=== PATIENT | male | born 1955 | race Caucasian/White ===

== ENCOUNTER → 2017-02-12 | Outpatient (CLI) | payer BC, MEDICARE ==
[2017-02-12 09:41] LABS: Blood Urea Nitrogen 17 mg/dL (9-20); Non-African American GFR(MDRD) >60 (>60 ml/min/1.73 sqM)
--- NOTE | 2017-02-12 11:04 | CT ---
EXAMINATION TYPE: CT angio chest DATE OF EXAM: 02/12/2017 10:51 AM COMPARISON: Prior CTA chest August 03, 2016. HISTORY: Thoracic aortic aneurysm CT DLP: 873 mGycm. Automated Exposure Control for Dose Reduction was Utilized. CONTRAST: CTA scan of the thorax is performed without and with IV Contrast, patient injected with 100 ml mL of Omnipaque 350, pulmonary embolism protocol. MIP Images are created on CT scanner and reviewed. Three -D reconstructed images are also created on independent workstation and reviewed at time of dictation . FINDINGS: LUNGS: Moderate underlying emphysematous changes felt present. No suspicious parenchymal nodule or ma ss is seen bilaterally. No pleural effusion or pneumothorax is noted. There is elevated left hemidiap hragm redemonstrated. MEDIASTINUM: There is satisfactory enhancement of the pulmonary artery and its branches, there is no CT evidence for pulmonary embolism. There are no greater than 1 cm hilar or mediastinal lymph nodes. No cardiomegaly or pericardial effusion is seen. Ascending aorta measures up to 4.3 x 4.2 cm on ax ial image 36 stable in size and appearance from prior exam. At root level identified. 3.9 cm prominen ce unchanged from prior study on axial image 25. No aneurysmal extension into the aortic arch or desc ending aorta is seen. There is mild to moderate anomaly noncalcified plaque in the descending thoraci c aorta extending into the abdominal aorta. Coronary artery calcification is redemonstrated which is known marker for coronary artery disease. Other: Cholecystectomy clips are redemonstrated. Scoliotic curvature involving the upper thoracic spi ne is redemonstrated. IMPRESSION: Ascending aorta measuring 4.3 cm In diameter on my measurements is stable in size and flynn earance from prior exam.
== END | disposition home or self-care (01) ==
LOC: RADCTMAIN 09:03
PROVIDERS: ATTEND Thoracic Surgery (Cardiothoracic Vascular Surgery)
DX: I71.2 Thoracic aortic aneurysm, without rupture (principal)
CPT/HCPCS: 82565; 84520; 71275; 36415; Q9967

== ENCOUNTER → 2017-09-14 | Outpatient (CLI) | payer BC, MEDICARE ==
[2017-09-14 09:00] LABS: Basophils # (A) 0.2 k/uL (0-0.2); Basophils % (A) 2 %; CH 31.8; CHCM 32.8; Eosinophils # (A) 0.3 k/uL (0-0.7); Eosinophils % (A) 3 %; HDW 2.41; HGB 14.9 gm/dL (13.0-17.5); Luc # (Auto) 0.19; Luc % (Auto) 2; Lymphocytes % (A) 31 %; MCH 30.9 pg (25.0-35.0); MCHC 31.8 g/dL (31.0-37.0); MCV 97.3 fL (80.0-100.0); Mean Platelet Volume 6.7; Monocytes # (A) 0.9 k/uL (0-1.0); Monocytes % (A) 10 %; Neutrophils # (A) 5.1 k/uL (1.3-7.7); Neutrophils % (A) 53 %; RBC 4.83 m/uL (4.30-5.90); RDW 12.8 % (11.5-15.5); WBC 9.7 k/uL (3.8-10.6); WBC (Perox) 9.75
[2017-09-14 09:18] LABS: ALT 27 U/L (21-72); AST 16 U/L (17-59); Alkaline Phosphatase 81 U/L (38-126); Anion Gap 8 mmol/L; Blood Urea Nitrogen 15 mg/dL (9-20); Calcium 9.5 mg/dL (8.4-10.2); Carbon Dioxide 30 mmol/L (22-30); Chloride 101 mmol/L (98-107); Cholesterol 202 mg/dL (<200); Glucose 138 mg/dL (74-99); HDL Cholesterol 45 mg/dL (40-60); Non-African American GFR(MDRD) >60 (>60 ml/min/1.73 sqM); Potassium 4.3 mmol/L (3.5-5.1); Sodium 139 mmol/L (137-145); Total Bilirubin 0.5 mg/dL (0.2-1.3); Total Protein 6.4 g/dL (6.3-8.2)
[2017-09-14 09:46] LABS: Prostate Specific Antigen 1.39 ng/mL (0.00-4.00)
== END | disposition home or self-care (01) ==
LOC: LABWHC1 08:38
PROVIDERS: ATTEND Family Medicine
DX: Z00.01 Encounter for general adult medical examination with abnormal findings (principal); G81.91 Hemiplegia, unspecified affecting right dominant side; J44.9 Chronic obstructive pulmonary disease, unspecified; E11.65 Type 2 diabetes mellitus with hyperglycemia; G45.9 Transient cerebral ischemic attack, unspecified; Z12.5 Encounter for screening for malignant neoplasm of prostate
CPT/HCPCS: 80061; 80053; 84443; 85025; 36415; G0103; 84153

== ENCOUNTER 2018-01-24 12:55 | Inpatient (IN) | payer BC, MEDICARE ==
[2018-01-24] MEDS ORDERED: IBUPROFEN 600 MG TAB PO STA (12:59)
[2018-01-24] MEDS ORDERED: ACETAMINOPHEN TAB 500 MG TAB PO STA (12:59)
[2018-01-24] MEDS ORDERED: IPRATROPIUM-ALBUTEROL 3 ML NEB INHALATION STA (13:02)
--- NOTE | 2018-01-24 13:03 | ED ---
General Adult HPI - General Chief complaint: Shortness of Breath Stated complaint: FABIAN, FLU Time Seen by Provider: 01/24/18 12:55 Source: patient, EMS, RN notes reviewed Mode of arrival: EMS Limitations: no limitations - History of Present Illness Initial comments: This is a 63-year-old male who presents emergency Department with a past medical history significant for COPD. Patient states over the last week his has some difficulty breathing but over the last couple days ago consulting worse they went to urgent care. Urgent care noted that he had a COPD exacerbation but stated his temperature was normal. However when the patient got to the emergency department had 101 fever. Patient states he was exposed to influenza about one week ago. Patient denies any chest pain or palpitations. Patient denies abdominal pain. Patient denies nausea vomiting diarrhea. Patient denies any back pain. Patient states she has been coughing up some sputum however. - Related Data Home Medications Medication Instructions Recorded Confirmed Insulin Aspart [NovoLOG Flexpen] See Protocol SQ AC-TID 12/21/14 01/24/18 Insulin Glargine [Lantus] 24 unit SQ HS 12/21/14 01/24/18 Levothyroxine Sodium [Synthroid] 112 mcg PO DAILY 12/21/14 01/24/18 Tiotropium Ringold [Spiriva] 18 mcg INHALATION RT-DAILY 12/21/14 01/24/18 Aspirin EC [Ecotrin Low Dose] 81 mg PO DAILY 03/09/16 01/24/18 Albuterol Inhaler [Ventolin Hfa 1 - 2 puff INHALATION RT-Q6H PRN 01/24/18 Inhaler] Albuterol Nebulized [Ventolin 2.5 mg INHALATION RT-QID PRN 01/24/18 01/24/18 Nebulized] Budesonide-Formot 160-4.5 Mcg 2 puff INHALATION RT-BID 01/24/18 01/24/18 [Symbicort 160-4.5 Mcg Inhaler] Ciprofloxacin HCl [Cipro] 500 mg PO Q12HR 01/24/18 01/24/18 Depo-Medrol 80 mg IM ONCE 01/24/18 01/24/18 Furosemide [Lasix] 20 mg PO DAILY 01/24/18 01/24/18 Losartan Potassium 100 mg PO DAILY 03/19/18 03/19/18 Varenicline [Chantix Continuing 1 mg PO BID 01/24/18 01/24/18 Pack] predniSONE See Taper PO DIRECTED 01/24/18 01/24/18 Previous Rx's Medication Instructions Recorded Atorvastatin [Lipitor] 80 mg PO DAILY #30 tab 12/24/14 Acetaminophen Tab [Tylenol] 650 mg PO Q4HR PRN #0 tab 09/13/15 Allergies Allergy/AdvReac Type Severity Reaction Status Date / Time bupropion HCl Allergy Unknown Verified 01/24/18 13:03 [From Wellbutrin] Review of Systems ROS Statement: Those systems with pertinent positive or pertinent negative responses have been documented in the HPI. ROS Other: All systems not noted in ROS Statement are negative. Past Medical History Past Medical History: COPD, CVA/TIA, Diabetes Mellitus, Hyperlipidemia, Hypertension, Thyroid Disorder Additional Past Medical History / Comment(s): Hemorrhagic CVA requiring evacuation surgically done at [facility], shingles recovered approximately 6 months ago, COPD and chronic bronchitis, diabetes mellitus, hypertension, hyperlipidemia Last Myocardial Infarction Date:: unk History of Any Multi-Drug Resistant Organisms: None Reported Past Surgical History: Cholecystectomy, Heart Catheterization With Stent, Orthopedic Surgery Additional Past Surgical History / Comment(s): Right ankle ORIF, left arm medial nerve surgery 15 years ago; brain surgery due to hemorrhagic stroke Past Anesthesia/Blood Transfusion Reactions: No Reported Reaction Date of Last Stent Placement:: Past Psychological History: No Psychological Hx Reported Smoking Status: Light tobacco smoker Past Alcohol Use History: None Reported Past Drug Use History: None Reported - Past Family History Mother Family Medical History: Diabetes Mellitus Additional Family Medical History / Comment(s): at age 65 from diabetic complications Father Family Medical History: Myocardial Infarction (PR) Brother(s) Additional Family Medical History / Comment(s): He has 2 brothers, one from AIDS at age 56, one brother is alive and underwent CABG in his 50s. Sister(s) Family Medical History: COPD, Diabetes Mellitus Additional Family Medical History / Comment(s): He has 3 sisters, one from COPD, one is alive with diabetes, one alive and healthy. General Exam - General Exam Comments Initial Comments: GENERAL: Patient is well-developed and well-nourished. Patient is nontoxic and well- hydrated and is in mild distress. ENT: Neck is soft and supple. No significant lymphadenopathy is noted. Oropharynx is clear. Moist mucous membranes. Neck has full range of motion without eliciting any pain. EYES: The sclera were anicteric and conjunctiva were pink and moist. Extraocular movements were intact and pupils were equal round and reactive to light. Eyelids were unremarkable. PULMONARY: Unlabored respirations. Good breath sounds bilaterally. Patient has symmetric very wheezing. CARDIOVASCULAR: There is a regular rate and rhythm without any murmurs gallops or rubs. ABDOMEN: Soft and nontender with normal bowel sounds. No palpable organomegaly was noted. There is no palpable pulsatile mass. SKIN: Skin is clear with no lesions or rashes and otherwise unremarkable. NEUROLOGIC: Patient is alert and oriented x3. Cranial nerves II through XII are grossly intact. Motor and sensory are also intact. Normal speech, volume and content. Symmetrical smile. MUSCULOSKELETAL: Normal extremities with adequate strength and full range of motion. LYMPHATICS: No significant lymphadenopathy is noted PSYCHIATRIC: Normal psychiatric evaluation. Limitations: no limitations Course Vital Signs 01/24/18 01/24/18 01/24/18 12:58 12:59 13:44 Temperature 100.8 F H Pulse Rate 125 H 114 H Respiratory 24 22 Rate Blood Pressure 143/80 O2 Sat by Pulse 93 L Oximetry 01/24/18 13:55 Temperature Pulse Rate 112 H Respiratory Rate Blood Pressure O2 Sat by Pulse Oximetry Medical Decision Making - Medical Decision Making EKG shows sinus tachycardia at a rate of 120 bpm GA interval is 140 QRS 72 QT interval 376 QTC is 531. Patient's EKG shows no ST segment elevation or depression or T wave abnormalities are noted. Chest x-ray shows no acute abnormality. Patient is oxygenating better but won't take him off and she dropped down into the 88. I spoke with Dr. Galeana he agreed to admit the patient admitted the patient I wrote admitting orders I continued steroids and breathing treatments on the floor. - Lab Data Result diagrams: 01/24/18 13:08 01/24/18 13:08 Lab Results 01/24/18 01/24/18 01/24/18 Range/Units 13:08 13:08 13:46 WBC 14.8 H (3.8-10.6) k/uL RBC 5.21 (4.30-5.90) m/uL Hgb 15.9 (13.0-17.5) gm/dL Hct 47.1 (39.0-53.0) % MCV 90.4 (80.0-100.0) fL MCH 30.5 (25.0-35.0) pg MCHC 33.7 (31.0-37.0) g/dL RDW 13.7 (11.5-15.5) % Plt Count 232 (150-450) k/uL Neutrophils % 79 % Lymphocytes % 13 % Monocytes % 6 % Eosinophils % 0 % Basophils % 1 % Neutrophils # 11.7 H (1.3-7.7) k/uL Lymphocytes # 1.9 (1.0-4.8) k/uL Monocytes # 1.0 (0-1.0) k/uL Eosinophils # 0.0 (0-0.7) k/uL Basophils # 0.1 (0-0.2) k/uL Sodium 136 L (137-145) mmol/L Potassium 4.0 (3.5-5.1) mmol/L Chloride 99 (98-107) mmol/L Carbon Dioxide 23 (22-30) mmol/L Anion Gap 14 mmol/L BUN 18 (9-20) mg/dL Creatinine 0.79 (0.66-1.25) mg/dL Est GFR (CKD-EPI)AfAm >90 (>60 ml/min/1.73 sqM) Est GFR (CKD-EPI)NonAf >90 (>60 ml/min/1.73 sqM) Glucose 271 H (74-99) mg/dL Plasma Lactic Acid Young (0.7-2.0) mmol/L Calcium 9.3 (8.4-10.2) mg/dL Total Bilirubin 1.4 H (0.2-1.3) mg/dL AST 30 (17-59) U/L ALT 46 (21-72) U/L Alkaline Phosphatase 105 (38-126) U/L Total Protein 6.9 (6.3-8.2) g/dL Albumin 3.9 (3.5-5.0) g/dL Influenza Type A RNA Not Detected (Not Detectd) Influenza Type B (PCR) Not Detected (Not Detectd) 01/24/18 Range/Units 13:46 WBC (3.8-10.6) k/uL RBC (4.30-5.90) m/uL Hgb (13.0-17.5) gm/dL Hct (39.0-53.0) % MCV (80.0-100.0) fL MCH (25.0-35.0) pg MCHC (31.0-37.0) g/dL RDW (11.5-15.5) % Plt Count (150-450) k/uL Neutrophils % % Lymphocytes % % Monocytes % % Eosinophils % % Basophils % % Neutrophils # (1.3-7.7) k/uL Lymphocytes # (1.0-4.8) k/uL Monocytes # (0-1.0) k/uL Eosinophils # (0-0.7) k/uL Basophils # (0-0.2) k/uL Sodium (137-145) mmol/L Potassium (3.5-5.1) mmol/L Chloride (98-107) mmol/L Carbon Dioxide (22-30) mmol/L Anion Gap mmol/L BUN (9-20) mg/dL Creatinine (0.66-1.25) mg/dL Est GFR (CKD-EPI)AfAm (>60 ml/min/1.73 sqM) Est GFR (CKD-EPI)NonAf (>60 ml/min/1.73 sqM) Glucose (74-99) mg/dL Plasma Lactic Acid Young 1.5 (0.7-2.0) mmol/L Calcium (8.4-10.2) mg/dL Total Bilirubin (0.2-1.3) mg/dL AST (17-59) U/L ALT (21-72) U/L Alkaline Phosphatase (38-126) U/L Total Protein (6.3-8.2) g/dL Albumin (3.5-5.0) g/dL Influenza Type A RNA (Not Detectd) Influenza Type B (PCR) (Not Detectd) Disposition Clinical Impression: Acute exacerbation of chronic obstructive pulmonary disease (COPD) Disposition: ADMITTED IP TO THIS HOSP Referrals: Lee Galeana MD [Primary Care Provider] - 1-2 days Time of Disposition: 14:19
[2018-01-24] MEDS: SODIUM CHLORIDE 0.9% 500 ML IV SCH ×2 (13:11→13:12)
--- NOTE | 2018-01-24 13:45 | XR ---
EXAMINATION TYPE: XR chest 2V DATE OF EXAM: 01/24/2018 COMPARISON: 03/08/2016 HISTORY: Flulike symptoms TECHNIQUE: Frontal and lateral views of the chest are obtained. FINDINGS: There is chronic left hemidiaphragm elevation and left basilar subsegmental atelectasis in comparison to the exam of 2016. Vertebral bodies appear to demonstrate osseous demineralization. Biap ical lucency suggests underlying COPD. There is no focal air space opacity, pleural effusion, or pneu mothorax seen. The cardiac silhouette size is within normal limits. The osseous structures are int act. IMPRESSION: Findings suggesting underlying COPD and chronic left hemidiaphragm elevation/left basilar atelectasis. No acute cardiopulmonary process.
[2018-01-24 13:47] LABS: Basophils # (A) 0.1 k/uL (0-0.2); Basophils % (A) 1 %; Eosinophils % (A) 0 %; HCT 47.1 % (39.0-53.0); HGB 15.9 gm/dL (13.0-17.5); Lymphocytes # (A) 1.9 k/uL (1.0-4.8); Lymphocytes % (A) 13 %; MCH 30.5 pg (25.0-35.0); MCHC 33.7 g/dL (31.0-37.0); MCV 90.4 fL (80.0-100.0); Mean Platelet Volume 8.8; Monocytes % (A) 6 %; Neutrophils # (A) 11.7 k/uL (1.3-7.7); Neutrophils % (A) 79 %; Platelet Count 232 k/uL (150-450); RBC 5.21 m/uL (4.30-5.90); RDW 13.7 % (11.5-15.5); WBC 14.8 k/uL (3.8-10.6)
[2018-01-24 13:57] LABS: ALT 46 U/L (21-72); AST 30 U/L (17-59); Albumin 3.9 g/dL (3.5-5.0); Alkaline Phosphatase 105 U/L (38-126); Anion Gap 14 mmol/L; Blood Urea Nitrogen 18 mg/dL (9-20); Calcium 9.3 mg/dL (8.4-10.2); Carbon Dioxide 23 mmol/L (22-30); Chloride 99 mmol/L (98-107); Glucose 271 mg/dL (74-99); Sodium 136 mmol/L (137-145); Total Bilirubin 1.4 mg/dL (0.2-1.3); Total Protein 6.9 g/dL (6.3-8.2)
[2018-01-24 14:18] LABS: Partial Thromboplastin Time 21.5 sec (22.0-30.0)
[2018-01-24] MEDS ORDERED: LEVOFLOXACIN 750MG-D5W PMX 750 MG in DEXTROSE/WATER 1 150ML.BAG IVPB STA (14:19)
[2018-01-24] MEDS ORDERED: IPRATROPIUM-ALBUTEROL 3 ML NEB INHALATION PRN (14:20)
[2018-01-24 16:02] VITALS: BMI 24.4
[2018-01-24 17:26] LABS: Appearance,Urine Clear (Clear); Bilirubin,Urine Negative (Negative); Blood,Urine Negative (Negative); Color,Urine Yellow; Glucose,Urine (UA) 4+ (Negative); Ketones,Urine 1+ (Negative); Leukocyte Esterase,Urine Negative (Negative); Nitrite,Urine Negative (Negative); PH, Urine 5.5 (5.0-8.0); Protein,Urine Trace (Negative); Specific Gravity,Urine 1.021 (1.001-1.035); Urobilinogen,Urine <2.0 mg/dL (<2.0)
[2018-01-24 17:26] LABS: Glucose,Whole Blood 442 mg/dL (75-99)
[2018-01-24] MEDS: methylPREDNISolone SOD SUCCI 125 MG/2 ML VIAL IV SCH (17:41)
[2018-01-24] MEDS: INSULIN ASPART 100 UNIT/ML 1 ML 10 ML VIAL SQ SCH ×2 (17:41→22:24)
[2018-01-24] MEDS: HEPARIN SODIUM,PORCINE 5,000 UNIT/ML 1 ML VIAL SQ SCH (17:41)
[2018-01-24 20:33] LABS: Glucose,Whole Blood >600 mg/dL (75-99)
[2018-01-24 20:33] LABS: Glucose,Whole Blood >600 mg/dL (75-99)
[2018-01-24] MEDS ORDERED: INSULIN DETEMIR 100 UNIT/ML 10 ML VIAL SQ SCH (21:00)
[2018-01-24] MEDS: VARENICLINE 1 MG TAB PO SCH (22:24)
[2018-01-24] MEDS: INSULIN REGULAR 100 UNIT in SODIUM CHLORIDE 0.9% 100 ML IV SCH (23:54)
[2018-01-25 00:43] LABS: Glucose,Whole Blood 411 mg/dL (75-99)
[2018-01-25 01:03] LABS: Glucose,Whole Blood 420 mg/dL (75-99)
[2018-01-25] MEDS: methylPREDNISolone SOD SUCCI 125 MG/2 ML VIAL IV SCH ×5 (01:04→23:29)
[2018-01-25] MEDS: HEPARIN SODIUM,PORCINE 5,000 UNIT/ML 1 ML VIAL SQ SCH ×4 (01:04→23:29)
[2018-01-25 01:31] LABS: Glucose,Whole Blood 325 mg/dL (75-99)
[2018-01-25 02:03] LABS: Glucose,Whole Blood 307 mg/dL (75-99)
[2018-01-25 02:41] LABS: Glucose,Whole Blood 238 mg/dL (75-99)
[2018-01-25 04:31] LABS: Hemoglobin A1C 12.9 % (4.0-6.0)
[2018-01-25 04:31] LABS: Glucose,Whole Blood 151 mg/dL (75-99)
[2018-01-25 06:28] LABS: Glucose,Whole Blood 148 mg/dL (75-99)
[2018-01-25] MEDS: LEVOTHYROXINE 112 MCG TAB PO SCH (06:30)
[2018-01-25] MEDS ORDERED: INSULIN ASPART 100 UNIT/ML 1 ML 10 ML VIAL SQ SCH ×3 (07:30)
[2018-01-25] MEDS ORDERED: IPRATROPIUM 0.5 MG/2.5 ML NEBU INHALATION SCH (08:00)
[2018-01-25 08:13] LABS: Basophils % (A) 0 %; Eosinophils % (A) 0 %; HCT 41.6 % (39.0-53.0); HGB 14.3 gm/dL (13.0-17.5); Lymphocytes # (A) 1.2 k/uL (1.0-4.8); Lymphocytes % (A) 10 %; MCH 31.3 pg (25.0-35.0); MCHC 34.4 g/dL (31.0-37.0); MCV 90.9 fL (80.0-100.0); Mean Platelet Volume 6.7; Monocytes # (A) 0.6 k/uL (0-1.0); Monocytes % (A) 5 %; Neutrophils # (A) 10.5 k/uL (1.3-7.7); Neutrophils % (A) 84 %; Platelet Count 217 k/uL (150-450); RBC 4.58 m/uL (4.30-5.90); RDW 13.7 % (11.5-15.5); WBC 12.5 k/uL (3.8-10.6)
[2018-01-25 08:39] LABS: ALT 36 U/L (21-72); AST 26 U/L (17-59); Albumin 3.4 g/dL (3.5-5.0); Alkaline Phosphatase 77 U/L (38-126); Anion Gap 11 mmol/L; Blood Urea Nitrogen 25 mg/dL (9-20); Calcium 9.1 mg/dL (8.4-10.2); Carbon Dioxide 31 mmol/L (22-30); Chloride 100 mmol/L (98-107); Glucose 125 mg/dL (74-99); Potassium 3.9 mmol/L (3.5-5.1); Sodium 142 mmol/L (137-145); Total Bilirubin 0.9 mg/dL (0.2-1.3); Total Protein 6.2 g/dL (6.3-8.2)
[2018-01-25 08:46] LABS: Glucose,Whole Blood 206 mg/dL (75-99)
[2018-01-25] MEDS: ATORVASTATIN 80 MG TAB PO SCH (09:30)
[2018-01-25] MEDS: VARENICLINE 1 MG TAB PO SCH ×2 (09:30→20:46)
[2018-01-25] MEDS: LOSARTAN 50 MG TAB PO SCH (09:30)
[2018-01-25] MEDS: FUROSEMIDE 20 MG TAB PO SCH (09:30)
[2018-01-25] MEDS: ASPIRIN 81 MG PO SCH (09:31)
[2018-01-25] MEDS: PANTOPRAZOLE 40 MG TABLET PO SCH (09:31)
[2018-01-25] MEDS: INSULIN ASPART 100 UNIT/ML 1 ML 10 ML VIAL SQ SCH ×3 (09:31→18:45)
--- NOTE | 2018-01-25 10:12 | P.HPIM ---
History of Present Illness H&P Date: 01/25/18 Chief Complaint: Shortness of breath 63-year-old male who presented to the emergency room with a chief complaint of shortness of breath. The patient states he originally went to urgent care and was told he possibly was having a COPD exacerbation and was referred to the emergency room. Patient admits to sputum production. Admits to feeling feverish. Temperature when he presented to the emergency room was 100.8. Patient denies chest pain or pressure. Denies palpitations. Denies pain or discomfort. Denies nausea or vomiting. The patient states he was exposed to someone with influenza approximately one week ago. Testing for influenza was negative. The patient has a history of COPD, diabetes mellitus type 2, hyperlipidemia, hypertension, and hypothyroidism. 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 He was also diagnosed with shingles approximately 6 months ago. Patient is a history of stent placement. He is a former cigarette smoker. Chest x-ray: Findings suggestive of underlying COPD and chronic left hemidiaphragm elevation/left basilar atelectasis. No acute cardiopulmonary process. Laboratory data: WBC 14.8. Hemoglobin 15.9. Platelet count 232. Sodium 136. Potassium 4.0. B UN 18. Creatinine 0.79. Glucose 271. Lactic acid 1.5. Urinalysis reveals: Trace proteinuria, 4+ glucose, 1+ ketones The patient was admitted to the hospital under the care of Dr. Galeana. Consultations were placed to pulmonary. His blood sugars were significantly elevated last night with readings over 600. He was started on insulin drip. Review of Systems GENERAL: Positive for fevers. Denies chills. EYES: Denies blurred vision. Denies vision changes. Denies eye pain. EARS, NOSE, MOUTH, & THROAT: Denies headache. Denies sore throat. Denies ear pain. RESPIRATORY: Positive for shortness of breath. Positive for sputum production. Positive for coughing. Denies hemoptysis. CARDIOVASCULAR: Denies chest pain or pressure. Denies palpitations. Denies arrhythmias. GASTROINTESTINAL: Denies abdominal pain. Denies diarrhea. Denies constipation. Denies nausea. Denies vomiting. Denies heartburn. Denies blood in the stool. GENITOURINARY: Denies urinary frequency. Denies burning. Denies dysuria. Denies cloudy urine. Denies blood in the urine. MUSCULOSKELETAL: Denies myalgias. Denies joint swelling. Denies decreased range of motion beyond patients baseline. INTEGUMENTARY: Denies pruitis. Denies rash. PSYCHIATRIC: Denies suicidal or homicial ideations. ENDOCRINE: Denies weight change. Denies polydipsia. Denies polyuria. HEMATOLOGIC: Denies bleeding disorders. Past Medical History Past Medical History: COPD, CVA/TIA, Diabetes Mellitus, Hyperlipidemia, Hypertension, Thyroid Disorder Additional Past Medical History / Comment(s): Hemorrhagic CVA requiring evacuation surgically done at [facility], shingles recovered approximately 6 months ago, COPD and chronic bronchitis, diabetes mellitus, hypertension, hyperlipidemia Last Myocardial Infarction Date:: unk History of Any Multi-Drug Resistant Organisms: None Reported Past Surgical History: Cholecystectomy, Heart Catheterization With Stent, Orthopedic Surgery Additional Past Surgical History / Comment(s): Right ankle ORIF, left arm medial nerve surgery 15 years ago; brain surgery due to hemorrhagic stroke Past Anesthesia/Blood Transfusion Reactions: No Reported Reaction Date of Last Stent Placement:: Past Psychological History: No Psychological Hx Reported Smoking Status: Former smoker Past Alcohol Use History: None Reported Additional Past Alcohol Use History / Comment(s): Patient is a smoker of one pack per day for 30 years. He stopped 9 months ago He drinks alcohol infrequently. He lives at home with his and 7-year-old daughter. He also has 3 adult daughters that are healthy. 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 Past Drug Use History: None Reported - Past Family History Mother Family Medical History: Diabetes Mellitus Additional Family Medical History / Comment(s): at age 65 from diabetic complications Father Family Medical History: Myocardial Infarction ([place]) Brother(s) Additional Family Medical History / Comment(s): He has 2 brothers, one from AIDS at age 56, one brother is alive and underwent CABG in his 50s. Sister(s) Family Medical History: COPD, Diabetes Mellitus Additional Family Medical History / Comment(s): He has 3 sisters, one from COPD, one is alive with diabetes, one alive and healthy. Medications and Allergies Home Medications Medication Instructions Recorded Confirmed Type Insulin Aspart [NovoLOG Flexpen] See Protocol SQ AC-TID 12/21/14 01/24/18 History Insulin Glargine [Lantus] 24 unit SQ HS 12/21/14 01/24/18 History Levothyroxine Sodium [Synthroid] 112 mcg PO DAILY 12/21/14 01/24/18 History Tiotropium [place] [Spiriva] 18 mcg INHALATION RT-DAILY 12/21/14 01/24/18 History Atorvastatin [Lipitor] 80 mg PO DAILY #30 tab 12/24/14 01/24/18 Rx Acetaminophen Tab [Tylenol] 650 mg PO Q4HR PRN #0 tab 09/13/15 03/09/16 Rx Aspirin EC [Ecotrin Low Dose] 81 mg PO DAILY 03/09/16 01/24/18 History Albuterol Inhaler [Ventolin Hfa 1 - 2 puff INHALATION RT-Q6H PRN 01/24/18 History Inhaler] Albuterol Nebulized [Ventolin 2.5 mg INHALATION RT-QID PRN 01/24/18 01/24/18 History Nebulized] Budesonide-Formot 160-4.5 Mcg 2 puff INHALATION RT-BID 01/24/18 01/24/18 History [Symbicort 160-4.5 Mcg Inhaler] Ciprofloxacin HCl [Cipro] 500 mg PO Q12HR 01/24/18 01/24/18 History Depo-Medrol 80 mg IM ONCE 01/24/18 01/24/18 History Furosemide [Lasix] 20 mg PO DAILY 01/24/18 01/24/18 History Losartan Potassium 100 mg PO DAILY 01/24/18 01/24/18 History Varenicline [Chantix Continuing 1 mg PO BID 01/24/18 01/24/18 History Pack] predniSONE See Taper PO DIRECTED 01/24/18 01/24/18 History Allergies Allergy/AdvReac Type Severity Reaction Status Date / Time bupropion HCl Allergy Unknown Verified 01/24/18 13:03 [From Wellbutrin] Physical Exam Vitals: Vital Signs Temp Pulse Pulse Resp BP BP Pulse Ox 01/25/18 07:54 80 01/25/18 07:43 76 01/25/18 06:36 97.0 F L 67 16 115/76 96 01/24/18 23:00 98.0 F 89 16 129/50 92 L 01/24/18 15:53 97.3 F L 103 H 18 103/63 95 01/24/18 15:44 98.8 F 85 18 104/58 94 L 01/24/18 15:22 85 18 104/58 94 L 01/24/18 13:55 112 H 01/24/18 13:44 114 H 01/24/18 12:59 22 01/24/18 12:58 100.8 F H 125 H 24 143/80 93 L Intake and Output 01/24/18 01/25/18 01/25/18 22:59 06:59 14:59 Intake Total 80.608 4.525 Balance 80.608 4.525 Intake: Intake, IV Titration 80.608 4.525 Amount Insulin Regular 100 unit 80.608 4.525 In Sodium Chloride 0.9% 100 ml @ Titrate IV .Q0M [facility] Rx#:[id number] Other: # Voids 1 2 # Bowel Movements 0 0 GENERAL: This is a 63-year-old male in no apparent distress at the time of examination. Pleasant and cooperative. HEENT: Head is atraumatic, normocephalic. Pupils are equal, round, and reactive to light. Sclerae anicteric. Conjunctivae are clear. Mucus membranes of the mouth are moist. Neck is supple. RESPIRATORY: Decreased air exchange. Expiratory wheezing noted. Scattered rhonchi. Frequent coughing noted during examination. No use of accessory muscles. Patient maintaining oxygen saturation greater than 92% on 3 L nasal cannula. No chest wall tenderness is noted on palpation or with deep breathing. CARDIOVASCULAR: Regular rate and rhythm. S1 and S2 noted. No JVD noted. No S3 or S4 noted. GASTROINTESTINAL: No distention noted. Abdomen soft and round. Normal active bowel sounds auscultated x 4 quadrants. No pain or tenderness noted upon palpation. INTEGUMENTARY: No cyanosis. No jaundice. No rashes noted. No cellulitis noted. EXTREMITIES: 2+ peripheral pulses. No evidence of peripheral edema. No calf tenderness noted. NEUROLOGIC: Cranial nerves II-XII intact. PSYCHIATRIC: Awake, alert, and oriented X 3. Appropriate affect. Intact judgement and insight. Results CBC & Chem 7: 01/25/18 07:35 01/25/18 07:35 Labs: Abnormal Lab Results - Last 24 Hours (Table) 01/24/18 01/24/18 01/24/18 Range/Units 13:08 13:08 13:08 WBC 14.8 H (3.8-10.6) k/uL Neutrophils # 11.7 H (1.3-7.7) k/uL APTT 21.5 L (22.0-30.0) sec Sodium 136 L (137-145) mmol/L Carbon Dioxide (22-30) mmol/L BUN (9-20) mg/dL Glucose 271 H (74-99) mg/dL POC Glucose (mg/dL) (75-99) mg/dL Hemoglobin A1c (4.0-6.0) % Total Bilirubin 1.4 H (0.2-1.3) mg/dL Total Protein (6.3-8.2) g/dL Albumin (3.5-5.0) g/dL Urine Protein (Negative) Urine Glucose (UA) (Negative) Urine Ketones (Negative) 01/24/18 01/24/18 01/24/18 Range/Units 13:08 17:00 17:14 WBC (3.8-10.6) k/uL Neutrophils # (1.3-7.7) k/uL APTT (22.0-30.0) sec Sodium (137-145) mmol/L Carbon Dioxide (22-30) mmol/L BUN (9-20) mg/dL Glucose (74-99) mg/dL POC Glucose (mg/dL) 442 H (75-99) mg/dL Hemoglobin A1c 12.9 H (4.0-6.0) % Total Bilirubin (0.2-1.3) mg/dL Total Protein (6.3-8.2) g/dL Albumin (3.5-5.0) g/dL Urine Protein Trace H (Negative) Urine Glucose (UA) 4+ H (Negative) Urine Ketones 1+ H (Negative) 01/24/18 01/24/18 01/24/18 Range/Units 20:22 20:24 21:22 WBC (3.8-10.6) k/uL Neutrophils # (1.3-7.7) k/uL APTT (22.0-30.0) sec Sodium (137-145) mmol/L Carbon Dioxide (22-30) mmol/L BUN (9-20) mg/dL Glucose 593 H* (74-99) mg/dL POC Glucose (mg/dL) >600 H >600 H (75-99) mg/dL Hemoglobin A1c (4.0-6.0) % Total Bilirubin (0.2-1.3) mg/dL Total Protein (6.3-8.2) g/dL Albumin (3.5-5.0) g/dL Urine Protein (Negative) Urine Glucose (UA) (Negative) Urine Ketones (Negative) 01/25/18 01/25/18 01/25/18 Range/Units 00:29 01:01 01:29 WBC (3.8-10.6) k/uL Neutrophils # (1.3-7.7) k/uL APTT (22.0-30.0) sec Sodium (137-145) mmol/L Carbon Dioxide (22-30) mmol/L BUN (9-20) mg/dL Glucose (74-99) mg/dL POC Glucose (mg/dL) 411 H 420 H 325 H (75-99) mg/dL Hemoglobin A1c (4.0-6.0) % Total Bilirubin (0.2-1.3) mg/dL Total Protein (6.3-8.2) g/dL Albumin (3.5-5.0) g/dL Urine Protein (Negative) Urine Glucose (UA) (Negative) Urine Ketones (Negative) 01/25/18 01/25/18 01/25/18 Range/Units 02:01 02:38 04:29 WBC (3.8-10.6) k/uL Neutrophils # (1.3-7.7) k/uL APTT (22.0-30.0) sec Sodium (137-145) mmol/L Carbon Dioxide (22-30) mmol/L BUN (9-20) mg/dL Glucose (74-99) mg/dL POC Glucose (mg/dL) 307 H 238 H 151 H (75-99) mg/dL Hemoglobin A1c (4.0-6.0) % Total Bilirubin (0.2-1.3) mg/dL Total Protein (6.3-8.2) g/dL Albumin (3.5-5.0) g/dL Urine Protein (Negative) Urine Glucose (UA) (Negative) Urine Ketones (Negative) 01/25/18 01/25/18 01/25/18 Range/Units 06:26 07:35 07:35 WBC 12.5 H (3.8-10.6) k/uL Neutrophils # 10.5 H (1.3-7.7) k/uL APTT (22.0-30.0) sec Sodium (137-145) mmol/L Carbon Dioxide 31 H (22-30) mmol/L BUN 25 H (9-20) mg/dL Glucose 125 H (74-99) mg/dL POC Glucose (mg/dL) 148 H (75-99) mg/dL Hemoglobin A1c (4.0-6.0) % Total Bilirubin (0.2-1.3) mg/dL Total Protein 6.2 L (6.3-8.2) g/dL Albumin 3.4 L (3.5-5.0) g/dL Urine Protein (Negative) Urine Glucose (UA) (Negative) Urine Ketones (Negative) 01/25/18 Range/Units 08:31 WBC (3.8-10.6) k/uL Neutrophils # (1.3-7.7) k/uL APTT (22.0-30.0) sec Sodium (137-145) mmol/L Carbon Dioxide (22-30) mmol/L BUN (9-20) mg/dL Glucose (74-99) mg/dL POC Glucose (mg/dL) 206 H (75-99) mg/dL Hemoglobin A1c (4.0-6.0) % Total Bilirubin (0.2-1.3) mg/dL Total Protein (6.3-8.2) g/dL Albumin (3.5-5.0) g/dL Urine Protein (Negative) Urine Glucose (UA) (Negative) Urine Ketones (Negative) Microbiology - Last 24 Hours (Table) 01/24/18 17:00 Urine Culture - Preliminary Urine,Clean Catch Thrombosis Risk Factor Assmnt - Choose All That Apply Any of the Below Risk Factors Present?: Yes Each Factor Represents 1 point: Abnormal pulmonary function (COPD) Other Risk Factors: Yes Each Risk Factor Represents 2 Points: Age 61-74 years Thrombosis Risk Factor Assessment Total Risk Factor Score: 3 Thrombosis Risk Factor Assessment Level: Moderate Risk Assessment and Plan Plan: ASSESSMENT: Acute exacerbation of chronic obstructive pulmonary disease Fever, tachycardia, and leukocytosis, present on admission, meets SIRS criteria Diabetes mellitus, type II, hemoglobin A1c 12.9% Hyperglycemia, secondary to IV steroids and uncontrolled diabetes mellitus History of hemorrhagic CVA Essential hypertension Coronary artery disease with previous stent placement Hyperlipidemia Hypothyroidism History of nicotine dependence, in remission, patient states he quit smoking 9 months ago after smoking 1 pack per day for 30 years PLAN: Pulmonary on consult. Appreciate recommendations and input Continue IV steroids: 60 mg Q6 hours Continue empiric antibiotics in the form of Levaquin 750 mg daily 24 hours Continue insulin drip. Possible transition to sliding scale tomorrow Consult ems educator for uncontrolled diabetes Home meds as appropriate Monitor labs GI prophylaxis: Protonix 40 mg PO Daily DVT prophylaxis: Heparin 5000 units subcu every 8 hours Monitor vital signs and address as appropriate Discharge planning: Patient to return home when stable Further recommendations pending patient's course Nurse practitioner note has been reviewed by physician. Signing provider agrees with the documented findings, assessment, and plan of care.
[2018-01-25 10:40] LABS: Glucose,Whole Blood 328 mg/dL (75-99)
[2018-01-25] MEDS: IPRATROPIUM-ALBUTEROL 3 ML NEB INHALATION SCH ×3 (11:39→20:37)
[2018-01-25 12:47] LABS: Glucose,Whole Blood 217 mg/dL (75-99)
--- NOTE | 2018-01-25 13:00 | P.CNPUL ---
History of Present Illness Consult date: 01/25/18 Reason for consult: dyspnea, cough, COPD, hypoxemia, abnormal CXR/CT Chief complaint: Shortness of breath History of present illness: Consult dated 01/25/2018 This is a 63-year-old male who presents to the emergency department on January 24 with complaints of increasing shortness of breath. He was seen by me in the office recently treated with Depo-Medrol and extended prednisone burst and taper and some antibiotics. Despite that, he did not improve and that's why he ended up coming to the emergency room. In addition, between the time he saw me last in the ER visit, he apparently went to urgent care. He was found have a slight temperature elevation. He apparently was exposed to influenza was concern. His complaints include chest tightness wheezing coughing chest congestion and phlegm production. Chest x-ray was negative for infiltrate. It just showed COPD. I was concerned the last time I saw him that he might not get better and told to come to the emergency room and they did not. In fact, I think he would benefit from bronchoscopy BAL and airway examination. Review of Systems A 12 point review of system is positive for shortness of breath chest tightness wheezing cough and chest congestion. Past Medical History Past Medical History: COPD, CVA/TIA, Diabetes Mellitus, Hyperlipidemia, Hypertension, Thyroid Disorder Additional Past Medical History / Comment(s): Hemorrhagic CV[facility], COPD and chronic bronchitis, diabetes mellitus, hypertension, hyperlipidemia Last Myocardial Infarction Date:: unk History of Any Multi-Drug Resistant Organisms: None Reported Past Surgical History: Cholecystectomy, Heart Catheterization With Stent, Orthopedic Surgery Additional Past Surgical History / Comment(s): Right ankle ORIF, left arm medial nerve surgery 15 years ago; brain surgery due to hemorrhagic stroke Past Anesthesia/Blood Transfusion Reactions: No Reported Reaction Date of Last Stent Placement:: Past Psychological History: No Psychological Hx Reported Smoking Status: Former smoker Past Alcohol Use History: None Reported Additional Past Alcohol Use History / Comment(s): Patient is a smoker of one pack per day for 30 years. He stopped 9 months ago He drinks alcohol infrequently. He lives at home with his and 7-year-old daughter. He also has 3 adult daughters that are healthy. 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 Past Drug Use History: None Reported - Past Family History Mother Family Medical History: Diabetes Mellitus Additional Family Medical History / Comment(s): at age 65 from diabetic complications Father Family Medical History: Myocardial Infarction ([place]) Brother(s) Additional Family Medical History / Comment(s): He has 2 brothers, one from AIDS at age 56, one brother is alive and underwent CABG in his 50s. Sister(s) Family Medical History: COPD, Diabetes Mellitus Additional Family Medical History / Comment(s): He has 3 sisters, one from COPD, one is alive with diabetes, one alive and healthy. Medications and Allergies Home Medications Medication Instructions Recorded Confirmed Type Insulin Aspart [NovoLOG Flexpen] See Protocol SQ AC-TID 12/21/14 01/24/18 History Insulin Glargine [Lantus] 24 unit SQ HS 12/21/14 01/24/18 History Levothyroxine Sodium [Synthroid] 112 mcg PO DAILY 12/21/14 01/24/18 History Tiotropium [place] [Spiriva] 18 mcg INHALATION RT-DAILY 12/21/14 01/24/18 History Atorvastatin [Lipitor] 80 mg PO DAILY #30 tab 12/24/14 01/24/18 Rx Acetaminophen Tab [Tylenol] 650 mg PO Q4HR PRN #0 tab 09/13/15 03/09/16 Rx Aspirin EC [Ecotrin Low Dose] 81 mg PO DAILY 03/09/16 01/24/18 History Albuterol Inhaler [Ventolin Hfa 1 - 2 puff INHALATION RT-Q6H PRN 01/24/18 History Inhaler] Albuterol Nebulized [Ventolin 2.5 mg INHALATION RT-QID PRN 01/24/18 01/24/18 History Nebulized] Budesonide-Formot 160-4.5 Mcg 2 puff INHALATION RT-BID 01/24/18 01/24/18 History [Symbicort 160-4.5 Mcg Inhaler] Ciprofloxacin HCl [Cipro] 500 mg PO Q12HR 01/24/18 01/24/18 History Depo-Medrol 80 mg IM ONCE 01/24/18 01/24/18 History Furosemide [Lasix] 20 mg PO DAILY 01/24/18 01/24/18 History Losartan Potassium 100 mg PO DAILY 01/24/18 01/24/18 History Varenicline [Chantix Continuing 1 mg PO BID 01/24/18 01/24/18 History Pack] predniSONE See Taper PO DIRECTED 01/24/18 01/24/18 History Allergies Allergy/AdvReac Type Severity Reaction Status Date / Time bupropion HCl Allergy Unknown Verified 01/24/18 13:03 [From Wellbutrin] Physical Exam Osteopathic Statement: *. No significant issues noted on an osteopathic structural exam other than those noted in the History and Physical/Consult. Vitals: Vital Signs Temp Pulse Pulse Resp BP BP Pulse Ox 01/25/18 11:52 108 H 01/25/18 11:39 116 H 01/25/18 07:54 80 01/25/18 07:43 76 01/25/18 06:36 97.0 F L 67 16 115/76 96 01/24/18 23:00 98.0 F 89 16 129/50 92 L 01/24/18 15:53 97.3 F L 103 H 18 103/63 95 01/24/18 15:44 98.8 F 85 18 104/58 94 L 01/24/18 15:22 85 18 104/58 94 L 01/24/18 13:55 112 H 01/24/18 13:44 114 H 01/24/18 12:59 22 01/24/18 12:58 100.8 F H 125 H 24 143/80 93 L Intake and Output 01/24/18 01/25/18 01/25/18 22:59 06:59 14:59 Intake Total 80.608 7.925 Balance 80.608 7.925 Intake: Intake, IV Titration 80.608 7.925 Amount Insulin Regular 100 unit 80.608 7.925 In Sodium Chloride 0.9% 100 ml @ Titrate IV .Q0M [facility] Rx#:[id number] Other: # Voids 1 2 # Bowel Movements 0 0 Weight 75 kg No acute distress, oriented 3. Frequent coughing. The cough is wet congested sounding. HEENT examination is grossly unremarkable. Mucous membranes are moist. No oral lesions. Neck supple. Full range of motion. No adenopathy thyromegaly or neck vein distention. Cardiovascular examination reveals regular rhythm rate. S1-S2 normal. No S3 or S4. No discernible murmur noted. Lungs reveal coarse expiratory rhonchi and wheezes. Her sounds are diminished. There is prolongation on forced maneuver. The patient wheezes and coughs on forced maneuver.. Abdomen soft bowel sounds are heard. No masses or tenderness. Extremities are intact. No cyanosis clubbing or edema. Skin is without rash or lesion. Neurologic examination is brief but nonfocal. Results - Laboratory Findings CBC and BMP: 01/25/18 07:35 01/25/18 07:35 PT/INR, D-dimer PT 10.0 sec (9.0-12.0) 01/24/18 13:08 INR 1.0 (<1.2) 01/24/18 13:08 Abnormal lab findings: Abnormal Labs 01/24/18 01/24/18 01/24/18 13:08 13:08 13:08 WBC 14.8 H Neutrophils # 11.7 H APTT 21.5 L Sodium 136 L Carbon Dioxide BUN Glucose 271 H POC Glucose (mg/dL) Hemoglobin A1c Total Bilirubin 1.4 H Total Protein Albumin Urine Protein Urine Glucose (UA) Urine Ketones 01/24/18 01/24/18 01/24/18 13:08 17:00 17:14 WBC Neutrophils # APTT Sodium Carbon Dioxide BUN Glucose POC Glucose (mg/dL) 442 H Hemoglobin A1c 12.9 H Total Bilirubin Total Protein Albumin Urine Protein Trace H Urine Glucose (UA) 4+ H Urine Ketones 1+ H 01/24/18 01/24/18 01/24/18 20:22 20:24 21:22 WBC Neutrophils # APTT Sodium Carbon Dioxide BUN Glucose 593 H* POC Glucose (mg/dL) >600 H >600 H Hemoglobin A1c Total Bilirubin Total Protein Albumin Urine Protein Urine Glucose (UA) Urine Ketones 01/25/18 01/25/18 01/25/18 00:29 01:01 01:29 WBC Neutrophils # APTT Sodium Carbon Dioxide BUN Glucose POC Glucose (mg/dL) 411 H 420 H 325 H Hemoglobin A1c Total Bilirubin Total Protein Albumin Urine Protein Urine Glucose (UA) Urine Ketones 01/25/18 01/25/18 01/25/18 02:01 02:38 04:29 WBC Neutrophils # APTT Sodium Carbon Dioxide BUN Glucose POC Glucose (mg/dL) 307 H 238 H 151 H Hemoglobin A1c Total Bilirubin Total Protein Albumin Urine Protein Urine Glucose (UA) Urine Ketones 01/25/18 01/25/18 01/25/18 06:26 07:35 07:35 WBC 12.5 H Neutrophils # 10.5 H APTT Sodium Carbon Dioxide 31 H BUN 25 H Glucose 125 H POC Glucose (mg/dL) 148 H Hemoglobin A1c Total Bilirubin Total Protein 6.2 L Albumin 3.4 L Urine Protein Urine Glucose (UA) Urine Ketones 01/25/18 01/25/18 01/25/18 08:31 10:37 12:34 WBC Neutrophils # APTT Sodium Carbon Dioxide BUN Glucose POC Glucose (mg/dL) 206 H 328 H 217 H Hemoglobin A1c Total Bilirubin Total Protein Albumin Urine Protein Urine Glucose (UA) Urine Ketones - Diagnostic Findings Chest x-ray: image reviewed (Chest x-rays labs and medications are reviewed) Assessment and Plan Assessment: Assessment COPD 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 We'll review his medications labs and x-rays. Chest x-ray did not show dianne infiltrate. The patient should be on the usual medications including DuoNeb 4 times a day and when necessary Pulmicort 1 mg twice a day and Perforomist twice a day. Also, the patient should be on systemic corticosteroids and antibiotics. Additional recommendations and suggestions are forthcoming. We anticipate doing a bronchoscopy on Wednesday. Time with Patient: Greater than 30
[2018-01-25] MEDS: LEVOFLOXACIN 750MG-D5W PMX 750 MG in DEXTROSE/WATER 1 150ML.BAG IVPB SCH (13:19)
[2018-01-25] MEDS: INSULIN REGULAR 100 UNIT in SODIUM CHLORIDE 0.9% 100 ML IV SCH (13:27)
[2018-01-25 14:42] LABS: Glucose,Whole Blood 272 mg/dL (75-99)
[2018-01-25] MEDS ORDERED: INSULIN REGULAR 100 UNIT in SODIUM CHLORIDE 0.9% 100 ML IV SCH (15:30)
[2018-01-25 16:40] LABS: Glucose,Whole Blood 309 mg/dL (75-99)
[2018-01-25 18:38] LABS: Glucose,Whole Blood 290 mg/dL (75-99)
[2018-01-25] MEDS: FORMOTEROL FUMARATE 20 MCG/2 ML NEBU INHALATION SCH (20:37)
[2018-01-25] MEDS: BUDESONIDE 1 MG/2 ML NEBU INHALATION SCH (20:37)
[2018-01-25 20:52] LABS: Glucose,Whole Blood 266 mg/dL (75-99)
[2018-01-25] MEDS: ZOLPIDEM 5 MG TAB PO SCH (21:29)
[2018-01-25 22:50] LABS: Glucose,Whole Blood 225 mg/dL (75-99)
[2018-01-26 00:41] LABS: Glucose,Whole Blood 222 mg/dL (75-99)
[2018-01-26 02:53] LABS: Glucose,Whole Blood 226 mg/dL (75-99)
[2018-01-26] MEDS: methylPREDNISolone SOD SUCCI 125 MG/2 ML VIAL IV SCH ×4 (05:09→22:58)
[2018-01-26 05:15] LABS: Glucose,Whole Blood 187 mg/dL (75-99)
[2018-01-26] MEDS: LEVOTHYROXINE 112 MCG TAB PO SCH (06:44)
[2018-01-26 06:48] LABS: Glucose,Whole Blood 205 mg/dL (75-99)
[2018-01-26] MEDS: IPRATROPIUM-ALBUTEROL 3 ML NEB INHALATION SCH ×4 (07:35→20:13)
[2018-01-26] MEDS: BUDESONIDE 1 MG/2 ML NEBU INHALATION SCH ×2 (07:35→20:13)
[2018-01-26] MEDS: FORMOTEROL FUMARATE 20 MCG/2 ML NEBU INHALATION SCH ×2 (07:35→20:13)
[2018-01-26] MEDS: HEPARIN SODIUM,PORCINE 5,000 UNIT/ML 1 ML VIAL SQ SCH ×3 (08:08→22:59)
[2018-01-26] MEDS: VARENICLINE 1 MG TAB PO SCH ×2 (08:08→21:11)
[2018-01-26] MEDS: FUROSEMIDE 20 MG TAB PO SCH (08:08)
[2018-01-26] MEDS: PANTOPRAZOLE 40 MG TABLET PO SCH (08:09)
[2018-01-26] MEDS: INSULIN ASPART 100 UNIT/ML 1 ML 10 ML VIAL SQ SCH ×3 (08:09→17:49)
[2018-01-26] MEDS: LOSARTAN 50 MG TAB PO SCH (08:09)
[2018-01-26] MEDS: ASPIRIN 81 MG PO SCH (08:09)
[2018-01-26] MEDS: ATORVASTATIN 80 MG TAB PO SCH (08:09)
[2018-01-26 09:06] LABS: Glucose,Whole Blood 268 mg/dL (75-99)
[2018-01-26 11:05] LABS: Glucose,Whole Blood 351 mg/dL (75-99)
--- NOTE | 2018-01-26 12:23 | P.PN ---
Subjective Progress Note Date: 01/26/18 63-year-old male who presented to the emergency room with a chief complaint of shortness of breath. The patient states he originally went to urgent care and was told he possibly was having a COPD exacerbation and was referred to the emergency room. Patient admits to sputum production. Admits to feeling feverish. Temperature when he presented to the emergency room was 100.8. Patient denies chest pain or pressure. Denies palpitations. Denies pain or discomfort. Denies nausea or vomiting. The patient states he was exposed to someone with influenza approximately one week ago. Testing for influenza was negative. The patient has a history of COPD, diabetes mellitus type 2, hyperlipidemia, hypertension, and hypothyroidism. He also has a history of a hemorrhagic CVA that required surgical evacuation at [facility]. He was also diagnosed with shingles approximately 6 months ago. Patient is a history of stent placement. He is a former cigarette smoker. Chest x-ray: Findings suggestive of underlying COPD and chronic left hemidiaphragm elevation/left basilar atelectasis. No acute cardiopulmonary process. Laboratory data: WBC 14.8. Hemoglobin 15.9. Platelet count 232. Sodium 136. Potassium 4.0. B UN 18. Creatinine 0.79. Glucose 271. Lactic acid 1.5. Urinalysis reveals: Trace proteinuria, 4+ glucose, 1+ ketones The patient was admitted to the hospital under the care of Dr. Galeana. Consultations were placed to pulmonary. His blood sugars were significantly elevated last night with readings over 600. He was started on insulin drip. 01/26/2018 Patient examined at the bedside on rounds with Dr. Galeana. Patient remains on an insulin drip as his blood sugars have been ranging between 200 and 300. Patient remains on Solu-Medrol: 60 mg IV every 6 hours. Patient states he does not feel short of breath at rest but he reports dyspnea with minimal exertion. He remains on 2 L nasal cannula with oxygen saturations greater then 92%. Patient is asking about obtaining home oxygen. Explained to patient we will evaluate for home oxygen closer to the time of discharge. The patient is scheduled for bronchoscopy with Dr. Lee on Wednesday. Objective - Vital Signs Vital signs: Vital Signs Temp 97 F L 01/26/18 07:00 Pulse 90 01/26/18 11:29 Resp 16 01/26/18 11:29 BP 126/73 01/26/18 07:00 Pulse Ox 96 01/26/18 07:35 Intake & Output 01/25/18 01/26/18 01/26/18 18:59 06:59 18:59 Intake Total 46.909 647.717 16.567 Balance 46.909 647.717 16.567 Weight 75 kg Intake: Intake, IV Titration 46.909 47.717 16.567 Amount Insulin Regular 100 unit 46.909 47.717 16.567 In Sodium Chloride 0.9% 100 ml @ Titrate IV .Q0M [facility] Rx#:[id number] Oral 600 Other: # Voids 1 1 - Exam GENERAL: This is a 63-year-old male in no apparent distress at the time of examination. Pleasant and cooperative. HEENT: Head is atraumatic, normocephalic. Pupils are equal, round, and reactive to light. Sclerae anicteric. Conjunctivae are clear. Mucus membranes of the mouth are moist. Neck is supple. RESPIRATORY: Decreased air exchange. Expiratory wheezing noted. Scattered rhonchi. Frequent coughing noted during examination. No use of accessory muscles. Patient maintaining oxygen saturation greater than 92% on nasal cannula. No chest wall tenderness is noted on palpation or with deep breathing. CARDIOVASCULAR: Regular rate and rhythm. S1 and S2 noted. No JVD noted. No S3 or S4 noted. GASTROINTESTINAL: No distention noted. Abdomen soft and round. Normal active bowel sounds auscultated x 4 quadrants. No pain or tenderness noted upon palpation. INTEGUMENTARY: No cyanosis. No jaundice. No rashes noted. No cellulitis noted. EXTREMITIES: 2+ peripheral pulses. No evidence of peripheral edema. No calf tenderness noted. NEUROLOGIC: Cranial nerves II-XII intact. PSYCHIATRIC: Awake, alert, and oriented X 3. Appropriate affect. Intact judgement and insight. - Labs CBC & Chem 7: 01/25/18 07:35 01/25/18 07:35 Labs: Abnormal Lab Results - Last 24 Hours (Table) 01/25/18 01/25/18 01/25/18 Range/Units 12:34 14:39 16:33 POC Glucose (mg/dL) 217 H 272 H 309 H (75-99) mg/dL 01/25/18 01/25/18 01/25/18 Range/Units 18:36 20:39 22:48 POC Glucose (mg/dL) 290 H 266 H 225 H (75-99) mg/dL 01/26/18 01/26/18 01/26/18 Range/Units 00:36 02:50 05:07 POC Glucose (mg/dL) 222 H 226 H 187 H (75-99) mg/dL 01/26/18 01/26/18 01/26/18 Range/Units 06:46 09:01 11:02 POC Glucose (mg/dL) 205 H 268 H 351 H (75-99) mg/dL Microbiology - Last 24 Hours (Table) 01/25/18 16:30 Gram Stain - Preliminary Sputum 01/24/18 17:00 Urine Culture - Final Urine,Clean Catch 01/24/18 13:08 Blood Culture - Preliminary Blood No Growth after 24 hours Assessment and Plan Plan: ASSESSMENT: Acute exacerbation of chronic obstructive pulmonary disease complicated by purulent tracheobronchitis Fever, tachycardia, and leukocytosis, present on admission, meets SIRS criteria Diabetes mellitus, type II, hemoglobin A1c 12.9% Hyperglycemia, secondary to IV steroids and uncontrolled diabetes mellitus History of hemorrhagic CVA Essential hypertension Coronary artery disease with previous stent placement Hyperlipidemia Hypothyroidism History of nicotine dependence, in remission, patient states he quit smoking 9 months ago after smoking 1 pack per day for 30 years PLAN: Pulmonary on consult. Appreciate recommendations and input Patient tentatively scheduled for bronchoscopy on Wednesday Continue IV steroids: 60 mg Q6 hours. Wean per pulmonary Continue empiric antibiotics in the form of Levaquin 750 mg daily 24 hours Continue insulin drip. 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 Signing provider agrees with the documented findings, assessment, and plan of care.
[2018-01-26 13:06] LABS: Glucose,Whole Blood 272 mg/dL (75-99)
[2018-01-26] MEDS: INSULIN REGULAR 100 UNIT in SODIUM CHLORIDE 0.9% 100 ML IV SCH (13:10)
--- NOTE | 2018-01-26 14:26 | P.PN ---
Subjective Progress Note Date: 01/26/18 Principal diagnosis: Acute COPD exacerbation complicated by purulent tracheobronchitis This is a 63-year-old male who presents to the emergency department on January 24 with complaints of increasing shortness of breath. He was seen by me in the office recently treated with Depo-Medrol and extended prednisone burst and taper and some antibiotics. Despite that, he did not improve and that's why he ended up coming to the emergency room. In addition, between the time he saw me last in the ER visit, he apparently went to urgent care. He was found have a slight temperature elevation. He apparently was exposed to influenza was concern. His complaints include chest tightness wheezing coughing chest congestion and phlegm production. Chest x-ray was negative for infiltrate. It just showed COPD. I was concerned the last time I saw him that he might not get better and told to come to the emergency room and they did not. In fact, I think he would benefit from bronchoscopy BAL and airway examination. On 01/26/2018 seen in follow-up. He remains wheezy and congested. At times he is able to bring up some yellow phlegm, but for the most part his cough is nonproductive. Remains on 2 L per nasal cannula, with O2 sat at 92-96%. He is afebrile. Hemodynamically stable. He remains on a combination of Pulmicort, Perforomist, DuoNeb, Levaquin, and IV steroids. We'll proceed with bronchoscopy with BAL by Dr. Lee on Wednesday Objective - Vital Signs Vital signs: Vital Signs Temp 97 F L 01/26/18 07:00 Pulse 90 01/26/18 11:29 Resp 16 01/26/18 11:29 BP 126/73 01/26/18 07:00 Pulse Ox 96 01/26/18 07:35 Intake & Output 01/25/18 01/26/18 01/26/18 18:59 06:59 18:59 Intake Total 46.909 647.717 26.766 Balance 46.909 647.717 26.766 Weight 75 kg Intake: Intake, IV Titration 46.909 47.717 26.766 Amount Insulin Regular 100 unit 46.909 47.717 26.766 In Sodium Chloride 0.9% 100 ml @ Titrate IV .Q0M [facility] Rx#:[id number] Oral 600 Other: # Voids 1 1 - Exam GENERAL EXAM: Alert, pleasant, 63-year-old white male comfortable in no apparent distress. HEAD: Normocephalic/atraumatic. EYES: Normal reaction of pupils, equal size. Conjunctiva pink, sclera white. NOSE: Clear with pink turbinates. THROAT: No erythema or exudates. NECK: No masses, no JVD, no thyroid enlargement, no adenopathy. CHEST: No chest wall deformity. Symmetrical expansion. LUNGS: Equal air entry with diffuse wheezes and rhonchi CVS: Regular rate and rhythm, normal S1 and S2, no gallops, no murmurs, no rubs ABDOMEN: Soft, nontender. No hepatosplenomegaly, normal bowel sounds, no guarding or rigidity. EXTREMITIES: No clubbing, no edema, no cyanosis, 2+ pulses and upper and lower extremities. MUSCULOSKELETAL: Muscle strength and tone normal. SPINE: No scoliosis or deformity SKIN: No rashes CENTRAL NERVOUS SYSTEM: Alert and oriented -3. No focal deficits, tone is normal in all 4 extremities. PSYCHIATRIC: Alert and oriented -3. Appropriate affect. Intact judgment and insight. - Labs CBC & Chem 7: 01/25/18 07:35 01/25/18 07:35 Labs: Abnormal Lab Results - Last 24 Hours (Table) 01/25/18 01/25/18 01/25/18 Range/Units 14:39 16:33 18:36 POC Glucose (mg/dL) 272 H 309 H 290 H (75-99) mg/dL 01/25/18 01/25/18 01/26/18 Range/Units 20:39 22:48 00:36 POC Glucose (mg/dL) 266 H 225 H 222 H (75-99) mg/dL 01/26/18 01/26/18 01/26/18 Range/Units 02:50 05:07 06:46 POC Glucose (mg/dL) 226 H 187 H 205 H (75-99) mg/dL 01/26/18 01/26/18 01/26/18 Range/Units 09:01 11:02 13:04 POC Glucose (mg/dL) 268 H 351 H 272 H (75-99) mg/dL Microbiology - Last 24 Hours (Table) 01/25/18 16:30 Gram Stain - Preliminary Sputum 01/24/18 17:00 Urine Culture - Final Urine,Clean Catch 01/24/18 13:08 Blood Culture - Preliminary Blood No Growth after 24 hours Assessment and Plan Plan: Assessment: COPD exacerbation complicated by purulent tracheobronchitis Diabetes mellitus Hypothyroidism Essential hypertension Hyperlipidemia History of CVA History of shingles Chronic hypoxemia Plan: Continue current medical treatment, continue IV steroids, Levaquin, Pulmicort, Perforomist, DuoNeb. We'll proceed with bronchoscopy with BAL on Wednesday at 11: [address] Lee. I performed a history & physical examination of the patient and discussed their management with my nurse practitioner, Heike Corley. I reviewed the nurse practitioner's note and agree with the documented findings and plan of care. Lung sounds are positive for diffuse wheezes throughout the lung sanchez. The findings and the impression was discussed with the patient. I attest to the documentation by the nurse practitioner. Time with Patient: Less than 30
[2018-01-26 15:22] LABS: Glucose,Whole Blood 273 mg/dL (75-99)
[2018-01-26] MEDS: LEVOFLOXACIN 750MG-D5W PMX 750 MG in DEXTROSE/WATER 1 150ML.BAG IVPB SCH (15:22)
[2018-01-26 17:15] LABS: Glucose,Whole Blood 218 mg/dL (75-99)
[2018-01-26 19:12] LABS: Glucose,Whole Blood 171 mg/dL (75-99)
[2018-01-26 20:49] LABS: Glucose,Whole Blood 223 mg/dL (75-99)
[2018-01-26] MEDS: ZOLPIDEM 5 MG TAB PO SCH (21:11)
[2018-01-26 23:43] LABS: Glucose,Whole Blood 258 mg/dL (75-99)
[2018-01-27 00:59] LABS: Glucose,Whole Blood 211 mg/dL (75-99)
[2018-01-27 03:13] LABS: Glucose,Whole Blood 193 mg/dL (75-99)
[2018-01-27 05:01] LABS: Glucose,Whole Blood 146 mg/dL (75-99)
[2018-01-27] MEDS: LEVOTHYROXINE 112 MCG TAB PO SCH (06:22)
[2018-01-27] MEDS: methylPREDNISolone SOD SUCCI 125 MG/2 ML VIAL IV SCH ×3 (06:23→17:51)
[2018-01-27] MEDS: IPRATROPIUM-ALBUTEROL 3 ML NEB INHALATION SCH ×4 (07:09→19:52)
[2018-01-27] MEDS: BUDESONIDE 1 MG/2 ML NEBU INHALATION SCH ×2 (07:10→19:52)
[2018-01-27] MEDS: FORMOTEROL FUMARATE 20 MCG/2 ML NEBU INHALATION SCH ×2 (07:10→19:52)
[2018-01-27 07:34] LABS: Glucose,Whole Blood 123 mg/dL (75-99)
[2018-01-27 08:19] LABS: Glucose,Whole Blood 140 mg/dL (75-99)
[2018-01-27] MEDS: INSULIN ASPART 100 UNIT/ML 1 ML 10 ML VIAL SQ SCH ×6 (08:22→21:19)
[2018-01-27] MEDS: LOSARTAN 50 MG TAB PO SCH (08:23)
[2018-01-27] MEDS: ASPIRIN 81 MG PO SCH (08:23)
[2018-01-27] MEDS: PANTOPRAZOLE 40 MG TABLET PO SCH (08:23)
[2018-01-27] MEDS: HEPARIN SODIUM,PORCINE 5,000 UNIT/ML 1 ML VIAL SQ SCH ×3 (08:23→23:57)
[2018-01-27] MEDS: FUROSEMIDE 20 MG TAB PO SCH (08:23)
[2018-01-27] MEDS: VARENICLINE 1 MG TAB PO SCH ×2 (08:23→21:18)
[2018-01-27] MEDS: ATORVASTATIN 80 MG TAB PO SCH (08:23)
[2018-01-27 10:05] LABS: Glucose,Whole Blood 237 mg/dL (75-99)
--- NOTE | 2018-01-27 10:51 | P.PN ---
Subjective Progress Note Date: 01/27/18 63-year-old male who presented to the emergency room with a chief complaint of shortness of breath. The patient states he originally went to urgent care and was told he possibly was having a COPD exacerbation and was referred to the emergency room. Patient admits to sputum production. Admits to feeling feverish. Temperature when he presented to the emergency room was 100.8. Patient denies chest pain or pressure. Denies palpitations. Denies pain or discomfort. Denies nausea or vomiting. The patient states he was exposed to someone with influenza approximately one week ago. Testing for influenza was negative. The patient has a history of COPD, diabetes mellitus type 2, hyperlipidemia, hypertension, and hypothyroidism. He also has a history of a hemorrhagic CVA that required surgical evacuation at [facility]. He was also diagnosed with shingles approximately 6 months ago. Patient is a history of stent placement. He is a former cigarette smoker. Chest x-ray: Findings suggestive of underlying COPD and chronic left hemidiaphragm elevation/left basilar atelectasis. No acute cardiopulmonary process. Laboratory data: WBC 14.8. Hemoglobin 15.9. Platelet count 232. Sodium 136. Potassium 4.0. B UN 18. Creatinine 0.79. Glucose 271. Lactic acid 1.5. Urinalysis reveals: Trace proteinuria, 4+ glucose, 1+ ketones The patient was admitted to the hospital under the care of Dr. Galeana. Consultations were placed to pulmonary. His blood sugars were significantly elevated last night with readings over 600. He was started on insulin drip. 01/26/2018 Patient examined at the bedside on rounds with Dr. Galeana. Patient remains on an insulin drip as his blood sugars have been ranging between 200 and 300. Patient remains on Solu-Medrol: 60 mg IV every 6 hours. Patient states he does not feel short of breath at rest but he reports dyspnea with minimal exertion. He remains on 2 L nasal cannula with oxygen saturations greater then 92%. Patient is asking about obtaining home oxygen. Explained to patient we will evaluate for home oxygen closer to the time of discharge. The patient is scheduled for bronchoscopy with Dr. Lee on Wednesday. 01/27/2018 Patient examined at the bedside on rounds with Dr. Galeana. Patient remains on Solu-Medrol: 60 mg IV every 6 hours. Patient remains on insulin drip. Blood sugars recently ranging from 123-211. Patient states he does not feel short of breath at rest but he reports dyspnea with minimal exertion. On 2 L NC with oxygen saturations greater than 92%. Blood pressure 133/83. Heart rate in the 90s. The patient is scheduled for bronchoscopy with Dr. Lee on Wednesday. Objective - Vital Signs Vital signs: Vital Signs Temp 97.6 F 01/27/18 07:00 Pulse 92 01/27/18 07:26 Resp 18 01/27/18 07:00 BP 133/83 01/27/18 07:00 Pulse Ox 92 L 01/27/18 07:00 Intake & Output 01/26/18 01/27/18 01/27/18 18:59 06:59 18:59 Intake Total 209.330 33.367 4 Balance 209.330 33.367 4 Intake: Intake, IV Titration 209.330 33.367 4 Amount Insulin Regular 100 unit 59.330 33.367 4 In Sodium Chloride 0.9% 100 ml @ Titrate IV .Q0M [facility] Rx#:[id number] Levofloxacin 750Mg-D5w 150 Pmx 750 mg In Dextrose/ Water 1 150ml.bag @ 100 mls/hr IVPB Q24H [facility] Rx#: [id number] Other: # Voids 1 - Exam GENERAL: This is a 63-year-old male in no apparent distress at the time of examination. Pleasant and cooperative. HEENT: Head is atraumatic, normocephalic. Pupils are equal, round, and reactive to light. Sclerae anicteric. Conjunctivae are clear. Mucus membranes of the mouth are moist. Neck is supple. RESPIRATORY: Decreased air exchange. Expiratory wheezing noted. Scattered rhonchi. Frequent coughing noted during examination. No use of accessory muscles. Patient maintaining oxygen saturation greater than 92% on nasal cannula. No chest wall tenderness is noted on palpation or with deep breathing. CARDIOVASCULAR: Regular rate and rhythm. S1 and S2 noted. No JVD noted. No S3 or S4 noted. GASTROINTESTINAL: No distention noted. Abdomen soft and round. Normal active bowel sounds auscultated x 4 quadrants. No pain or tenderness noted upon palpation. INTEGUMENTARY: No cyanosis. No jaundice. No rashes noted. No cellulitis noted. EXTREMITIES: 2+ peripheral pulses. No evidence of peripheral edema. No calf tenderness noted. NEUROLOGIC: Cranial nerves II-XII intact. PSYCHIATRIC: Awake, alert, and oriented X 3. Appropriate affect. Intact judgement and insight. - Labs CBC & Chem 7: 01/25/18 07:35 01/25/18 07:35 Labs: Abnormal Lab Results - Last 24 Hours (Table) 01/26/18 01/26/18 01/26/18 Range/Units 11:02 13:04 15:07 POC Glucose (mg/dL) 351 H 272 H 273 H (75-99) mg/dL 01/26/18 01/26/18 01/26/18 Range/Units 17:08 19:10 20:48 POC Glucose (mg/dL) 218 H 171 H 223 H (75-99) mg/dL 01/26/18 01/27/18 01/27/18 Range/Units 23:30 00:58 03:12 POC Glucose (mg/dL) 258 H 211 H 193 H (75-99) mg/dL 01/27/18 01/27/18 01/27/18 Range/Units 05:00 07:01 08:17 POC Glucose (mg/dL) 146 H 123 H 140 H (75-99) mg/dL Microbiology - Last 24 Hours (Table) 01/24/18 13:08 Blood Culture - Preliminary Blood No Growth after 48 hours 01/25/18 16:30 Gram Stain - Preliminary Sputum Assessment and Plan Plan: ASSESSMENT: Acute exacerbation of chronic obstructive pulmonary disease complicated by purulent tracheobronchitis Fever, tachycardia, and leukocytosis, present on admission, meets SIRS criteria , resolved Diabetes mellitus, type II, hemoglobin A1c 12.9% Hyperglycemia, secondary to IV steroids and uncontrolled diabetes mellitus History of hemorrhagic CVA Essential hypertension Coronary artery disease with previous stent placement Hyperlipidemia Hypothyroidism History of nicotine dependence, in remission, patient states he quit smoking 9 months ago after smoking 1 pack per day for 30 years PLAN: Pulmonary on consult. Appreciate recommendations and input Patient scheduled for bronchoscopy tomorrow Continue IV steroids: 60 mg Q6 hours. 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 first dose now Novolog sliding scale coverage Continue novolog 10 units TID with meals Home meds as appropriate Monitor labs GI prophylaxis: Protonix 40 mg PO Daily DVT prophylaxis: Heparin 5000 units subcu every 8 hours Monitor vital signs and address as appropriate Discharge planning: Patient to return home when stable Further recommendations pending patient's course Nurse practitioner note has been reviewed by physician. Signing provider agrees with the documented findings, assessment, and plan of care.
[2018-01-27] MEDS ORDERED: INSULIN DETEMIR 100 UNIT/ML 10 ML VIAL SQ ONE (11:00)
--- NOTE | 2018-01-27 11:06 | P.PN ---
Subjective Progress Note Date: 01/27/18 Principal diagnosis: Acute COPD exacerbation complicated by purulent tracheobronchitis This is a 63-year-old male who presents to the emergency department on January 24 with complaints of increasing shortness of breath. He was seen by me in the office recently treated with Depo-Medrol and extended prednisone burst and taper and some antibiotics. Despite that, he did not improve and that's why he ended up coming to the emergency room. In addition, between the time he saw me last in the ER visit, he apparently went to urgent care. He was found have a slight temperature elevation. He apparently was exposed to influenza was concern. His complaints include chest tightness wheezing coughing chest congestion and phlegm production. Chest x-ray was negative for infiltrate. It just showed COPD. I was concerned the last time I saw him that he might not get better and told to come to the emergency room and they did not. In fact, I think he would benefit from bronchoscopy BAL and airway examination. On 01/26/2018 seen in follow-up. He remains wheezy and congested. At times he is able to bring up some yellow phlegm, but for the most part his cough is nonproductive. Remains on 2 L per nasal cannula, with O2 sat at 92-96%. He is afebrile. Hemodynamically stable. He remains on a combination of Pulmicort, Perforomist, DuoNeb, Levaquin, and IV steroids. We'll proceed with bronchoscopy with BAL by Dr. Lee on Wednesday On 01/27/2018 patient seen in follow-up. He states his cough is a lot more productive today, with copious amounts of yellow sputum. Denies any fever or chills, remains bronchospastic and congested. He is wearing his oxygen intermittently, on 2 L per nasal cannula his O2 sat at 92%. He is afebrile. Blood and sputum culture are pending. Urine culture showed no growth. He continues on broad-spectrum antibiotics in the form of Levaquin, IV Solu-Medrol , Pulmicort, Perforomist, DuoNeb nebulized treatments. The plan is to proceed with bronchoscopy with BAL on Wednesday at 11:00. Objective - Vital Signs Vital signs: Vital Signs Temp 97.6 F 01/27/18 07:00 Pulse 92 01/27/18 07:26 Resp 18 01/27/18 07:00 BP 133/83 01/27/18 07:00 Pulse Ox 92 L 01/27/18 07:00 Intake & Output 01/26/18 01/27/18 01/27/18 18:59 06:59 18:59 Intake Total 209.330 33.367 5.75 Balance 209.330 33.367 5.75 Intake: Intake, IV Titration 209.330 33.367 5.75 Amount Insulin Regular 100 unit 59.330 33.367 5.75 In Sodium Chloride 0.9% 100 ml @ Titrate IV .Q0M [facility] Rx#:[id number] Levofloxacin 750Mg-D5w 150 Pmx 750 mg In Dextrose/ Water 1 150ml.bag @ 100 mls/hr IVPB Q24H [facility] Rx#: [id number] Other: # Voids 1 - Exam GENERAL EXAM: Alert, pleasant, 63-year-old white male comfortable in no apparent distress. HEAD: Normocephalic/atraumatic. EYES: Normal reaction of pupils, equal size. Conjunctiva pink, sclera white. NOSE: Clear with pink turbinates. THROAT: No erythema or exudates. NECK: No masses, no JVD, no thyroid enlargement, no adenopathy. CHEST: No chest wall deformity. Symmetrical expansion. LUNGS: Equal air entry with diffuse wheezes and rhonchi CVS: Regular rate and rhythm, normal S1 and S2, no gallops, no murmurs, no rubs ABDOMEN: Soft, nontender. No hepatosplenomegaly, normal bowel sounds, no guarding or rigidity. EXTREMITIES: No clubbing, no edema, no cyanosis, 2+ pulses and upper and lower extremities. MUSCULOSKELETAL: Muscle strength and tone normal. SPINE: No scoliosis or deformity SKIN: No rashes CENTRAL NERVOUS SYSTEM: Alert and oriented -3. No focal deficits, tone is normal in all 4 extremities. PSYCHIATRIC: Alert and oriented -3. Appropriate affect. Intact judgment and insight. - Labs CBC & Chem 7: 01/25/18 07:35 01/25/18 07:35 Labs: Abnormal Lab Results - Last 24 Hours (Table) 01/26/18 01/26/18 01/26/18 Range/Units 11:02 13:04 15:07 POC Glucose (mg/dL) 351 H 272 H 273 H (75-99) mg/dL 01/26/18 01/26/18 01/26/18 Range/Units 17:08 19:10 20:48 POC Glucose (mg/dL) 218 H 171 H 223 H (75-99) mg/dL 01/26/18 01/27/18 01/27/18 Range/Units 23:30 00:58 03:12 POC Glucose (mg/dL) 258 H 211 H 193 H (75-99) mg/dL 01/27/18 01/27/18 01/27/18 Range/Units 05:00 07:01 08:17 POC Glucose (mg/dL) 146 H 123 H 140 H (75-99) mg/dL 01/27/18 Range/Units 10:03 POC Glucose (mg/dL) 237 H (75-99) mg/dL Microbiology - Last 24 Hours (Table) 01/24/18 13:08 Blood Culture - Preliminary Blood No Growth after 48 hours 01/25/18 16:30 Gram Stain - Preliminary Sputum Assessment and Plan Plan: Assessment: #1. COPD exacerbation complicated by purulent tracheobronchitis #2. Diabetes mellitus #3. Hypothyroidism #4. Essential hypertension #5. Hyperlipidemia #6. History of CVA #7. History of shingles #8. Chronic hypoxemia Plan: Nothing by mouth after midnight, we'll proceed with bronchoscopy with BAL by Dr. Lee on 01/28/2018 at 11:30 in the morning. Otherwise continue with current plan of care, Levaquin, IV steroids, Pulmicort, Perforomist, DuoNeb. I performed a history & physical examination of the patient and discussed their management with my nurse practitioner, Heike Corley. I reviewed the nurse practitioner's note and agree with the documented findings and plan of care. Lung sounds are positive for diffuse wheezes throughout the lung sanchez. The findings and the impression was discussed with the patient. I attest to the documentation by the nurse practitioner. Time with Patient: Less than 30
[2018-01-27 12:11] LABS: Glucose,Whole Blood 186 mg/dL (75-99)
[2018-01-27] MEDS: LEVOFLOXACIN 750MG-D5W PMX 750 MG in DEXTROSE/WATER 1 150ML.BAG IVPB SCH (12:39)
[2018-01-27 17:14] LABS: Glucose,Whole Blood 206 mg/dL (75-99)
[2018-01-27 20:59] LABS: Glucose,Whole Blood 244 mg/dL (75-99)
[2018-01-27] MEDS: INSULIN DETEMIR 100 UNIT/ML 10 ML VIAL SQ SCH (21:19)
[2018-01-27] MEDS: ZOLPIDEM 5 MG TAB PO SCH (21:19)
[2018-01-28] MEDS: methylPREDNISolone SOD SUCCI 125 MG/2 ML VIAL IV SCH ×5 (00:01→23:08)
[2018-01-28 07:19] LABS: Glucose,Whole Blood 214 mg/dL (75-99)
[2018-01-28] MEDS: FORMOTEROL FUMARATE 20 MCG/2 ML NEBU INHALATION SCH ×2 (07:19→20:19)
[2018-01-28] MEDS: BUDESONIDE 1 MG/2 ML NEBU INHALATION SCH ×2 (07:19→20:19)
[2018-01-28] MEDS: IPRATROPIUM-ALBUTEROL 3 ML NEB INHALATION SCH ×4 (07:19→20:19)
[2018-01-28] MEDS: VARENICLINE 1 MG TAB PO SCH ×2 (07:38→20:36)
[2018-01-28] MEDS: INSULIN ASPART 100 UNIT/ML 1 ML 10 ML VIAL SQ SCH ×7 (07:38→20:51)
[2018-01-28] MEDS: FUROSEMIDE 20 MG TAB PO SCH (07:38)
[2018-01-28] MEDS: PANTOPRAZOLE 40 MG TABLET PO SCH (07:38)
[2018-01-28] MEDS: ATORVASTATIN 80 MG TAB PO SCH (07:38)
[2018-01-28] MEDS: LOSARTAN 50 MG TAB PO SCH (07:38)
[2018-01-28] MEDS: HEPARIN SODIUM,PORCINE 5,000 UNIT/ML 1 ML VIAL SQ SCH ×3 (07:38→23:08)
[2018-01-28] MEDS: ASPIRIN 81 MG PO SCH (07:38)
[2018-01-28] MEDS: INSULIN DETEMIR 100 UNIT/ML 10 ML VIAL SQ SCH ×2 (09:31→21:24)
--- NOTE | 2018-01-28 10:07 | P.PN ---
Subjective Progress Note Date: 01/28/18 63-year-old male who presented to the emergency room with a chief complaint of shortness of breath. The patient states he originally went to urgent care and was told he possibly was having a COPD exacerbation and was referred to the emergency room. Patient admits to sputum production. Admits to feeling feverish. Temperature when he presented to the emergency room was 100.8. Patient denies chest pain or pressure. Denies palpitations. Denies pain or discomfort. Denies nausea or vomiting. The patient states he was exposed to someone with influenza approximately one week ago. Testing for influenza was negative. The patient has a history of COPD, diabetes mellitus type 2, hyperlipidemia, hypertension, and hypothyroidism. He also has a history of a hemorrhagic CVA that required surgical evacuation at [facility]. He was also diagnosed with shingles approximately 6 months ago. Patient is a history of stent placement. He is a former cigarette smoker. Chest x-ray: Findings suggestive of underlying COPD and chronic left hemidiaphragm elevation/left basilar atelectasis. No acute cardiopulmonary process. Laboratory data: WBC 14.8. Hemoglobin 15.9. Platelet count 232. Sodium 136. Potassium 4.0. B UN 18. Creatinine 0.79. Glucose 271. Lactic acid 1.5. Urinalysis reveals: Trace proteinuria, 4+ glucose, 1+ ketones The patient was admitted to the hospital under the care of Dr. Galeana. Consultations were placed to pulmonary. His blood sugars were significantly elevated last night with readings over 600. He was started on insulin drip. 01/26/2018 Patient examined at the bedside on rounds with Dr. Galeana. Patient remains on an insulin drip as his blood sugars have been ranging between 200 and 300. Patient remains on Solu-Medrol: 60 mg IV every 6 hours. Patient states he does not feel short of breath at rest but he reports dyspnea with minimal exertion. He remains on 2 L nasal cannula with oxygen saturations greater then 92%. Patient is asking about obtaining home oxygen. Explained to patient we will evaluate for home oxygen closer to the time of discharge. The patient is scheduled for bronchoscopy with Dr. Lee on Wednesday. 01/27/2018 Patient examined at the bedside on rounds with Dr. Galeana. Patient remains on Solu-Medrol: 60 mg IV every 6 hours. Patient remains on insulin drip. Blood sugars recently ranging from 123-211. Patient states he does not feel short of breath at rest but he reports dyspnea with minimal exertion. On 2 L NC with oxygen saturations greater than 92%. Blood pressure 133/83. Heart rate in the 90s. The patient is scheduled for bronchoscopy with Dr. Lee on Wednesday. 01/28/2018 Patient examined at the bedside. Patient is scheduled for bronch with BAL today with Dr. Lee. Patient states his breathing does not feel much better today than yesterday. He states he is still SOB with exertion. He remains on 2L NC. Frequent coughing continues per patient. Blood glucose remains elevated with readings between 186-237. Denies nausea or vomiting. Denies chest pain or pressure. Denies pain or discomfort. Objective - Vital Signs Vital signs: Vital Signs Temp 96.4 F L 01/28/18 06:12 Pulse 86 01/28/18 07:38 Resp 16 01/28/18 06:12 BP 143/78 01/28/18 06:12 Pulse Ox 93 L 01/28/18 06:12 Intake & Output 01/27/18 01/28/18 01/28/18 18:59 06:59 18:59 Intake Total 5.75 Balance 5.75 Intake: Intake, IV Titration 5.75 Amount Insulin Regular 100 unit 5.75 In Sodium Chloride 0.9% 100 ml @ Titrate IV .Q0M [facility] Rx#:[id number] Other: Voiding Method Toilet Toilet # Voids 3 2 - Exam GENERAL: This is a 63-year-old male in no apparent distress at the time of examination. Pleasant and cooperative. HEENT: Head is atraumatic, normocephalic. Pupils are equal, round, and reactive to light. Sclerae anicteric. Conjunctivae are clear. Mucus membranes of the mouth are moist. Neck is supple. RESPIRATORY: Decreased air exchange. Expiratory wheezing noted. Scattered rhonchi. Frequent coughing noted during examination. No use of accessory muscles. Patient maintaining oxygen saturation greater than 92% on nasal cannula. No chest wall tenderness is noted on palpation or with deep breathing. CARDIOVASCULAR: Regular rate and rhythm. S1 and S2 noted. No JVD noted. No S3 or S4 noted. GASTROINTESTINAL: No distention noted. Abdomen soft and round. Normal active bowel sounds auscultated x 4 quadrants. No pain or tenderness noted upon palpation. INTEGUMENTARY: No cyanosis. No jaundice. No rashes noted. No cellulitis noted. EXTREMITIES: 2+ peripheral pulses. No evidence of peripheral edema. No calf tenderness noted. NEUROLOGIC: Cranial nerves II-XII intact. PSYCHIATRIC: Awake, alert, and oriented X 3. Appropriate affect. Intact judgement and insight. - Labs CBC & Chem 7: 01/25/18 07:35 01/25/18 07:35 Labs: Abnormal Lab Results - Last 24 Hours (Table) 01/27/18 01/27/18 01/27/18 Range/Units 10:03 11:59 17:12 POC Glucose (mg/dL) 237 H 186 H 206 H (75-99) mg/dL 01/27/18 01/28/18 Range/Units 20:56 07:11 POC Glucose (mg/dL) 244 H 214 H (75-99) mg/dL Microbiology - Last 24 Hours (Table) 01/24/18 13:08 Blood Culture - Preliminary Blood No Growth after 72 hours Assessment and Plan Plan: ASSESSMENT: Acute exacerbation of chronic obstructive pulmonary disease complicated by purulent tracheobronchitis Fever, tachycardia, and leukocytosis, present on admission, meets SIRS criteria , resolved Diabetes mellitus, type II, hemoglobin A1c 12.9% Hyperglycemia, secondary to IV steroids and uncontrolled diabetes mellitus History of hemorrhagic CVA Essential hypertension Coronary artery disease with previous stent placement Hyperlipidemia Hypothyroidism History of nicotine dependence, in remission, patient states he quit smoking 9 months ago after smoking 1 pack per day for 30 years PLAN: Pulmonary on consult. Appreciate recommendations and input Patient scheduled for bronchoscopy Continue IV steroids: 60 mg Q6 hours. 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 Signing provider agrees with the documented findings, assessment, and plan of care.
[2018-01-28] MEDS ORDERED: LACTATED RINGERS 1,000 ML IV ONE (10:50)
[2018-01-28] MEDS ORDERED: PROPOFOL 10 MG/ML 20 ML VIAL IV ONE (11:00)
[2018-01-28] MEDS ORDERED: LIDOCAINE 1% INJ 10MG/ML (20 ML MDV) ONE (11:00)
--- NOTE | 2018-01-28 11:24 | P.PN ---
Subjective Progress Note Date: 01/28/18 Principal diagnosis: Acute COPD exacerbation complicated by purulent tracheobronchitis This is a 63-year-old male who presents to the emergency department on January 24 with complaints of increasing shortness of breath. He was seen by me in the office recently treated with Depo-Medrol and extended prednisone burst and taper and some antibiotics. Despite that, he did not improve and that's why he ended up coming to the emergency room. In addition, between the time he saw me last in the ER visit, he apparently went to urgent care. He was found have a slight temperature elevation. He apparently was exposed to influenza was concern. His complaints include chest tightness wheezing coughing chest congestion and phlegm production. Chest x-ray was negative for infiltrate. It just showed COPD. I was concerned the last time I saw him that he might not get better and told to come to the emergency room and they did not. In fact, I think he would benefit from bronchoscopy BAL and airway examination. On 01/26/2018 seen in follow-up. He remains wheezy and congested. At times he is able to bring up some yellow phlegm, but for the most part his cough is nonproductive. Remains on 2 L per nasal cannula, with O2 sat at 92-96%. He is afebrile. Hemodynamically stable. He remains on a combination of Pulmicort, Perforomist, DuoNeb, Levaquin, and IV steroids. We'll proceed with bronchoscopy with BAL by Dr. Lee on Wednesday On 01/27/2018 patient seen in follow-up. He states his cough is a lot more productive today, with copious amounts of yellow sputum. Denies any fever or chills, remains bronchospastic and congested. He is wearing his oxygen intermittently, on 2 L per nasal cannula his O2 sat at 92%. He is afebrile. Blood and sputum culture are pending. Urine culture showed no growth. He continues on broad-spectrum antibiotics in the form of Levaquin, IV Solu-Medrol , Pulmicort, Perforomist, DuoNeb nebulized treatments. The plan is to proceed with bronchoscopy with BAL on Wednesday at 11:00. On 01/28/2018 patient seen in follow-up. Still bringing up large amount of yellow sputum, still feels congested, and wheezy. Continues on 2 L per nasal cannula with O2 sat at 93%. Afebrile, lung sounds are positive for diffuse wheezes, and rhonchi. Not much change since admission. We'll proceed with bronchoscopy today at 11 AM. Objective - Vital Signs Vital signs: Vital Signs Temp 96.4 F L 01/28/18 06:12 Pulse 86 01/28/18 07:38 Resp 16 01/28/18 06:12 BP 143/78 01/28/18 06:12 Pulse Ox 93 L 01/28/18 06:12 Intake & Output 01/27/18 01/28/18 01/28/18 18:59 06:59 18:59 Intake Total 5.75 Balance 5.75 Intake: Intake, IV Titration 5.75 Amount Insulin Regular 100 unit 5.75 In Sodium Chloride 0.9% 100 ml @ Titrate IV .Q0M [facility] Rx#:[id number] Other: Voiding Method Toilet Toilet # Voids 3 2 - Exam GENERAL EXAM: Alert, pleasant, 63-year-old white male comfortable in no apparent distress. HEAD: Normocephalic/atraumatic. EYES: Normal reaction of pupils, equal size. Conjunctiva pink, sclera white. NOSE: Clear with pink turbinates. THROAT: No erythema or exudates. NECK: No masses, no JVD, no thyroid enlargement, no adenopathy. CHEST: No chest wall deformity. Symmetrical expansion. LUNGS: Equal air entry with diffuse wheezes and rhonchi CVS: Regular rate and rhythm, normal S1 and S2, no gallops, no murmurs, no rubs ABDOMEN: Soft, nontender. No hepatosplenomegaly, normal bowel sounds, no guarding or rigidity. EXTREMITIES: No clubbing, no edema, no cyanosis, 2+ pulses and upper and lower extremities. MUSCULOSKELETAL: Muscle strength and tone normal. SPINE: No scoliosis or deformity SKIN: No rashes CENTRAL NERVOUS SYSTEM: Alert and oriented -3. No focal deficits, tone is normal in all 4 extremities. PSYCHIATRIC: Alert and oriented -3. Appropriate affect. Intact judgment and insight. - Labs CBC & Chem 7: 01/25/18 07:35 01/25/18 07:35 Labs: Abnormal Lab Results - Last 24 Hours (Table) 01/27/18 01/27/18 01/27/18 Range/Units 11:59 17:12 20:56 POC Glucose (mg/dL) 186 H 206 H 244 H (75-99) mg/dL 01/28/18 Range/Units 07:11 POC Glucose (mg/dL) 214 H (75-99) mg/dL Microbiology - Last 24 Hours (Table) 01/24/18 13:08 Blood Culture - Preliminary Blood No Growth after 72 hours Assessment and Plan Plan: Assessment: #1. COPD exacerbation complicated by purulent tracheobronchitis #2. Diabetes mellitus #3. Hypothyroidism #4. Essential hypertension #5. Hyperlipidemia #6. History of CVA #7. History of shingles #8. Chronic hypoxemia Plan: Continue current plan of care, patient is awaiting bronchoscopy with BAL today by Dr. Lee. I performed a history & physical examination of the patient and discussed their management with my nurse practitioner, Heike Corley. I reviewed the nurse practitioner's note and agree with the documented findings and plan of care. Lung sounds are positive for diffuse wheezes and rhonchi throughout the lung sanchez. The findings and the impression was discussed with the patient. I attest to the documentation by the nurse practitioner. Time with Patient: Less than 30
--- NOTE | 2018-01-28 11:50 | PCN ---
PROCEDURE NOTE PROCEDURE: Bronchoscopy, airway examination, therapeutic lavage, BAL right middle lobe. PREOPERATIVE DIAGNOSES: 1. Severe chronic obstructive pulmonary disease. 2. Tracheobronchomalacia. 3. Retained secretions. POSTOPERATIVE DIAGNOSES: 1. Severe chronic obstructive pulmonary disease. 2. Tracheobronchomalacia. 3. Retained secretions. The patient's procedure was done in room #2 [facility]. There was informed consent. There was universal timeout. HEEL SORTER provided unconscious sedation with general anesthesia. After the patient was adequately sedated and being fully monitored, the bronchoscope was inserted through the left nostril. It passed through the left nasopharynx into the oropharynx. The hypopharynx was identified. The hypopharyngeal structures including anterior commissure, true cords, false cords, arytenoids, piriform sinuses, right and left vallecula and epiglottis all appeared normal. After topicalization, the bronchoscope was then placed through the glottic opening into the trachea. There was a moderate degree of tracheomalacia. There was significant ballooning of the membranous trachea. There were thick secretions noted throughout the trachea. After topicalization, the right and left mainstem were evaluated. Right upper lobe and its 3 segments, right middle lobe in its 2 segments, right lower lobe and its 5 segments, left upper lobe proper and its 2 segments, lingula and its 2 segments, then left lower lobe and its 4 segments all have similar findings of diffuse moderate bronchitis. There was diffuse erythema and hyperemia of the airways. There were thick bubbly secretions noted throughout. They were yellow, green, saba in color. There was no dominant mass or tumor. The secretions were suctioned with some difficulty. On one occasion, we had to remove the bronchoscope with a mucus plug on the tip of it. Next, after secretions were cleared, the bronchoscope was wedged into the right middle lobe. BAL took place. Roughly 30 mL was retrieved. It will be sent to the laboratory for analysis. Subsequent to that, additional saline was used to cleanse the rest of the airways. The patient tolerated the procedure well. There was no immediate complication. The patient will be recovered. Additional recommendations and suggestions are forthcoming. MMODL / IJN: [id number] /
[2018-01-28 12:03] LABS: Glucose,Whole Blood 122 mg/dL (75-99)
[2018-01-28] MEDS: LEVOFLOXACIN 750 MG TAB PO SCH (13:00)
[2018-01-28 16:17] LABS: Appearance,BF Cloudy; Color,BF Red; Nucleated Cells, Body Fluid 500 /uL; RBC, Body Fluid 62800 /uL
[2018-01-28 16:26] LABS: Mononuclear WBC,Body Fluid 6 %; Polynuclear WBC,Body Fluid 94 %; Total Cells Counted,Body Fluid 100
[2018-01-28] MEDS: LACTATED RINGERS 1,000 ML IV SCH (16:27)
[2018-01-28] MEDS: ACETAMINOPHEN TAB 325 MG TAB PO PRN ×2 (16:28→20:52)
[2018-01-28 17:20] LABS: Glucose,Whole Blood 150 mg/dL (75-99)
[2018-01-28 20:48] LABS: Glucose,Whole Blood 83 mg/dL (75-99)
[2018-01-28] MEDS: ZOLPIDEM 5 MG TAB PO SCH (20:52)
[2018-01-28] MEDS ORDERED: INSULIN DETEMIR 100 UNIT/ML 10 ML VIAL SQ SCH (21:00)
[2018-01-29 02:23] LABS: Glucose,Whole Blood 269 mg/dL (75-99)
[2018-01-29] MEDS: methylPREDNISolone SOD SUCCI 125 MG/2 ML VIAL IV SCH ×3 (06:27→17:47)
[2018-01-29] MEDS: LEVOTHYROXINE 112 MCG TAB PO SCH (06:28)
[2018-01-29] MEDS: VARENICLINE 1 MG TAB PO SCH ×2 (07:33→20:15)
[2018-01-29] MEDS: INSULIN ASPART 100 UNIT/ML 1 ML 10 ML VIAL SQ SCH ×7 (07:34→21:23)
[2018-01-29] MEDS: BUDESONIDE 1 MG/2 ML NEBU INHALATION SCH ×2 (07:34→20:40)
[2018-01-29] MEDS: FORMOTEROL FUMARATE 20 MCG/2 ML NEBU INHALATION SCH ×2 (07:34→20:40)
[2018-01-29] MEDS: FUROSEMIDE 20 MG TAB PO SCH (07:34)
[2018-01-29] MEDS: IPRATROPIUM-ALBUTEROL 3 ML NEB INHALATION SCH ×4 (07:34→20:40)
[2018-01-29] MEDS: LOSARTAN 50 MG TAB PO SCH (07:34)
[2018-01-29] MEDS: ASPIRIN 81 MG PO SCH (07:34)
[2018-01-29] MEDS: HEPARIN SODIUM,PORCINE 5,000 UNIT/ML 1 ML VIAL SQ SCH ×2 (07:34→14:50)
[2018-01-29] MEDS: ATORVASTATIN 80 MG TAB PO SCH (07:34)
[2018-01-29] MEDS: PANTOPRAZOLE 40 MG TABLET PO SCH (07:35)
[2018-01-29 07:48] LABS: Glucose,Whole Blood 223 mg/dL (75-99)
[2018-01-29] MEDS: INSULIN DETEMIR 100 UNIT/ML 10 ML VIAL SQ SCH ×2 (08:20→21:37)
--- NOTE | 2018-01-29 11:52 | P.PN ---
Subjective PER Oma Crowley N.P. 63-year-old male who presented to the emergency room with a chief complaint of shortness of breath. The patient states he originally went to urgent care and was told he possibly was having a COPD exacerbation and was referred to the emergency room. Patient admits to sputum production. Admits to feeling feverish. Temperature when he presented to the emergency room was 100.8. Patient denies chest pain or pressure. Denies palpitations. Denies pain or discomfort. Denies nausea or vomiting. The patient states he was exposed to someone with influenza approximately one week ago. Testing for influenza was negative. The patient has a history of COPD, diabetes mellitus type 2, hyperlipidemia, hypertension, and hypothyroidism. He also has a history of a hemorrhagic CVA that required surgical evacuation at [facility]. He was also diagnosed with shingles approximately 6 months ago. Patient is a history of stent placement. He is a former cigarette smoker. Chest x-ray: Findings suggestive of underlying COPD and chronic left hemidiaphragm elevation/left basilar atelectasis. No acute cardiopulmonary process. Laboratory data: WBC 14.8. Hemoglobin 15.9. Platelet count 232. Sodium 136. Potassium 4.0. B UN 18. Creatinine 0.79. Glucose 271. Lactic acid 1.5. Urinalysis reveals: Trace proteinuria, 4+ glucose, 1+ ketones The patient was admitted to the hospital under the care of Dr. Galeana. Consultations were placed to pulmonary. His blood sugars were significantly elevated last night with readings over 600. He was started on insulin drip. 01/26/2018 Patient examined at the bedside on rounds with Dr. Galeana. Patient remains on an insulin drip as his blood sugars have been ranging between 200 and 300. Patient remains on Solu-Medrol: 60 mg IV every 6 hours. Patient states he does not feel short of breath at rest but he reports dyspnea with minimal exertion. He remains on 2 L nasal cannula with oxygen saturations greater then 92%. Patient is asking about obtaining home oxygen. Explained to patient we will evaluate for home oxygen closer to the time of discharge. The patient is scheduled for bronchoscopy with Dr. Lee on Wednesday. 01/27/2018 Patient examined at the bedside on rounds with Dr. Galeana. Patient remains on Solu-Medrol: 60 mg IV every 6 hours. Patient remains on insulin drip. Blood sugars recently ranging from 123-211. Patient states he does not feel short of breath at rest but he reports dyspnea with minimal exertion. On 2 L NC with oxygen saturations greater than 92%. Blood pressure 133/83. Heart rate in the 90s. The patient is scheduled for bronchoscopy with Dr. Lee on Wednesday. 01/28/2018 Patient examined at the bedside. Patient is scheduled for bronch with BAL today with Dr. Lee. Patient states his breathing does not feel much better today than yesterday. He states he is still SOB with exertion. He remains on 2L NC. Frequent coughing continues per patient. Blood glucose remains elevated with readings between 186-237. Denies nausea or vomiting. Denies chest pain or pressure. Denies pain or discomfort. 01/01/2018: Patient status post Bronch. Fungal OMAR and cultures are pending. Bronchial washing found rare leukocytes were epithelial cells few gram-positive cocci and rare gram-negative bacilli. Patient is on Levaquin currently. Previous sputum culture positive for Streptococcus pneumoniae, moderate. He indicates he is feeling slightly better with less shortness of breath. He is tolerating his diet. He remains on Solu-Medrol 60 mg every 6 hours Objective - Vital Signs Vital signs: Vital Signs Temp 98.5 F 01/29/18 06:32 Pulse 112 H 01/29/18 11:04 Resp 20 01/29/18 06:32 BP 132/80 01/29/18 06:32 Pulse Ox 94 L 01/29/18 06:32 Intake & Output 01/28/18 01/29/18 01/29/18 18:59 06:59 18:59 Intake Total 100 850 Balance 100 850 Intake: IV 100 Oral 850 Other: # Voids 1 2 - Exam GENERAL: This is a 63-year-old male in no apparent distress at the time of examination. Pleasant and cooperative. Neck is supple. RESPIRATORY: Decreased air exchange. Expiratory wheezing noted. Scattered rhonchi. Frequent coughing noted during examination. No use of accessory muscles. Patient maintaining oxygen saturation greater than 92% on nasal cannula. No chest wall tenderness is noted on palpation or with deep breathing. CARDIOVASCULAR: Regular rate and rhythm. S1 and S2 noted. No JVD noted. No S3 or S4 noted. GASTROINTESTINAL: No distention noted. Abdomen soft and round. Normal active bowel sounds auscultated x 4 quadrants. No pain or tenderness noted upon palpation. INTEGUMENTARY: No cyanosis. No jaundice. No rashes noted. No cellulitis noted. EXTREMITIES: 2+ peripheral pulses. No evidence of peripheral edema. No calf tenderness noted. NEUROLOGIC: Cranial nerves II-XII intact. PSYCHIATRIC: Awake, alert, and oriented X 3. Appropriate affect. Intact judgement and insight. - Labs CBC & Chem 7: 01/25/18 07:35 01/25/18 07:35 Labs: Abnormal Lab Results - Last 24 Hours (Table) 01/28/18 01/28/18 01/29/18 Range/Units 11:57 17:16 02:18 POC Glucose (mg/dL) 122 H 150 H 269 H (75-99) mg/dL 01/29/18 Range/Units 07:20 POC Glucose (mg/dL) 223 H (75-99) mg/dL Microbiology - Last 24 Hours (Table) 01/25/18 16:30 Gram Stain - Preliminary Sputum Sputum Culture - Preliminary Streptococcus pneumoniae 01/28/18 12:00 Gram Stain - Preliminary Bronchial Washings - Right Bronchial Washings Culture - Preliminary 01/28/18 12:00 Acid Fast Bacilli Smear - Final Bronchial Washings - Right Acid Fast Bacilli Culture - Preliminary 01/28/18 12:00 Fungal Culture - Preliminary Bronchial Washings - Right 01/24/18 13:08 Blood Culture - Preliminary Blood No Growth after 96 hours Assessment and Plan Plan: ASSESSMENT: Acute exacerbation of chronic obstructive pulmonary disease complicated by purulent tracheobronchitis, status post bronchoscopy one day ago Fever, tachycardia, and leukocytosis, present on admission, meets SIRS criteria , resolved Diabetes mellitus, type II, hemoglobin A1c 12.9% Hyperglycemia, secondary to IV steroids and uncontrolled diabetes mellitus History of hemorrhagic CVA Essential hypertension Coronary artery disease with previous stent placement Hyperlipidemia Hypothyroidism History of nicotine dependence, in remission, patient states he quit smoking 9 months ago after smoking 1 pack per day for 30 years PLAN: Pulmonary on consult. Appreciate recommendations and input Continue IV steroids: 60 mg Q6 hours. 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
[2018-01-29 12:17] LABS: Glucose,Whole Blood 237 mg/dL (75-99)
--- NOTE | 2018-01-29 12:21 | P.PN ---
Subjective Progress Note Date: 01/29/18 Principal diagnosis: Acute exacerbation of chronic obstructive pulmonary disease complicated by purulent tracheobronchitis. This is a 63-year-old male who presents to the emergency department on January 24 with complaints of increasing shortness of breath. He was seen by me in the office recently treated with Depo-Medrol and extended prednisone burst and taper and some antibiotics. Despite that, he did not improve and that's why he ended up coming to the emergency room. In addition, between the time he saw me last in the ER visit, he apparently went to urgent care. He was found have a slight temperature elevation. He apparently was exposed to influenza was concern. His complaints include chest tightness wheezing coughing chest congestion and phlegm production. Chest x-ray was negative for infiltrate. It just showed COPD. I was concerned the last time I saw him that he might not get better and told to come to the emergency room and they did not. In fact, I think he would benefit from bronchoscopy BAL and airway examination. On 01/26/2018 seen in follow-up. He remains wheezy and congested. At times he is able to bring up some yellow phlegm, but for the most part his cough is nonproductive. Remains on 2 L per nasal cannula, with O2 sat at 92-96%. He is afebrile. Hemodynamically stable. He remains on a combination of Pulmicort, Perforomist, DuoNeb, Levaquin, and IV steroids. We'll proceed with bronchoscopy with BAL by Dr. Lee on Wednesday On 01/27/2018 patient seen in follow-up. He states his cough is a lot more productive today, with copious amounts of yellow sputum. Denies any fever or chills, remains bronchospastic and congested. He is wearing his oxygen intermittently, on 2 L per nasal cannula his O2 sat at 92%. He is afebrile. Blood and sputum culture are pending. Urine culture showed no growth. He continues on broad-spectrum antibiotics in the form of Levaquin, IV Solu-Medrol , Pulmicort, Perforomist, DuoNeb nebulized treatments. The plan is to proceed with bronchoscopy with BAL on Wednesday at 11:00. On 01/28/2018 patient seen in follow-up. Still bringing up large amount of yellow sputum, still feels congested, and wheezy. Continues on 2 L per nasal cannula with O2 sat at 93%. Afebrile, lung sounds are positive for diffuse wheezes, and rhonchi. Not much change since admission. We'll proceed with bronchoscopy today at 11 AM. The patient is seen again today 01/29/2018 in follow-up on the regular medical floor. He is awake and alert in no acute distress. He is doing better today as compared to yesterday. Still not quite back to his baseline. He did undergo bronchoscopy with BAL. Cultures are pending. Sputum culture from 01/25 was positive for Streptococcus pneumoniae. He remains on Levaquin. He has been afebrile. Hemodynamically stable. Maintaining good O2 saturations in the 90s on 3 L/m per nasal cannula. Objective - Vital Signs Vital signs: Vital Signs Temp 98.5 F 01/29/18 06:32 Pulse 112 H 01/29/18 11:04 Resp 20 01/29/18 06:32 BP 132/80 01/29/18 06:32 Pulse Ox 94 L 01/29/18 06:32 Intake & Output 01/28/18 01/29/18 01/29/18 18:59 06:59 18:59 Intake Total 100 850 Balance 100 850 Intake: IV 100 Oral 850 Other: # Voids 1 2 - Exam GENERAL EXAM: Alert, oriented 3, comfortable in no apparent distress. HEAD: Normocephalic. EYES: Normal reaction of pupils, equal size. NOSE: Clear with pink turbinates. THROAT: No erythema or exudates. NECK: No masses, no JVD. CHEST: No chest wall deformity. LUNGS: Equal air entry with bilateral end expiratory wheeze. Diminished. CVS: S1 and S2 normal with no audible murmur, regular rhythm. ABDOMEN: No hepatosplenomegaly, normal bowel sounds, no guarding or rigidity. SPINE: No scoliosis or deformity SKIN: No rashes CENTRAL NERVOUS SYSTEM: No focal deficits, tone is normal in all 4 extremities. EXTREMITIES: There is no peripheral edema. No clubbing, no cyanosis. Peripheral pulses are intact. - Labs CBC & Chem 7: 01/25/18 07:35 01/25/18 07:35 Labs: Abnormal Lab Results - Last 24 Hours (Table) 01/28/18 01/29/18 01/29/18 Range/Units 17:16 02:18 07:20 POC Glucose (mg/dL) 150 H 269 H 223 H (75-99) mg/dL Microbiology - Last 24 Hours (Table) 01/25/18 16:30 Gram Stain - Preliminary Sputum Sputum Culture - Preliminary Streptococcus pneumoniae 01/28/18 12:00 Gram Stain - Preliminary Bronchial Washings - Right Bronchial Washings Culture - Preliminary 01/28/18 12:00 Acid Fast Bacilli Smear - Final Bronchial Washings - Right Acid Fast Bacilli Culture - Preliminary 01/28/18 12:00 Fungal Culture - Preliminary Bronchial Washings - Right 01/24/18 13:08 Blood Culture - Preliminary Blood No Growth after 96 hours Assessment and Plan Assessment: Assessment: #1. COPD exacerbation complicated by purulent tracheobronchitis #2. Diabetes mellitus #3. Hypothyroidism #4. Essential hypertension #5. Hyperlipidemia #6. History of CVA #7. History of shingles #8. Chronic hypoxemia Plan: The patient was seen and evaluated by Dr. Lee. He is improved today as compared to yesterday. Still not quite back to his baseline. We'll continue with his current treatment plan. We will increase his activity as tolerated. We'll continue to follow. I, the cosigning physician, performed a history & physical examination of the patient. Lungs sounds have bilateral end expiratory wheeze. Diminished. Maintaining good O2 saturations in the 90s on 3 L/m per nasal cannula. I discussed the assessment and plan of care with my nurse practitioner, Senia Magallon. I attest to the above note as dictated by her.
[2018-01-29] MEDS: LEVOFLOXACIN 750 MG TAB PO SCH (14:50)
[2018-01-29 16:57] LABS: Glucose,Whole Blood 190 mg/dL (75-99)
[2018-01-29] MEDS: LACTATED RINGERS 1,000 ML IV SCH (17:02)
[2018-01-29] MEDS: ACETAMINOPHEN TAB 325 MG TAB PO PRN (20:14)
[2018-01-29] MEDS: ZOLPIDEM 5 MG TAB PO SCH (21:19)
[2018-01-29 21:22] LABS: Glucose,Whole Blood 118 mg/dL (75-99)
[2018-01-30] MEDS: HEPARIN SODIUM,PORCINE 5,000 UNIT/ML 1 ML VIAL SQ SCH ×4 (00:50→23:29)
[2018-01-30] MEDS: methylPREDNISolone SOD SUCCI 125 MG/2 ML VIAL IV SCH ×5 (00:50→23:29)
[2018-01-30] MEDS: LEVOTHYROXINE 112 MCG TAB PO SCH (05:39)
[2018-01-30] MEDS: FORMOTEROL FUMARATE 20 MCG/2 ML NEBU INHALATION SCH ×2 (07:17→21:14)
[2018-01-30] MEDS: IPRATROPIUM-ALBUTEROL 3 ML NEB INHALATION SCH ×4 (07:17→21:13)
[2018-01-30] MEDS: BUDESONIDE 1 MG/2 ML NEBU INHALATION SCH ×2 (07:17→21:14)
[2018-01-30 07:32] LABS: Glucose,Whole Blood 106 mg/dL (75-99)
[2018-01-30] MEDS: INSULIN ASPART 100 UNIT/ML 1 ML 10 ML VIAL SQ SCH ×7 (07:34→21:04)
[2018-01-30] MEDS: PANTOPRAZOLE 40 MG TABLET PO SCH (07:51)
[2018-01-30] MEDS: ATORVASTATIN 80 MG TAB PO SCH (07:52)
[2018-01-30] MEDS: FUROSEMIDE 20 MG TAB PO SCH (07:52)
[2018-01-30] MEDS: ASPIRIN 81 MG PO SCH (07:52)
[2018-01-30] MEDS: LOSARTAN 50 MG TAB PO SCH (07:53)
[2018-01-30] MEDS: VARENICLINE 1 MG TAB PO SCH ×2 (07:53→20:55)
[2018-01-30 08:53] LABS: Glucose,Whole Blood 259 mg/dL (75-99)
[2018-01-30] MEDS: INSULIN DETEMIR 100 UNIT/ML 10 ML VIAL SQ SCH ×2 (09:02→21:04)
[2018-01-30 09:06] LABS: HCT 29.2 % (39.0-53.0); MCH 31.1 pg (25.0-35.0); MCHC 33.9 g/dL (31.0-37.0); MCV 91.6 fL (80.0-100.0); Mean Platelet Volume 7.1; Platelet Count 270 k/uL (150-450); RBC 3.19 m/uL (4.30-5.90)
[2018-01-30 09:13] LABS: Anion Gap 7 mmol/L; Blood Urea Nitrogen 41 mg/dL (9-20); Calcium 8.2 mg/dL (8.4-10.2); Carbon Dioxide 29 mmol/L (22-30); Chloride 104 mmol/L (98-107); Glucose 123 mg/dL (74-99); Potassium 4.1 mmol/L (3.5-5.1); Sodium 140 mmol/L (137-145)
--- NOTE | 2018-01-30 09:18 | P.PN ---
Subjective Progress Note Date: 01/30/18 Principal diagnosis: Shortness of breath Progress note dated 01/30/2018 63-year-old male who was admitted with a diagnosis of COPD exacerbation. He had bronchoscopy with BAL therapeutic lavage on Wednesday. He is feeling a bit better. Certainly not back to baseline. Still complaining of coughing wheezing and shortness of breath. Is having a difficult time coughing up secretions. The patient has no fever or chills. He does cough up any phlegm, has a yellow-green color to it. He had thick secretions in his airways on bronchoscopy. No fever no chills. No nausea vomiting or diarrhea. Objective - Vital Signs Vital signs: Vital Signs Temp 97.2 F L 01/30/18 07:00 Pulse 100 01/30/18 07:38 Resp 20 01/30/18 07:00 BP 127/81 01/30/18 07:00 Pulse Ox 94 L 01/30/18 07:00 Intake & Output 01/29/18 01/30/18 01/30/18 18:59 06:59 18:59 Intake Total 200 500 Balance 200 500 Intake: Oral 200 500 Other: # Voids 3 2 # Bowel Movements 0 - Exam No acute distress, oriented 3. Nasal O2 in place. HEENT examination is grossly unremarkable. Mucous membranes are moist. No oral lesions. Neck supple. Full range of motion. No adenopathy thyromegaly or neck vein distention. Cardiovascular examination reveals regular rhythm rate. S1-S2 normal. No S3 or S4. No discernible murmur noted. Lungs reveal coarse inspiratory and expiratory rhonchi. Breath sounds are diminished. This prolongation on forced maneuver. The patient wheezes and coughs on forced maneuver. Abdomen soft bowel sounds are heard. No masses or tenderness. Extremities are intact. No cyanosis clubbing or edema. Skin is without rash or lesion. Neurologic examination is brief but nonfocal. - Labs CBC & Chem 7: 01/25/18 07:35 01/25/18 07:35 Labs: Abnormal Lab Results - Last 24 Hours (Table) 01/28/18 01/29/18 01/29/18 Range/Units 12:00 12:01 16:51 POC Glucose (mg/dL) 237 H 190 H (75-99) mg/dL Viral Test See Below H 01/29/18 01/30/18 01/30/18 Range/Units 21:21 07:29 08:51 POC Glucose (mg/dL) 118 H 106 H 259 H (75-99) mg/dL Viral Test Microbiology - Last 24 Hours (Table) 01/25/18 16:30 Gram Stain - Final Sputum Sputum Culture - Final Streptococcus pneumoniae Barbie albicans 01/24/18 13:08 Blood Culture - Preliminary Blood No Growth after 120 hours Assessment and Plan Assessment: Assessment COPD exacerbation complicated by purulent tracheobronchitis Status post bronchoscopy with BAL on January 28 Diabetes mellitus Hypothyroidism Essential hypertension Hyperlipidemia History of CVA History of shingles Chronic hypoxemia Plan: Plan dated 01/25/2018 The patient will get the usual medications. We'll review his medications labs and x-rays. Chest x-ray did not show dianne infiltrate. The patient should be on the usual medications including DuoNeb 4 times a day and when necessary Pulmicort 1 mg twice a day and Perforomist twice a day. Also, the patient should be on systemic corticosteroids and antibiotics. Additional recommendations and suggestions are forthcoming. We anticipate doing a bronchoscopy on Wednesday. Plan dated 01/30/2018 The patient continues on breathing treatments steroids and antibiotics. We'll review the results of the bronchoscopy and BAL. This seemed to help quite a bit. He is much less short of breath. He is coughing up secretions. He feels less congested in his chest. No fever or chills. No nausea vomiting or diarrhea. Medications are reviewed. Prognosis is guarded. I suspected another day or 2 in the hospital. Time with Patient: Less than 30
[2018-01-30 09:33] LABS: HGB 9.9 gm/dL (13.0-17.5)
[2018-01-30 10:13] LABS: Band Neutrophils % 4 %; Lymphocytes # (M) 1.26 k/uL (1.0-4.8); Metamyelocytes # (M) 1.05 k/uL (0); Metamyelocytes % 5 %; Monocytes # (M) 0.63 k/uL (0-1.0); Myelocytes # (M) 0.63 k/uL (0); Myelocytes % 3 %; Neutrophils % (M) 80 %; Nucleated Red Blood Cells 0 /100 WBC (0-0); Total Cells Counted 200
[2018-01-30 10:15] LABS: Poikilocytosis (M) Present
[2018-01-30 12:19] LABS: Glucose,Whole Blood 168 mg/dL (75-99)
[2018-01-30] MEDS: LEVOFLOXACIN 750 MG TAB PO SCH (12:51)
[2018-01-30] MEDS ORDERED: FLUCONAZOLE 100 MG TAB PO SCH (13:30)
--- NOTE | 2018-01-30 16:48 | P.PN ---
Subjective PER Oma Crowley N.P. 63-year-old male who presented to the emergency room with a chief complaint of shortness of breath. The patient states he originally went to urgent care and was told he possibly was having a COPD exacerbation and was referred to the emergency room. Patient admits to sputum production. Admits to feeling feverish. Temperature when he presented to the emergency room was 100.8. Patient denies chest pain or pressure. Denies palpitations. Denies pain or discomfort. Denies nausea or vomiting. The patient states he was exposed to someone with influenza approximately one week ago. Testing for influenza was negative. The patient has a history of COPD, diabetes mellitus type 2, hyperlipidemia, hypertension, and hypothyroidism. He also has a history of a hemorrhagic CVA that required surgical evacuation at [facility]. He was also diagnosed with shingles approximately 6 months ago. Patient is a history of stent placement. He is a former cigarette smoker. Chest x-ray: Findings suggestive of underlying COPD and chronic left hemidiaphragm elevation/left basilar atelectasis. No acute cardiopulmonary process. Laboratory data: WBC 14.8. Hemoglobin 15.9. Platelet count 232. Sodium 136. Potassium 4.0. B UN 18. Creatinine 0.79. Glucose 271. Lactic acid 1.5. Urinalysis reveals: Trace proteinuria, 4+ glucose, 1+ ketones The patient was admitted to the hospital under the care of Dr. Galeana. Consultations were placed to pulmonary. His blood sugars were significantly elevated last night with readings over 600. He was started on insulin drip. 01/26/2018 Patient examined at the bedside on rounds with Dr. Galeana. Patient remains on an insulin drip as his blood sugars have been ranging between 200 and 300. Patient remains on Solu-Medrol: 60 mg IV every 6 hours. Patient states he does not feel short of breath at rest but he reports dyspnea with minimal exertion. He remains on 2 L nasal cannula with oxygen saturations greater then 92%. Patient is asking about obtaining home oxygen. Explained to patient we will evaluate for home oxygen closer to the time of discharge. The patient is scheduled for bronchoscopy with Dr. Lee on Wednesday. 01/27/2018 Patient examined at the bedside on rounds with Dr. Galeana. Patient remains on Solu-Medrol: 60 mg IV every 6 hours. Patient remains on insulin drip. Blood sugars recently ranging from 123-211. Patient states he does not feel short of breath at rest but he reports dyspnea with minimal exertion. On 2 L NC with oxygen saturations greater than 92%. Blood pressure 133/83. Heart rate in the 90s. The patient is scheduled for bronchoscopy with Dr. Lee on Wednesday. 01/28/2018 Patient examined at the bedside. Patient is scheduled for bronch with BAL today with Dr. Lee. Patient states his breathing does not feel much better today than yesterday. He states he is still SOB with exertion. He remains on 2L NC. Frequent coughing continues per patient. Blood glucose remains elevated with readings between 186-237. Denies nausea or vomiting. Denies chest pain or pressure. Denies pain or discomfort. 01/29/2018: Patient status post Bronch. Fungal OMAR and cultures are pending. Bronchial washing found rare leukocytes were epithelial cells few gram-positive cocci and rare gram-negative bacilli. Patient is on Levaquin currently. Previous sputum culture positive for Streptococcus pneumoniae, moderate. He indicates he is feeling slightly better with less shortness of breath. He is tolerating his diet. He remains on Solu-Medrol 60 mg every 6 hours 01/30/2018: Patient feels slightly better than the previous day. He denies any chest pain, nausea, vomiting, diarrhea, constipation. He has continually have shortness of breath bases exertion. He states it is better than previous day. Her maintenance Solu-Medrol 60 mg every 6 hourly. Objective - Vital Signs Vital signs: Vital Signs Temp 97.1 F L 01/30/18 15:00 Pulse 112 H 01/30/18 15:29 Resp 16 01/30/18 15:00 BP 103/59 01/30/18 15:00 Pulse Ox 92 L 01/30/18 15:00 Intake & Output 01/29/18 01/30/18 01/30/18 18:59 06:59 18:59 Intake Total 200 500 Balance 200 500 Intake: Oral 200 500 Other: # Voids 3 2 1 # Bowel Movements 0 - Exam GENERAL: This is a 63-year-old male in no apparent distress at the time of examination. Pleasant and cooperative. Neck is supple. RESPIRATORY: Decreased air exchange. Expiratory wheezing noted. Scattered rhonchi. Frequent coughing noted during examination. No use of accessory muscles. Patient maintaining oxygen saturation greater than 92% on nasal cannula. No chest wall tenderness is noted on palpation or with deep breathing. CARDIOVASCULAR: Regular rate and rhythm. S1 and S2 noted. No JVD noted. No S3 or S4 noted. GASTROINTESTINAL: No distention noted. Abdomen soft and round. Normal active bowel sounds auscultated x 4 quadrants. No pain or tenderness noted upon palpation. INTEGUMENTARY: No cyanosis. No jaundice. No rashes noted. No cellulitis noted. EXTREMITIES: 2+ peripheral pulses. No evidence of peripheral edema. No calf tenderness noted. NEUROLOGIC: Cranial nerves II-XII intact. PSYCHIATRIC: Awake, alert, and oriented X 3. Appropriate affect. Intact judgement and insight. - Labs CBC & Chem 7: 01/30/18 08:08 01/30/18 08:08 Labs: Abnormal Lab Results - Last 24 Hours (Table) 01/29/18 01/29/18 01/30/18 Range/Units 16:51 21:21 07:29 WBC (3.8-10.6) k/uL RBC (4.30-5.90) m/uL Hgb (13.0-17.5) gm/dL Hct (39.0-53.0) % Neutrophils # (Manual) (1.3-7.7) k/uL Metamyelocytes # (Man) (0) k/uL Myelocytes # (Manual) (0) k/uL BUN (9-20) mg/dL Glucose (74-99) mg/dL POC Glucose (mg/dL) 190 H 118 H 106 H (75-99) mg/dL Calcium (8.4-10.2) mg/dL 01/30/18 01/30/18 01/30/18 Range/Units 08:08 08:08 08:51 WBC 21.0 H (3.8-10.6) k/uL RBC 3.19 L (4.30-5.90) m/uL Hgb 9.9 L D (13.0-17.5) gm/dL Hct 29.2 L (39.0-53.0) % Neutrophils # (Manual) 17.60 H (1.3-7.7) k/uL Metamyelocytes # (Man) 1.05 H (0) k/uL Myelocytes # (Manual) 0.63 H (0) k/uL BUN 41 H (9-20) mg/dL Glucose 123 H (74-99) mg/dL POC Glucose (mg/dL) 259 H (75-99) mg/dL Calcium 8.2 L (8.4-10.2) mg/dL 01/30/18 Range/Units 11:48 WBC (3.8-10.6) k/uL RBC (4.30-5.90) m/uL Hgb (13.0-17.5) gm/dL Hct (39.0-53.0) % Neutrophils # (Manual) (1.3-7.7) k/uL Metamyelocytes # (Man) (0) k/uL Myelocytes # (Manual) (0) k/uL BUN (9-20) mg/dL Glucose (74-99) mg/dL POC Glucose (mg/dL) 168 H (75-99) mg/dL Calcium (8.4-10.2) mg/dL Microbiology - Last 24 Hours (Table) 01/24/18 13:08 Blood Culture - Final Blood No Growth after 144 hours 01/28/18 12:00 Gram Stain - Preliminary Bronchial Washings - Right Bronchial Washings Culture - Preliminary Streptococcus pneumoniae 01/25/18 16:30 Gram Stain - Final Sputum Sputum Culture - Final Streptococcus pneumoniae Barbie albicans Assessment and Plan Plan: ASSESSMENT: Acute exacerbation of chronic obstructive pulmonary disease complicated by purulent tracheobronchitis, status post bronchoscopy 2 days ago Fever, tachycardia, and leukocytosis, present on admission, meets SIRS criteria , resolved Diabetes mellitus, type II, hemoglobin A1c 12.9% Hyperglycemia, secondary to IV steroids and uncontrolled diabetes mellitus History of hemorrhagic CVA Essential hypertension Coronary artery disease with previous stent placement Hyperlipidemia Hypothyroidism History of nicotine dependence, in remission, patient states he quit smoking 9 months ago after smoking 1 pack per day for 30 years PLAN: Pulmonary on consult. Appreciate recommendations and input Continue IV steroids: 60 mg Q6 hours. 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
[2018-01-30 17:28] LABS: Glucose,Whole Blood 298 mg/dL (75-99)
[2018-01-30] MEDS: ACETAMINOPHEN TAB 325 MG TAB PO PRN (20:55)
[2018-01-30] MEDS: ZOLPIDEM 5 MG TAB PO SCH (20:55)
[2018-01-30] MEDS: FLUCONAZOLE 100 MG TAB PO SCH (20:55)
[2018-01-30 20:57] LABS: Glucose,Whole Blood 287 mg/dL (75-99)
[2018-01-30] MEDS ORDERED: cefTRIAXone IN SWFI 1,000 MG/10 ML SYRINGE IVP SCH (21:00)
[2018-01-31] MEDS: LEVOTHYROXINE 112 MCG TAB PO SCH (06:10)
[2018-01-31] MEDS: methylPREDNISolone SOD SUCCI 125 MG/2 ML VIAL IV SCH ×4 (06:10→23:14)
[2018-01-31 07:00] LABS: Glucose,Whole Blood 126 mg/dL (75-99)
[2018-01-31] MEDS: INSULIN ASPART 100 UNIT/ML 1 ML 10 ML VIAL SQ SCH ×7 (07:50→21:14)
[2018-01-31] MEDS: PANTOPRAZOLE 40 MG TABLET PO SCH (07:58)
[2018-01-31] MEDS: HEPARIN SODIUM,PORCINE 5,000 UNIT/ML 1 ML VIAL SQ SCH ×3 (07:58→23:09)
[2018-01-31] MEDS: INSULIN DETEMIR 100 UNIT/ML 10 ML VIAL SQ SCH ×2 (07:59→21:14)
[2018-01-31] MEDS: FUROSEMIDE 20 MG TAB PO SCH (07:59)
[2018-01-31] MEDS: VARENICLINE 1 MG TAB PO SCH ×2 (08:00→20:16)
[2018-01-31] MEDS: ATORVASTATIN 80 MG TAB PO SCH (08:01)
[2018-01-31] MEDS: LOSARTAN 50 MG TAB PO SCH (08:01)
[2018-01-31] MEDS: FORMOTEROL FUMARATE 20 MCG/2 ML NEBU INHALATION SCH ×2 (08:06→20:18)
[2018-01-31] MEDS: BUDESONIDE 1 MG/2 ML NEBU INHALATION SCH ×2 (08:06→20:17)
[2018-01-31] MEDS: IPRATROPIUM-ALBUTEROL 3 ML NEB INHALATION SCH ×4 (08:06→20:18)
[2018-01-31 09:16] LABS: HCT 26.9 % (39.0-53.0); HGB 9.1 gm/dL (13.0-17.5); MCH 30.9 pg (25.0-35.0); MCHC 33.7 g/dL (31.0-37.0); MCV 91.6 fL (80.0-100.0); Mean Platelet Volume 7.1; Platelet Count 275 k/uL (150-450); RBC 2.93 m/uL (4.30-5.90); RDW 14.4 % (11.5-15.5); WBC 18.3 k/uL (3.8-10.6)
--- NOTE | 2018-01-31 09:16 | CDI ---
Last Revision, October 2017 Documentation Clarification Form Date: January 31, 2018 From: Trinity Smith RN Admit Date: 01/24/2018 2:20:00 PM Patient Name: Rizwana Roberts Visit Number: [id number] ATTENTION: The Clinical Documentation Specialists (CDI) and [facility] Coding Staff appreciate your assistance in clarifying documentation. Please respond to the clarification below the line at the bottom and electronically sign. The CDI & [facility] Coding staff will review the response and follow-up if needed. Please note: Queries are made part of the Legal Health Record. If you have any questions, please contact the author of this message via ITS. Dr. Lee Galeana, and Oma Crowley, SIRS is noted in the H&P and progress note 01/26 History/Risk Factors: copd, dm 2, hyperlipidemia, HTN, hypothyroidism, hemorrhagic CVA, shingles, stents , former smoker admitted for: acute exacerbation of COPD, fever, tachycardia, leukocytosis, meets SIR criteria Clinical Indicators: WBC on admission: 14.8 Lactic acid: 1.5 Blood cultures: no growth final report Vitals signs on admission: T 100.8, P 125, R 24, 143/80, 93% 2L Other Clinical Indicators: 01/28 Bronchial washings show streptococcus pneumoniae Sputum: streptococcus pneumoniae and sylvia albicans Treatment: Pulmonary Consult: Dr. Lee Antibiotics: PO Diflucan, IV Rocephin, PO Levaquin, IV Bolus: x1 Other: Bronchoscopy 01/28 In your professional opinion, please clarify if these findings signify one of the following conditions, whether the condition is POA, and cause, if known: Sepsis ruled in Sepsis ruled out SIRS, without underlying infectious process Severe Sepsis Other, please specify Unable to determine Present on Admission: Yes No Please continue to document in your progress notes, under the line below and/or in the discharge summary in order to capture severity of illness and risk of mortality. Include clinical findings that support your diagnosis. MTDD
[2018-01-31] MEDS: ASPIRIN 81 MG PO SCH (09:25)
[2018-01-31] MEDS: ACETAMINOPHEN TAB 325 MG TAB PO PRN (09:28)
--- NOTE | 2018-01-31 10:39 | P.PN ---
Subjective Progress Note Date: 01/31/18 63-year-old male who presented to the emergency room with a chief complaint of shortness of breath. The patient states he originally went to urgent care and was told he possibly was having a COPD exacerbation and was referred to the emergency room. Patient admits to sputum production. Admits to feeling feverish. Temperature when he presented to the emergency room was 100.8. Patient denies chest pain or pressure. Denies palpitations. Denies pain or discomfort. Denies nausea or vomiting. The patient states he was exposed to someone with influenza approximately one week ago. Testing for influenza was negative. The patient has a history of COPD, diabetes mellitus type 2, hyperlipidemia, hypertension, and hypothyroidism. He also has a history of a hemorrhagic CVA that required surgical evacuation at [facility]. He was also diagnosed with shingles approximately 6 months ago. Patient is a history of stent placement. He is a former cigarette smoker. Chest x-ray: Findings suggestive of underlying COPD and chronic left hemidiaphragm elevation/left basilar atelectasis. No acute cardiopulmonary process. Laboratory data: WBC 14.8. Hemoglobin 15.9. Platelet count 232. Sodium 136. Potassium 4.0. B UN 18. Creatinine 0.79. Glucose 271. Lactic acid 1.5. Urinalysis reveals: Trace proteinuria, 4+ glucose, 1+ ketones The patient was admitted to the hospital under the care of Dr. Galeana. Consultations were placed to pulmonary. His blood sugars were significantly elevated last night with readings over 600. He was started on insulin drip. 01/26/2018 Patient examined at the bedside on rounds with Dr. Galeana. Patient remains on an insulin drip as his blood sugars have been ranging between 200 and 300. Patient remains on Solu-Medrol: 60 mg IV every 6 hours. Patient states he does not feel short of breath at rest but he reports dyspnea with minimal exertion. He remains on 2 L nasal cannula with oxygen saturations greater then 92%. Patient is asking about obtaining home oxygen. Explained to patient we will evaluate for home oxygen closer to the time of discharge. The patient is scheduled for bronchoscopy with Dr. Lee on Wednesday. 01/27/2018 Patient examined at the bedside on rounds with Dr. Galeana. Patient remains on Solu-Medrol: 60 mg IV every 6 hours. Patient remains on insulin drip. Blood sugars recently ranging from 123-211. Patient states he does not feel short of breath at rest but he reports dyspnea with minimal exertion. On 2 L NC with oxygen saturations greater than 92%. Blood pressure 133/83. Heart rate in the 90s. The patient is scheduled for bronchoscopy with Dr. Lee on Wednesday. 01/28/2018 Patient examined at the bedside. Patient is scheduled for bronch with BAL today with Dr. Lee. Patient states his breathing does not feel much better today than yesterday. He states he is still SOB with exertion. He remains on 2L NC. Frequent coughing continues per patient. Blood glucose remains elevated with readings between 186-237. Denies nausea or vomiting. Denies chest pain or pressure. Denies pain or discomfort. 01/29/2018-Note per Dr. Galeana: Patient status post Bronch. Fungal OMAR and cultures are pending. Bronchial washing found rare leukocytes were epithelial cells few gram-positive cocci and rare gram-negative bacilli. Patient is on Levaquin currently. Previous sputum culture positive for Streptococcus pneumoniae, moderate. He indicates he is feeling slightly better with less shortness of breath. He is tolerating his diet. He remains on Solu-Medrol 60 mg every 6 hours 01/30/2018-Note per Dr. Galeana: Patient feels slightly better than the previous day. He denies any chest pain, nausea, vomiting, diarrhea, constipation. He has continually have shortness of breath bases exertion. He states it is better than previous day. Her maintenance Solu-Medrol 60 mg every 6 hourly. 01/31/2018 Patient seen and examined at the bedside. Patient states his breathing is still not back to baseline. He is coughing up a decent amount of yellow-green sputum. Patient continues to require oxygen. Currently wearing 3L NC with oxygen saturations greater than 92%. Patient denies chest pain or pressure. Patient is currently on Rocephin and fluconazole. He remains on IV steroids: Solu-Medrol 60 mg every 6 hours. Bronchial washings are positive for Streptococcus pneumoniae. Objective - Vital Signs Vital signs: Vital Signs Temp 97.1 F L 01/31/18 06:33 Pulse 93 01/31/18 08:27 Resp 16 01/31/18 06:33 BP 123/69 01/31/18 06:33 Pulse Ox 95 03/26/18 06:33 Intake & Output 01/30/18 01/31/18 01/31/18 18:59 06:59 18:59 Other: Voiding Method Toilet # Voids 1 1 - Exam GENERAL: This is a 63-year-old male in no apparent distress at the time of examination. Pleasant and cooperative. HEENT: Head is atraumatic, normocephalic. Pupils are equal, round, and reactive to light. Sclerae anicteric. Conjunctivae are clear. Mucus membranes of the mouth are moist. Neck is supple. RESPIRATORY: Decreased air exchange. Expiratory wheezing noted. Scattered rhonchi. Frequent coughing noted during examination. No use of accessory muscles. Patient maintaining oxygen saturation greater than 92% on nasal cannula. No chest wall tenderness is noted on palpation or with deep breathing. CARDIOVASCULAR: Regular rate and rhythm. S1 and S2 noted. No JVD noted. No S3 or S4 noted. GASTROINTESTINAL: No distention noted. Abdomen soft and round. Normal active bowel sounds auscultated x 4 quadrants. No pain or tenderness noted upon palpation. INTEGUMENTARY: No cyanosis. No jaundice. No rashes noted. No cellulitis noted. EXTREMITIES: 2+ peripheral pulses. No evidence of peripheral edema. No calf tenderness noted. NEUROLOGIC: Cranial nerves II-XII intact. PSYCHIATRIC: Awake, alert, and oriented X 3. Appropriate affect. Intact judgement and insight. - Labs CBC & Chem 7: 01/31/18 08:29 01/30/18 08:08 Labs: Abnormal Lab Results - Last 24 Hours (Table) 01/30/18 01/30/18 01/30/18 Range/Units 11:48 17:24 20:56 WBC (3.8-10.6) k/uL RBC (4.30-5.90) m/uL Hgb (13.0-17.5) gm/dL Hct (39.0-53.0) % POC Glucose (mg/dL) 168 H 298 H 287 H (75-99) mg/dL 01/31/18 01/31/18 Range/Units 06:58 08:29 WBC 18.3 H (3.8-10.6) k/uL RBC 2.93 L (4.30-5.90) m/uL Hgb 9.1 L (13.0-17.5) gm/dL Hct 26.9 L (39.0-53.0) % POC Glucose (mg/dL) 126 H (75-99) mg/dL Microbiology - Last 24 Hours (Table) 01/28/18 12:00 Gram Stain - Final Bronchial Washings - Right Bronchial Washings Culture - Final Streptococcus pneumoniae 01/24/18 13:08 Blood Culture - Final Blood No Growth after 144 hours 01/25/18 16:30 Gram Stain - Final Sputum Sputum Culture - Final Streptococcus pneumoniae Barbie albicans Assessment and Plan Plan: ASSESSMENT: Acute exacerbation of chronic obstructive pulmonary disease complicated by purulent tracheobronchitis, s/p bronchoscopy with BAL Fever, tachycardia, and leukocytosis, present on admission, meets SIRS criteria , early sepsis ruled in, resolved Diabetes mellitus, type II, hemoglobin A1c 12.9% Hyperglycemia, secondary to IV steroids and uncontrolled diabetes mellitus History of hemorrhagic CVA Essential hypertension Coronary artery disease with previous stent placement Hyperlipidemia Hypothyroidism History of nicotine dependence, in remission, patient states he quit smoking 9 months ago after smoking 1 pack per day for 30 years PLAN: Pulmonary on consult. Appreciate recommendations and input Continue IV steroids: 60 mg Q6 hours. Wean per pulmonary Continue Rocephin and Diflucan diabetic educator on consult for uncontrolled diabetes Will reevaluate for home oxygen closer to time of discharge Continue Levemir 25 units q 12 hours Novolog sliding scale coverage Continue novolog 10 units TID with meals Home meds as appropriate Monitor labs GI prophylaxis: Protonix 40 mg PO Daily DVT prophylaxis: Heparin 5000 units subcu every 8 hours Monitor vital signs and address as appropriate Discharge planning: Patient to return home when stable Further recommendations pending patient's course Nurse practitioner note has been reviewed by physician. Signing provider agrees with the documented findings, assessment, and plan of care.
[2018-01-31] MEDS: MORPHINE SULFATE/PF 10MG/10ML VL IVP PRN ×3 (11:29→20:14)
[2018-01-31 12:25] LABS: Glucose,Whole Blood 187 mg/dL (75-99)
[2018-01-31 12:31] LABS: Band Neutrophils % 1 %; Eosinophils # (M) 0.18 k/uL (0-0.7); Metamyelocytes # (M) 0.37 k/uL (0); Metamyelocytes % 2 %; Monocytes # (M) 0.55 k/uL (0-1.0); Myelocytes # (M) 0.37 k/uL (0); Myelocytes % 2 %; Neutrophils % (M) 87 %; Nucleated Red Blood Cells 0 /100 WBC (0-0); Total Cells Counted 200
[2018-01-31 12:32] LABS: Poikilocytosis (M) Present; Toxic Granulation Present
[2018-01-31] MEDS ORDERED: VANCOMYCIN IV PER PHARMACY 1 EACH MISC MISCELLANE PRN (14:45)
[2018-01-31] MEDS ORDERED: CEFEPIME 1 GM in SODIUM CHLORIDE 0.9% 50 ML IVPB SCH (15:15)
--- NOTE | 2018-01-31 15:40 | P.PN ---
Subjective Progress Note Date: 01/31/18 Principal diagnosis: Acute COPD exacerbation complicated by purulent tracheobronchitis This is a 63-year-old male who presents to the emergency department on January 24 with complaints of increasing shortness of breath. He was seen by me in the office recently treated with Depo-Medrol and extended prednisone burst and taper and some antibiotics. Despite that, he did not improve and that's why he ended up coming to the emergency room. In addition, between the time he saw me last in the ER visit, he apparently went to urgent care. He was found have a slight temperature elevation. He apparently was exposed to influenza was concern. His complaints include chest tightness wheezing coughing chest congestion and phlegm production. Chest x-ray was negative for infiltrate. It just showed COPD. I was concerned the last time I saw him that he might not get better and told to come to the emergency room and they did not. In fact, I think he would benefit from bronchoscopy BAL and airway examination. On 01/26/2018 seen in follow-up. He remains wheezy and congested. At times he is able to bring up some yellow phlegm, but for the most part his cough is nonproductive. Remains on 2 L per nasal cannula, with O2 sat at 92-96%. He is afebrile. Hemodynamically stable. He remains on a combination of Pulmicort, Perforomist, DuoNeb, Levaquin, and IV steroids. We'll proceed with bronchoscopy with BAL by Dr. Lee on Wednesday On 01/27/2018 patient seen in follow-up. He states his cough is a lot more productive today, with copious amounts of yellow sputum. Denies any fever or chills, remains bronchospastic and congested. He is wearing his oxygen intermittently, on 2 L per nasal cannula his O2 sat at 92%. He is afebrile. Blood and sputum culture are pending. Urine culture showed no growth. He continues on broad-spectrum antibiotics in the form of Levaquin, IV Solu-Medrol , Pulmicort, Perforomist, DuoNeb nebulized treatments. The plan is to proceed with bronchoscopy with BAL on Wednesday at 11:00. On 01/28/2018 patient seen in follow-up. Still bringing up large amount of yellow sputum, still feels congested, and wheezy. Continues on 2 L per nasal cannula with O2 sat at 93%. Afebrile, lung sounds are positive for diffuse wheezes, and rhonchi. Not much change since admission. We'll proceed with bronchoscopy today at 11 AM. The patient is seen again today 01/29/2018 in follow-up on the regular medical floor. He is awake and alert in no acute distress. He is doing better today as compared to yesterday. Still not quite back to his baseline. He did undergo bronchoscopy with BAL. Cultures are pending. Sputum culture from 01/25 was positive for Streptococcus pneumoniae. He remains on Levaquin. He has been afebrile. Hemodynamically stable. Maintaining good O2 saturations in the 90s on 3 L/m per nasal cannula. Progress note dated 01/30/2018 63-year-old male who was admitted with a diagnosis of COPD exacerbation. He had bronchoscopy with BAL therapeutic lavage on Wednesday. He is feeling a bit better. Certainly not back to baseline. Still complaining of coughing wheezing and shortness of breath. Is having a difficult time coughing up secretions. The patient has no fever or chills. He does cough up any phlegm, has a yellow-green color to it. He had thick secretions in his airways on bronchoscopy. No fever no chills. No nausea vomiting or diarrhea. On 01/31/2018 patient reports persistent wheezing, chest congestion, and only limited improvement since admission despite the maximize medical treatment, and bronchoscopy with BAL. The bronch wash cultures are positive for Streptococcus pneumoniae with sensitivity to ceftriaxone which the patient is currently on. Sputum culture from 01/25/2018 was positive for Streptococcus pneumonia and Barbie albicans. The patient is on oral Diflucan. Patient reports still being very dyspneic with minimal exertion even walking to the bathroom. He is afebrile, he continues on 3 L per nasal cannula with O2 sat at 95%. Hemodynamically stable. His cough is productive of large amount of yellow sputum. Objective - Vital Signs Vital signs: Vital Signs Temp 97.1 F L 01/31/18 06:33 Pulse 94 01/31/18 11:30 Resp 16 01/31/18 06:33 BP 123/69 01/31/18 06:33 Pulse Ox 95 01/31/18 06:33 Intake & Output 01/30/18 01/31/18 01/31/18 18:59 06:59 18:59 Other: Voiding Method Toilet # Voids 1 1 - Exam GENERAL EXAM: Alert, pleasant, 63-year-old white male comfortable in no apparent distress. HEAD: Normocephalic/atraumatic. EYES: Normal reaction of pupils, equal size. Conjunctiva pink, sclera white. NOSE: Clear with pink turbinates. THROAT: No erythema or exudates. NECK: No masses, no JVD, no thyroid enlargement, no adenopathy. CHEST: No chest wall deformity. Symmetrical expansion. LUNGS: Equal air entry with diffuse wheezes and rhonchi CVS: Regular rate and rhythm, normal S1 and S2, no gallops, no murmurs, no rubs ABDOMEN: Soft, nontender. No hepatosplenomegaly, normal bowel sounds, no guarding or rigidity. EXTREMITIES: No clubbing, no edema, no cyanosis, 2+ pulses and upper and lower extremities. MUSCULOSKELETAL: Muscle strength and tone normal. SPINE: No scoliosis or deformity SKIN: No rashes CENTRAL NERVOUS SYSTEM: Alert and oriented -3. No focal deficits, tone is normal in all 4 extremities. PSYCHIATRIC: Alert and oriented -3. Appropriate affect. Intact judgment and insight. - Labs CBC & Chem 7: 01/31/18 08:29 01/30/18 08:08 Labs: Abnormal Lab Results - Last 24 Hours (Table) 01/30/18 01/30/18 01/30/18 Range/Units 11:48 17:24 20:56 WBC (3.8-10.6) k/uL RBC (4.30-5.90) m/uL Hgb (13.0-17.5) gm/dL Hct (39.0-53.0) % POC Glucose (mg/dL) 168 H 298 H 287 H (75-99) mg/dL 01/31/18 01/31/18 Range/Units 06:58 08:29 WBC 18.3 H (3.8-10.6) k/uL RBC 2.93 L (4.30-5.90) m/uL Hgb 9.1 L (13.0-17.5) gm/dL Hct 26.9 L (39.0-53.0) % POC Glucose (mg/dL) 126 H (75-99) mg/dL Microbiology - Last 24 Hours (Table) 01/28/18 12:00 Gram Stain - Final Bronchial Washings - Right Bronchial Washings Culture - Final Streptococcus pneumoniae 01/24/18 13:08 Blood Culture - Final Blood No Growth after 144 hours 01/25/18 16:30 Gram Stain - Final Sputum Sputum Culture - Final Streptococcus pneumoniae Barbie albicans Assessment and Plan Plan: Assessment: #1. COPD exacerbation complicated by purulent tracheobronchitis, she is status post bronchoscopy with BAL on 01/28/2018, bronchial washing cultures are positive for strep pneumoniae #2. Diabetes mellitus #3. Hypothyroidism #4. Essential hypertension #5. Hyperlipidemia #6. History of CVA #7. History of shingles #8. Chronic hypoxemia Plan: Patient acknowledged results have been reviewed, and although it showed sensitivity to Rocephin, patient has had limited improvement in his dyspnea, chest congestion and wheezing. We will switch antibiotics to us cefepime and vancomycin, continue Solu-Medrol 60 mg every 6 hours, continue Pulmicort, Perforomist, and DuoNeb. We'll monitor the patient's response and if there is no improvement we may have to consider repeat bronchoscopy with BAL. I performed a history & physical examination of the patient and discussed their management with my nurse practitioner, Heike Corley. I reviewed the nurse practitioner's note and agree with the documented findings and plan of care. Lung sounds are positive for diffuse wheezes and rhonchi throughout the lung sanchez. The findings and the impression was discussed with the patient. I attest to the documentation by the nurse practitioner. Time with Patient: Less than 30
[2018-01-31] MEDS: CEFEPIME 2 GM in SODIUM CHLORIDE 0.9% 50 ML IVPB SCH ×2 (15:47→21:54)
[2018-01-31] MEDS: VANCOMYCIN 1,500 MG in SODIUM CHLORIDE 0.9% 250 ML IVPB SCH ×2 (16:49→23:00)
[2018-01-31 18:02] LABS: Glucose,Whole Blood 97 mg/dL (75-99)
[2018-01-31] MEDS: FLUCONAZOLE 100 MG TAB PO SCH (20:17)
[2018-01-31 20:49] LABS: Glucose,Whole Blood 217 mg/dL (75-99)
[2018-01-31] MEDS: ZOLPIDEM 5 MG TAB PO SCH (21:14)
[2018-02-01] MEDS: methylPREDNISolone SOD SUCCI 125 MG/2 ML VIAL IV SCH ×4 (05:51→23:51)
[2018-02-01] MEDS: LEVOTHYROXINE 112 MCG TAB PO SCH (06:49)
[2018-02-01 07:44] LABS: Glucose,Whole Blood 130 mg/dL (75-99)
[2018-02-01] MEDS: BUDESONIDE 1 MG/2 ML NEBU INHALATION SCH ×2 (07:44→19:29)
[2018-02-01] MEDS: IPRATROPIUM-ALBUTEROL 3 ML NEB INHALATION SCH ×4 (07:44→19:29)
[2018-02-01] MEDS: FORMOTEROL FUMARATE 20 MCG/2 ML NEBU INHALATION SCH ×2 (07:44→19:29)
[2018-02-01] MEDS: INSULIN ASPART 100 UNIT/ML 1 ML 10 ML VIAL SQ SCH ×7 (08:19→22:22)
[2018-02-01] MEDS: CEFEPIME 2 GM in SODIUM CHLORIDE 0.9% 50 ML IVPB SCH ×2 (08:22→20:26)
[2018-02-01] MEDS: INSULIN DETEMIR 100 UNIT/ML 10 ML VIAL SQ SCH ×2 (08:22→22:22)
[2018-02-01] MEDS: VANCOMYCIN 1,500 MG in SODIUM CHLORIDE 0.9% 250 ML IVPB SCH ×3 (08:22→23:54)
[2018-02-01] MEDS: PANTOPRAZOLE 40 MG TABLET PO SCH (08:22)
[2018-02-01] MEDS: HEPARIN SODIUM,PORCINE 5,000 UNIT/ML 1 ML VIAL SQ SCH ×3 (08:22→23:52)
[2018-02-01] MEDS: ASPIRIN 81 MG PO SCH (08:23)
[2018-02-01] MEDS: VARENICLINE 1 MG TAB PO SCH ×2 (08:23→20:26)
[2018-02-01] MEDS: LOSARTAN 50 MG TAB PO SCH (08:23)
[2018-02-01] MEDS: ATORVASTATIN 80 MG TAB PO SCH (08:23)
[2018-02-01] MEDS: FUROSEMIDE 20 MG TAB PO SCH (08:23)
[2018-02-01 09:24] LABS: Anion Gap 8 mmol/L; Blood Urea Nitrogen 38 mg/dL (9-20); Calcium 8.6 mg/dL (8.4-10.2); Carbon Dioxide 32 mmol/L (22-30); Chloride 102 mmol/L (98-107); Glucose 106 mg/dL (74-99); Potassium 4.6 mmol/L (3.5-5.1); Sodium 142 mmol/L (137-145)
--- NOTE | 2018-02-01 10:02 | P.PN ---
Subjective Progress Note Date: 02/01/18 63-year-old male who presented to the emergency room with a chief complaint of shortness of breath. The patient states he originally went to urgent care and was told he possibly was having a COPD exacerbation and was referred to the emergency room. Patient admits to sputum production. Admits to feeling feverish. Temperature when he presented to the emergency room was 100.8. Patient denies chest pain or pressure. Denies palpitations. Denies pain or discomfort. Denies nausea or vomiting. The patient states he was exposed to someone with influenza approximately one week ago. Testing for influenza was negative. The patient has a history of COPD, diabetes mellitus type 2, hyperlipidemia, hypertension, and hypothyroidism. He also has a history of a hemorrhagic CVA that required surgical evacuation at [facility]. He was also diagnosed with shingles approximately 6 months ago. Patient is a history of stent placement. He is a former cigarette smoker. Chest x-ray: Findings suggestive of underlying COPD and chronic left hemidiaphragm elevation/left basilar atelectasis. No acute cardiopulmonary process. Laboratory data: WBC 14.8. Hemoglobin 15.9. Platelet count 232. Sodium 136. Potassium 4.0. B UN 18. Creatinine 0.79. Glucose 271. Lactic acid 1.5. Urinalysis reveals: Trace proteinuria, 4+ glucose, 1+ ketones The patient was admitted to the hospital under the care of Dr. Galeana. Consultations were placed to pulmonary. His blood sugars were significantly elevated last night with readings over 600. He was started on insulin drip. 01/26/2018 Patient examined at the bedside on rounds with Dr. Galeana. Patient remains on an insulin drip as his blood sugars have been ranging between 200 and 300. Patient remains on Solu-Medrol: 60 mg IV every 6 hours. Patient states he does not feel short of breath at rest but he reports dyspnea with minimal exertion. He remains on 2 L nasal cannula with oxygen saturations greater then 92%. Patient is asking about obtaining home oxygen. Explained to patient we will evaluate for home oxygen closer to the time of discharge. The patient is scheduled for bronchoscopy with Dr. Lee on Wednesday. 01/27/2018 Patient examined at the bedside on rounds with Dr. Galeana. Patient remains on Solu-Medrol: 60 mg IV every 6 hours. Patient remains on insulin drip. Blood sugars recently ranging from 123-211. Patient states he does not feel short of breath at rest but he reports dyspnea with minimal exertion. On 2 L NC with oxygen saturations greater than 92%. Blood pressure 133/83. Heart rate in the 90s. The patient is scheduled for bronchoscopy with Dr. Lee on Wednesday. 01/28/2018 Patient examined at the bedside. Patient is scheduled for bronch with BAL today with Dr. Lee. Patient states his breathing does not feel much better today than yesterday. He states he is still SOB with exertion. He remains on 2L NC. Frequent coughing continues per patient. Blood glucose remains elevated with readings between 186-237. Denies nausea or vomiting. Denies chest pain or pressure. Denies pain or discomfort. 01/29/2018-Note per Dr. Galeana: Patient status post Bronch. Fungal OMAR and cultures are pending. Bronchial washing found rare leukocytes were epithelial cells few gram-positive cocci and rare gram-negative bacilli. Patient is on Levaquin currently. Previous sputum culture positive for Streptococcus pneumoniae, moderate. He indicates he is feeling slightly better with less shortness of breath. He is tolerating his diet. He remains on Solu-Medrol 60 mg every 6 hours 01/30/2018-Note per Dr. Galeana: Patient feels slightly better than the previous day. He denies any chest pain, nausea, vomiting, diarrhea, constipation. He has continually have shortness of breath bases exertion. He states it is better than previous day. Her maintenance Solu-Medrol 60 mg every 6 hourly. 01/31/2018 Patient seen and examined at the bedside. Patient states his breathing is still not back to baseline. He is coughing up a decent amount of yellow-green sputum. Patient continues to require oxygen. Currently wearing 3L NC with oxygen saturations greater than 92%. Patient denies chest pain or pressure. Patient is currently on Rocephin and fluconazole. He remains on IV steroids: Solu-Medrol 60 mg every 6 hours. Bronchial washings are positive for Streptococcus pneumoniae. 02/01/2018 Patient seen and examined at the bedside.Patient states his breathing is feeling better this morning. Patient states he still has a productive cough but it is improving. Patient is on 5L NC with oxygen saturations greater than 92%. Bronchial washings are positive for Streptococcus pneumoniae. He remains on IV steroids: Solu-Medrol 60 mg every 6 hours. His antibiotics were changed yesterday per pulmonary to Cefepime and Vancomycin. Objective - Vital Signs Vital signs: Vital Signs Temp 97.5 F L 02/01/18 07:00 Pulse 86 02/01/18 08:09 Resp 20 02/01/18 07:00 BP 143/73 02/01/18 07:00 Pulse Ox 95 02/01/18 07:46 Intake & Output 01/31/18 02/01/18 02/01/18 18:59 06:59 18:59 Intake Total 740 Balance 740 Intake: Intake, IV Titration 300 Amount Cefepime 2 gm In Sodium 50 Chloride 0.9% 50 ml @ 100 mls/hr IVPB Q12HR CLAY Rx #:[id number] Vancomycin 1,500 mg In 250 Sodium Chloride 0.9% 250 ml @ 125 mls/hr IVPB Q8HR CLAY Rx#:[id number] Oral 440 Other: Voiding Method Toilet Toilet # Voids 2 2 # Bowel Movements 1 - Exam GENERAL: This is a 63-year-old male in no apparent distress at the time of examination. Pleasant and cooperative. HEENT: Head is atraumatic, normocephalic. Pupils are equal, round, and reactive to light. Sclerae anicteric. Conjunctivae are clear. Mucus membranes of the mouth are moist. Neck is supple. RESPIRATORY: Expiratory wheezing noted, improved since yesterday. Coughing less since less examination. No use of accessory muscles. Patient maintaining oxygen saturation greater than 92% on nasal cannula. No chest wall tenderness is noted on palpation or with deep breathing. CARDIOVASCULAR: Regular rate and rhythm. S1 and S2 noted. No JVD noted. No S3 or S4 noted. GASTROINTESTINAL: No distention noted. Abdomen soft and round. Normal active bowel sounds auscultated x 4 quadrants. No pain or tenderness noted upon palpation. INTEGUMENTARY: No cyanosis. No jaundice. No rashes noted. No cellulitis noted. EXTREMITIES: 2+ peripheral pulses. No evidence of peripheral edema. No calf tenderness noted. NEUROLOGIC: Cranial nerves II-XII intact. PSYCHIATRIC: Awake, alert, and oriented X 3. Appropriate affect. Intact judgement and insight. - Labs CBC & Chem 7: 01/31/18 08:29 02/01/18 08:21 Labs: Abnormal Lab Results - Last 24 Hours (Table) 01/31/18 01/31/18 01/31/18 Range/Units 08:29 12:21 20:47 WBC 18.3 H (3.8-10.6) k/uL RBC 2.93 L (4.30-5.90) m/uL Hgb 9.1 L (13.0-17.5) gm/dL Hct 26.9 L (39.0-53.0) % Neutrophils # (Manual) 16.10 H (1.3-7.7) k/uL Metamyelocytes # (Man) 0.37 H (0) k/uL Myelocytes # (Manual) 0.37 H (0) k/uL Carbon Dioxide (22-30) mmol/L BUN (9-20) mg/dL Glucose (74-99) mg/dL POC Glucose (mg/dL) 187 H 217 H (75-99) mg/dL 02/01/18 02/01/18 Range/Units 07:39 08:21 WBC (3.8-10.6) k/uL RBC (4.30-5.90) m/uL Hgb (13.0-17.5) gm/dL Hct (39.0-53.0) % Neutrophils # (Manual) (1.3-7.7) k/uL Metamyelocytes # (Man) (0) k/uL Myelocytes # (Manual) (0) k/uL Carbon Dioxide 32 H (22-30) mmol/L BUN 38 H (9-20) mg/dL Glucose 106 H (74-99) mg/dL POC Glucose (mg/dL) 130 H (75-99) mg/dL Microbiology - Last 24 Hours (Table) 01/28/18 12:00 Fungal Culture - Preliminary Bronchial Washings - Right Barbie albicans 01/28/18 12:00 Gram Stain - Final Bronchial Washings - Right Bronchial Washings Culture - Final Streptococcus pneumoniae Assessment and Plan Plan: ASSESSMENT: Acute exacerbation of chronic obstructive pulmonary disease complicated by purulent tracheobronchitis, s/p bronchoscopy with BAL Fever, tachycardia, and leukocytosis, present on admission, meets SIRS criteria , early sepsis ruled in, resolved Diabetes mellitus, type II, hemoglobin A1c 12.9% Hyperglycemia, secondary to IV steroids and uncontrolled diabetes mellitus History of hemorrhagic CVA Essential hypertension Coronary artery disease with previous stent placement Hyperlipidemia Hypothyroidism History of nicotine dependence, in remission, patient states he quit smoking 9 months ago after smoking 1 pack per day for 30 years PLAN: Pulmonary on consult. Appreciate recommendations and input Continue IV steroids: 60 mg Q6 hours. Wean per pulmonary Continue Vancomycin and Cefepime per pulmonary [employer] on consult for uncontrolled diabetes Will reevaluate for home oxygen closer to time of discharge Continue Levemir 25 units q 12 hours Novolog sliding scale coverage Continue novolog 10 units TID with meals Home meds as appropriate Monitor labs GI prophylaxis: Protonix 40 mg PO Daily DVT prophylaxis: Heparin 5000 units subcu every 8 hours Monitor vital signs and address as appropriate Discharge planning: Patient to return home when stable Further recommendations pending patient's course Nurse practitioner note has been reviewed by physician. Signing provider agrees with the documented findings, assessment, and plan of care.
[2018-02-01 10:14] LABS: HCT 24.3 % (39.0-53.0); HGB 8.1 gm/dL (13.0-17.5); MCH 30.6 pg (25.0-35.0); MCHC 33.3 g/dL (31.0-37.0); Mean Platelet Volume 7.9; Platelet Count 359 k/uL (150-450); RBC 2.64 m/uL (4.30-5.90); RDW 14.5 % (11.5-15.5); WBC 21.8 k/uL (3.8-10.6)
[2018-02-01 11:54] LABS: Glucose,Whole Blood 251 mg/dL (75-99)
[2018-02-01 11:54] LABS: Band Neutrophils % 1 %; Lymphocytes # (M) 1.53 k/uL (1.0-4.8); Metamyelocytes # (M) 0.22 k/uL (0); Metamyelocytes % 1 %; Monocytes # (M) 0.44 k/uL (0-1.0); Myelocytes # (M) 1.74 k/uL (0); Myelocytes % 8 %; Neutrophils % (M) 82 %; Nucleated Red Blood Cells 0 /100 WBC (0-0); Total Cells Counted 200
[2018-02-01 11:59] LABS: Toxic Granulation Present
[2018-02-01] MEDS: MORPHINE ORAL SOLN 10 MG/5 ML CUP PO PRN ×2 (16:41→23:52)
--- NOTE | 2018-02-01 17:07 | P.PN ---
Subjective Progress Note Date: 02/01/18 Principal diagnosis: Acute COPD exacerbation complicated by purulent tracheobronchitis This is a 63-year-old male who presents to the emergency department on January 24 with complaints of increasing shortness of breath. He was seen by me in the office recently treated with Depo-Medrol and extended prednisone burst and taper and some antibiotics. Despite that, he did not improve and that's why he ended up coming to the emergency room. In addition, between the time he saw me last in the ER visit, he apparently went to urgent care. He was found have a slight temperature elevation. He apparently was exposed to influenza was concern. His complaints include chest tightness wheezing coughing chest congestion and phlegm production. Chest x-ray was negative for infiltrate. It just showed COPD. I was concerned the last time I saw him that he might not get better and told to come to the emergency room and they did not. In fact, I think he would benefit from bronchoscopy BAL and airway examination. On 01/26/2018 seen in follow-up. He remains wheezy and congested. At times he is able to bring up some yellow phlegm, but for the most part his cough is nonproductive. Remains on 2 L per nasal cannula, with O2 sat at 92-96%. He is afebrile. Hemodynamically stable. He remains on a combination of Pulmicort, Perforomist, DuoNeb, Levaquin, and IV steroids. We'll proceed with bronchoscopy with BAL by Dr. Lee on Wednesday On 01/27/2018 patient seen in follow-up. He states his cough is a lot more productive today, with copious amounts of yellow sputum. Denies any fever or chills, remains bronchospastic and congested. He is wearing his oxygen intermittently, on 2 L per nasal cannula his O2 sat at 92%. He is afebrile. Blood and sputum culture are pending. Urine culture showed no growth. He continues on broad-spectrum antibiotics in the form of Levaquin, IV Solu-Medrol , Pulmicort, Perforomist, DuoNeb nebulized treatments. The plan is to proceed with bronchoscopy with BAL on Wednesday at 11:00. On 01/28/2018 patient seen in follow-up. Still bringing up large amount of yellow sputum, still feels congested, and wheezy. Continues on 2 L per nasal cannula with O2 sat at 93%. Afebrile, lung sounds are positive for diffuse wheezes, and rhonchi. Not much change since admission. We'll proceed with bronchoscopy today at 11 AM. The patient is seen again today 01/29/2018 in follow-up on the regular medical floor. He is awake and alert in no acute distress. He is doing better today as compared to yesterday. Still not quite back to his baseline. He did undergo bronchoscopy with BAL. Cultures are pending. Sputum culture from 01/25 was positive for Streptococcus pneumoniae. He remains on Levaquin. He has been afebrile. Hemodynamically stable. Maintaining good O2 saturations in the 90s on 3 L/m per nasal cannula. Progress note dated 01/30/2018 63-year-old male who was admitted with a diagnosis of COPD exacerbation. He had bronchoscopy with BAL therapeutic lavage on Wednesday. He is feeling a bit better. Certainly not back to baseline. Still complaining of coughing wheezing and shortness of breath. Is having a difficult time coughing up secretions. The patient has no fever or chills. He does cough up any phlegm, has a yellow-green color to it. He had thick secretions in his airways on bronchoscopy. No fever no chills. No nausea vomiting or diarrhea. On 01/31/2018 patient reports persistent wheezing, chest congestion, and only limited improvement since admission despite the maximize medical treatment, and bronchoscopy with BAL. The bronch wash cultures are positive for Streptococcus pneumoniae with sensitivity to ceftriaxone which the patient is currently on. Sputum culture from 01/25/2018 was positive for Streptococcus pneumonia and Barbie albicans. The patient is on oral Diflucan. Patient reports still being very dyspneic with minimal exertion even walking to the bathroom. He is afebrile, he continues on 3 L per nasal cannula with O2 sat at 95%. Hemodynamically stable. His cough is productive of large amount of yellow sputum. On 02/01/2018 patient reports improvement in his dyspnea, his lung sounds remain positive for scattered wheezes and rhonchi, however this is somewhat improved from previous exams. Still remains dyspneic with ambulation, remains on 3 L per nasal cannula with a pulse ox of 94%. Vital signs are stable. Today 's blood work shows WBC of 21.8, up slightly from 18.3 from yesterday's labs, hemoglobin is 8.1, sodium is 142, potassium is 4.6, CO2 is 32, BUN is 38, creatinine 0.78. Straight we started patient on cefepime and vancomycin, Rocephin has been discontinued. Clinically patient is improving, we'll continue current plan of treatment, continue nebulized treatments, continue Solu -Medrol. If he continues to improve, we'll start weaning the steroids down tomorrow. Objective - Vital Signs Vital signs: Vital Signs Temp 97.5 F L 02/01/18 07:00 Pulse 100 02/01/18 15:42 Resp 20 02/01/18 07:00 BP 143/73 02/01/18 07:00 Pulse Ox 94 L 02/01/18 11:17 Intake & Output 01/31/18 02/01/18 02/01/18 18:59 06:59 18:59 Intake Total 740 520 Balance 740 520 Weight 75 kg Intake: Intake, IV Titration 300 Amount Cefepime 2 gm In Sodium 50 Chloride 0.9% 50 ml @ 100 mls/hr IVPB Q12HR CLAY Rx #:[id number] Vancomycin 1,500 mg In 250 Sodium Chloride 0.9% 250 ml @ 125 mls/hr IVPB Q8HR CLAY Rx#:[id number] Oral 440 520 Other: Voiding Method Toilet Toilet # Voids 2 2 2 # Bowel Movements 1 - Exam GENERAL EXAM: Alert, pleasant, 63-year-old white male comfortable in no apparent distress. HEAD: Normocephalic/atraumatic. EYES: Normal reaction of pupils, equal size. Conjunctiva pink, sclera white. NOSE: Clear with pink turbinates. THROAT: No erythema or exudates. NECK: No masses, no JVD, no thyroid enlargement, no adenopathy. CHEST: No chest wall deformity. Symmetrical expansion. LUNGS: Equal air entry with diffuse wheezes and rhonchi, somewhat improved from yesterday's exam CVS: Regular rate and rhythm, normal S1 and S2, no gallops, no murmurs, no rubs ABDOMEN: Soft, nontender. No hepatosplenomegaly, normal bowel sounds, no guarding or rigidity. EXTREMITIES: No clubbing, no edema, no cyanosis, 2+ pulses and upper and lower extremities. MUSCULOSKELETAL: Muscle strength and tone normal. SPINE: No scoliosis or deformity SKIN: No rashes CENTRAL NERVOUS SYSTEM: Alert and oriented -3. No focal deficits, tone is normal in all 4 extremities. PSYCHIATRIC: Alert and oriented -3. Appropriate affect. Intact judgment and insight. - Labs CBC & Chem 7: 02/01/18 08:21 02/01/18 08:21 Labs: Abnormal Lab Results - Last 24 Hours (Table) 01/31/18 02/01/18 02/01/18 Range/Units 20:47 07:39 08:21 WBC (3.8-10.6) k/uL RBC (4.30-5.90) m/uL Hgb (13.0-17.5) gm/dL Hct (39.0-53.0) % Neutrophils # (Manual) (1.3-7.7) k/uL Metamyelocytes # (Man) (0) k/uL Myelocytes # (Manual) (0) k/uL Carbon Dioxide 32 H (22-30) mmol/L BUN 38 H (9-20) mg/dL Glucose 106 H (74-99) mg/dL POC Glucose (mg/dL) 217 H 130 H (75-99) mg/dL 02/01/18 02/01/18 Range/Units 08:21 11:44 WBC 21.8 H (3.8-10.6) k/uL RBC 2.64 L (4.30-5.90) m/uL Hgb 8.1 L (13.0-17.5) gm/dL Hct 24.3 L (39.0-53.0) % Neutrophils # (Manual) 18.00 H (1.3-7.7) k/uL Metamyelocytes # (Man) 0.22 H (0) k/uL Myelocytes # (Manual) 1.74 H (0) k/uL Carbon Dioxide (22-30) mmol/L BUN (9-20) mg/dL Glucose (74-99) mg/dL POC Glucose (mg/dL) 251 H (75-99) mg/dL Microbiology - Last 24 Hours (Table) 01/28/18 12:00 Fungal Culture - Preliminary Bronchial Washings - Right Barbie albicans Assessment and Plan Plan: Assessment: #1. COPD exacerbation complicated by purulent tracheobronchitis, she is status post bronchoscopy with BAL on 01/28/2018, bronchial washing cultures are positive for strep pneumoniae #2. Diabetes mellitus #3. Hypothyroidism #4. Essential hypertension #5. Hyperlipidemia #6. History of CVA #7. History of shingles #8. Chronic hypoxemia Plan: Patient reports improvement in his dyspnea, and chest congestion. Patient's antibiotics have been switched to cefepime and vancomycin, we will continue with IV Solu-Medrol, continue nebulized treatments. If patient continues to improve, we will consider tapering the IV steroids. Increase activity as tolerated. Will follow. I performed a history & physical examination of the patient and discussed their management with my nurse practitioner, Heike Corley. I reviewed the nurse practitioner's note and agree with the documented findings and plan of care. Lung sounds are positive for diffuse wheezes and rhonchi throughout the lung sanchez. The findings and the impression was discussed with the patient. I attest to the documentation by the nurse practitioner. Time with Patient: Less than 30
[2018-02-01 17:50] LABS: Glucose,Whole Blood 246 mg/dL (75-99)
[2018-02-01] MEDS: ZOLPIDEM 5 MG TAB PO SCH (20:26)
[2018-02-01] MEDS: FLUCONAZOLE 100 MG TAB PO SCH (20:26)
[2018-02-01 20:56] LABS: Glucose,Whole Blood 228 mg/dL (75-99)
[2018-02-01 22:04] LABS: T4, Free (Free Thyroxine) 0.8 ng/dL (0.78-2.19)
[2018-02-02 01:26] LABS: Iron Saturation 34.72 (15.00-50.00)
[2018-02-02] MEDS: methylPREDNISolone SOD SUCCI 125 MG/2 ML VIAL IV SCH (06:23)
[2018-02-02] MEDS: LEVOTHYROXINE 112 MCG TAB PO SCH (06:23)
[2018-02-02 06:53] LABS: Glucose,Whole Blood 211 mg/dL (75-99)
[2018-02-02] MEDS ORDERED: VANCOMYCIN TROUGH DUE 1 EACH MISC MISCELLANE ONE (07:00)
[2018-02-02] MEDS: BUDESONIDE 1 MG/2 ML NEBU INHALATION SCH ×2 (07:35→20:37)
[2018-02-02] MEDS: IPRATROPIUM-ALBUTEROL 3 ML NEB INHALATION SCH ×4 (07:35→20:37)
[2018-02-02] MEDS: FORMOTEROL FUMARATE 20 MCG/2 ML NEBU INHALATION SCH ×2 (07:35→20:37)
[2018-02-02 08:04] LABS: MCV 91.3 fL (80.0-100.0); Mean Platelet Volume 6.7; Platelet Count 375 k/uL (150-450); RBC 2.14 m/uL (4.30-5.90); RDW 14.8 % (11.5-15.5); WBC 24.6 k/uL (3.8-10.6)
[2018-02-02 08:07] LABS: HCT 19.6 % (39.0-53.0); HGB 6.6 gm/dL (13.0-17.5)
[2018-02-02 08:29] LABS: Anion Gap 6 mmol/L; Blood Urea Nitrogen 33 mg/dL (9-20); Carbon Dioxide 29 mmol/L (22-30); Chloride 103 mmol/L (98-107); Glucose 181 mg/dL (74-99); Potassium 4.7 mmol/L (3.5-5.1); Sodium 138 mmol/L (137-145)
[2018-02-02] MEDS: INSULIN ASPART 100 UNIT/ML 1 ML 10 ML VIAL SQ SCH ×7 (08:30→21:29)
[2018-02-02] MEDS: VARENICLINE 1 MG TAB PO SCH ×2 (08:32→20:28)
[2018-02-02] MEDS: FUROSEMIDE 20 MG TAB PO SCH (08:32)
[2018-02-02] MEDS: ATORVASTATIN 80 MG TAB PO SCH (08:32)
[2018-02-02] MEDS: LOSARTAN 50 MG TAB PO SCH (08:32)
[2018-02-02] MEDS: VANCOMYCIN 1,500 MG in SODIUM CHLORIDE 0.9% 250 ML IVPB SCH ×2 (08:32→21:22)
[2018-02-02] MEDS: HEPARIN SODIUM,PORCINE 5,000 UNIT/ML 1 ML VIAL SQ SCH (08:33)
[2018-02-02] MEDS: PANTOPRAZOLE 40 MG TABLET PO SCH (08:33)
[2018-02-02] MEDS: INSULIN DETEMIR 100 UNIT/ML 10 ML VIAL SQ SCH ×2 (08:37→21:29)
[2018-02-02] MEDS ORDERED: DEXTROSE 5%-0.9% NACL 1,000 ML IV SCH (08:45)
[2018-02-02] MEDS ORDERED: RX INFO: IV CONTRAST WAS GIVEN 1 EACH MISC MISCELLANE PRN (08:47)
--- NOTE | 2018-02-02 09:08 | P.PN ---
Subjective Progress Note Date: 02/02/18 63-year-old male who presented to the emergency room with a chief complaint of shortness of breath. The patient states he originally went to urgent care and was told he possibly was having a COPD exacerbation and was referred to the emergency room. Patient admits to sputum production. Admits to feeling feverish. Temperature when he presented to the emergency room was 100.8. Patient denies chest pain or pressure. Denies palpitations. Denies pain or discomfort. Denies nausea or vomiting. The patient states he was exposed to someone with influenza approximately one week ago. Testing for influenza was negative. The patient has a history of COPD, diabetes mellitus type 2, hyperlipidemia, hypertension, and hypothyroidism. He also has a history of a hemorrhagic CVA that required surgical evacuation at [facility]. He was also diagnosed with shingles approximately 6 months ago. Patient is a history of stent placement. He is a former cigarette smoker. Chest x-ray: Findings suggestive of underlying COPD and chronic left hemidiaphragm elevation/left basilar atelectasis. No acute cardiopulmonary process. Laboratory data: WBC 14.8. Hemoglobin 15.9. Platelet count 232. Sodium 136. Potassium 4.0. B UN 18. Creatinine 0.79. Glucose 271. Lactic acid 1.5. Urinalysis reveals: Trace proteinuria, 4+ glucose, 1+ ketones The patient was admitted to the hospital under the care of Dr. Galeana. Consultations were placed to pulmonary. His blood sugars were significantly elevated last night with readings over 600. He was started on insulin drip. 01/26/2018 Patient examined at the bedside on rounds with Dr. Galeana. Patient remains on an insulin drip as his blood sugars have been ranging between 200 and 300. Patient remains on Solu-Medrol: 60 mg IV every 6 hours. Patient states he does not feel short of breath at rest but he reports dyspnea with minimal exertion. He remains on 2 L nasal cannula with oxygen saturations greater then 92%. Patient is asking about obtaining home oxygen. Explained to patient we will evaluate for home oxygen closer to the time of discharge. The patient is scheduled for bronchoscopy with Dr. Lee on Wednesday. 01/27/2018 Patient examined at the bedside on rounds with Dr. Galeana. Patient remains on Solu-Medrol: 60 mg IV every 6 hours. Patient remains on insulin drip. Blood sugars recently ranging from 123-211. Patient states he does not feel short of breath at rest but he reports dyspnea with minimal exertion. On 2 L NC with oxygen saturations greater than 92%. Blood pressure 133/83. Heart rate in the 90s. The patient is scheduled for bronchoscopy with Dr. Lee on Wednesday. 01/28/2018 Patient examined at the bedside. Patient is scheduled for bronch with BAL today with Dr. Lee. Patient states his breathing does not feel much better today than yesterday. He states he is still SOB with exertion. He remains on 2L NC. Frequent coughing continues per patient. Blood glucose remains elevated with readings between 186-237. Denies nausea or vomiting. Denies chest pain or pressure. Denies pain or discomfort. 01/29/2018-Note per Dr. Galeana: Patient status post Bronch. Fungal OMAR and cultures are pending. Bronchial washing found rare leukocytes were epithelial cells few gram-positive cocci and rare gram-negative bacilli. Patient is on Levaquin currently. Previous sputum culture positive for Streptococcus pneumoniae, moderate. He indicates he is feeling slightly better with less shortness of breath. He is tolerating his diet. He remains on Solu-Medrol 60 mg every 6 hours 01/30/2018-Note per Dr. Galeana: Patient feels slightly better than the previous day. He denies any chest pain, nausea, vomiting, diarrhea, constipation. He has continually have shortness of breath bases exertion. He states it is better than previous day. Her maintenance Solu-Medrol 60 mg every 6 hourly. 01/31/2018 Patient seen and examined at the bedside. Patient states his breathing is still not back to baseline. He is coughing up a decent amount of yellow-green sputum. Patient continues to require oxygen. Currently wearing 3L NC with oxygen saturations greater than 92%. Patient denies chest pain or pressure. Patient is currently on Rocephin and fluconazole. He remains on IV steroids: Solu-Medrol 60 mg every 6 hours. Bronchial washings are positive for Streptococcus pneumoniae. 02/01/2018 Patient seen and examined at the bedside.Patient states his breathing is feeling better this morning. Patient states he still has a productive cough but it is improving. Patient is on 5L NC with oxygen saturations greater than 92%. Bronchial washings are positive for Streptococcus pneumoniae. He remains on IV steroids: Solu-Medrol 60 mg every 6 hours. His antibiotics were changed yesterday per pulmonary to Cefepime and Vancomycin. 02/02/2018 Patient seen and examined at the bedside. Patient states his breathing has improved and feels less labored. Reports continued sputum production. Remains on NC with oxygen saturations greater than 92%. Patients hemoglobin yesterday was 8.1. Repeat this AM is 6.6. Anemia studies ordered yesterday and are currently pending. Stool for occult blood was ordered yesterday but has not been collected. Patient reports he did not have a bowel movement yesterday, but had a bowel movement the day prior. Patient reports his bowel movement was normal. Patient denies any blood in the stool. Patient denies hemoptysis. Patient does report some abdominal distention. Denies any abdominal pain or discomfort. Rectal exam was performed at the bedside with no gross blood noted. Sample sent to the lab for occult blood. Objective - Vital Signs Vital signs: Vital Signs Temp 98.8 F 02/02/18 07:00 Pulse 88 02/02/18 08:04 Resp 16 02/02/18 07:00 BP 140/84 02/02/18 07:00 Pulse Ox 95 02/02/18 07:00 Intake & Output 02/01/18 02/02/18 02/02/18 18:59 06:59 18:59 Intake Total 520 Balance 520 Weight 75 kg Intake: Oral 520 Other: Voiding Method Toilet # Voids 2 1 - Exam GENERAL: This is a 63-year-old male in no apparent distress at the time of examination. Pleasant and cooperative. HEENT: Head is atraumatic, normocephalic. Pupils are equal, round, and reactive to light. Sclerae anicteric. Conjunctivae are clear. Mucus membranes of the mouth are moist. Neck is supple. RESPIRATORY: Scattered expiratory wheezing noted, improving. Coughing less since last examination. No use of accessory muscles. Patient maintaining oxygen saturation greater than 92% on nasal cannula. No chest wall tenderness is noted on palpation or with deep breathing. CARDIOVASCULAR: Regular rate and rhythm. S1 and S2 noted. No JVD noted. No S3 or S4 noted. GASTROINTESTINAL: Abdominal distention noted. However, abdomen remains soft. No pain or tenderness noted upon palpation of all 4 quadrants. Bowel sounds auscultated 4 quadrants. Rectal exam completed with normal rectal tone. No gross blood noted. INTEGUMENTARY: Ecchymosis noted to right lower quadrant of abdomen. No cyanosis. No jaundice. No rashes noted. No cellulitis noted. EXTREMITIES: 2+ peripheral pulses. No evidence of peripheral edema. No calf tenderness noted. NEUROLOGIC: Cranial nerves II-XII intact. PSYCHIATRIC: Awake, alert, and oriented X 3. Appropriate affect. Intact judgement and insight. - Labs CBC & Chem 7: 02/02/18 10:22 02/02/18 07:47 Labs: Abnormal Lab Results - Last 24 Hours (Table) 02/01/18 02/01/18 02/01/18 Range/Units 08:21 08:21 08:21 WBC 21.8 H (3.8-10.6) k/uL RBC 2.64 L (4.30-5.90) m/uL Hgb 8.1 L (13.0-17.5) gm/dL Hct 24.3 L (39.0-53.0) % Neutrophils # (Manual) 18.00 H (1.3-7.7) k/uL Metamyelocytes # (Man) 0.22 H (0) k/uL Myelocytes # (Manual) 1.74 H (0) k/uL Retic Count 4.0 H (0.5-2.0) % Carbon Dioxide 32 H (22-30) mmol/L BUN 38 H (9-20) mg/dL Glucose 106 H (74-99) mg/dL POC Glucose (mg/dL) (75-99) mg/dL Calcium (8.4-10.2) mg/dL Ferritin (22.0-322.0) ng/mL TSH (0.465-4.680) mIU/L 02/01/18 02/01/18 02/01/18 Range/Units 08:21 08:21 11:44 WBC (3.8-10.6) k/uL RBC (4.30-5.90) m/uL Hgb (13.0-17.5) gm/dL Hct (39.0-53.0) % Neutrophils # (Manual) (1.3-7.7) k/uL Metamyelocytes # (Man) (0) k/uL Myelocytes # (Manual) (0) k/uL Retic Count (0.5-2.0) % Carbon Dioxide (22-30) mmol/L BUN (9-20) mg/dL Glucose (74-99) mg/dL POC Glucose (mg/dL) 251 H (75-99) mg/dL Calcium (8.4-10.2) mg/dL Ferritin 455.7 H (22.0-322.0) ng/mL TSH 0.420 L (0.465-4.680) mIU/L 02/01/18 02/01/18 02/02/18 Range/Units 17:09 20:51 06:52 WBC (3.8-10.6) k/uL RBC (4.30-5.90) m/uL Hgb (13.0-17.5) gm/dL Hct (39.0-53.0) % Neutrophils # (Manual) (1.3-7.7) k/uL Metamyelocytes # (Man) (0) k/uL Myelocytes # (Manual) (0) k/uL Retic Count (0.5-2.0) % Carbon Dioxide (22-30) mmol/L BUN (9-20) mg/dL Glucose (74-99) mg/dL POC Glucose (mg/dL) 246 H 228 H 211 H (75-99) mg/dL Calcium (8.4-10.2) mg/dL Ferritin (22.0-322.0) ng/mL TSH (0.465-4.680) mIU/L 02/02/18 02/02/18 Range/Units 07:47 07:47 WBC 24.6 H (3.8-10.6) k/uL RBC 2.14 L (4.30-5.90) m/uL Hgb 6.6 L* D (13.0-17.5) gm/dL Hct 19.6 L* (39.0-53.0) % Neutrophils # (Manual) (1.3-7.7) k/uL Metamyelocytes # (Man) (0) k/uL Myelocytes # (Manual) (0) k/uL Retic Count (0.5-2.0) % Carbon Dioxide (22-30) mmol/L BUN 33 H (9-20) mg/dL Glucose 181 H (74-99) mg/dL POC Glucose (mg/dL) (75-99) mg/dL Calcium 8.0 L (8.4-10.2) mg/dL Ferritin (22.0-322.0) ng/mL TSH (0.465-4.680) mIU/L Microbiology - Last 24 Hours (Table) 01/28/18 12:00 Fungal Culture - Preliminary Bronchial Washings - Right Barbie albicans Assessment and Plan Plan: ASSESSMENT: Acute exacerbation of chronic obstructive pulmonary disease complicated by purulent tracheobronchitis, s/p bronchoscopy with BAL Fever, tachycardia, and leukocytosis, present on admission, meets SIRS criteria , early sepsis ruled in, resolved Continued leukocytosis, maybe be secondary to steroids, can not exclude contributing infectious process Anemia, etiology unclear, possible acute blood loss Diabetes mellitus, type II, hemoglobin A1c 12.9% Hyperglycemia, secondary to IV steroids and uncontrolled diabetes mellitus History of hemorrhagic CVA Essential hypertension Coronary artery disease with previous stent placement Hyperlipidemia Hypothyroidism History of nicotine dependence, in remission, patient states he quit smoking 9 months ago after smoking 1 pack per day for 30 years PLAN: Rectal exam was performed at the bedside with no gross blood noted. Sample sent to the lab for occult blood. Await results [address] abdomen/pelvis with IV contrast 0.9NS at 100cc/hr Consult general surgery, Dr. Federico NARAYAN daily aspirin and subcu heparin Protonix 40mg IV BID Pulmonary on consult. Appreciate recommendations and input Continue IV steroids: 60 mg Q6 hours. Wean per pulmonary Continue Vancomycin and Cefepime per pulmonary diabetic educator on consult for uncontrolled diabetes Will reevaluate for home oxygen closer to time of discharge Increase Levemir to 28 units q 12 hours Novolog sliding scale coverage Increased novolog to 12 units TID with meals Home meds as appropriate Monitor labs GI prophylaxis: Protonix 40mg IV BID DVT prophylaxis: LUCIO hose to bilateral LE Monitor vital signs and address as appropriate Discharge planning: Patient to return home when stable Further recommendations pending patient's course Nurse practitioner note has been reviewed by physician. Signing provider agrees with the documented findings, assessment, and plan of care.
[2018-02-02 09:43] LABS: Anisocytosis (M) Present; Band Neutrophils % 2 %; Lymphocytes # (M) 1.48 k/uL (1.0-4.8); Metamyelocytes # (M) 0.74 k/uL (0); Metamyelocytes % 3 %; Monocytes # (M) 0.74 k/uL (0-1.0); Myelocytes # (M) 0.98 k/uL (0); Myelocytes % 4 %; Neutrophils % (M) 83 %; Nucleated Red Blood Cells 0 /100 WBC (0-0); Poikilocytosis (M) Present; Polychromasia Present; Promyelocytes # (M) 0.25 k/uL (0); Promyelocytes % 1 %; Total Cells Counted 200
[2018-02-02 09:44] LABS: Toxic Granulation Present
[2018-02-02] MEDS: SODIUM CHLORIDE 0.9% 1,000 ML IV SCH (10:02)
[2018-02-02] MEDS: CEFEPIME 2 GM in SODIUM CHLORIDE 0.9% 50 ML IVPB SCH ×3 (10:03→20:33)
[2018-02-02] MEDS: PANTOPRAZOLE 40 MG/10 ML VIAL IVP SCH ×2 (10:03→20:27)
--- NOTE | 2018-02-02 10:11 | CT ---
EXAMINATION TYPE: CT abdomen pelvis w con DATE OF EXAM: 02/02/2018 COMPARISON: NONE HISTORY: Abdominal distention, low hgb, left lower quadrant pain CT DLP: 1133.6 mGycm CONTRAST: CT scan of the abdomen and pelvis is performed without Oral Contrast and with IV Contrast, patient in jected with 100 mL of Isovue 300. FINDINGS: LUNG BASES-: Basilar atelectasis and small effusions noted. LIVER/GB: Cholecystectomy clips are in place. No space occupying hepatic lesion. Biliary tree is o f normal caliber. PANCREAS: No inflammation. No distinct mass. SPLEEN: No splenic enlargement. No lesion seen. ADRENALS: No nodule. No thickening. KIDNEYS/BLADDER: No hydronephrosis. No nephrolithiasis. No distinct renal mass. Urinary bladder di splacement from left to right. BOWEL: Normal appendix. Normal bowel caliber. No inflammation. GENITAL ORGANS: No gross abnormality. LYMPH NODES: No greater than 1cm abdominal or pelvic lymph nodes are appreciated. AORTA: No significant abnormality. OSSEOUS STRUCTURES: No significant abnormality is seen. OTHER: There is a large left greater than right rectus sheath hematoma with hematoma/hemorrhage exten ding into the left hemipelvis and inguinal canals. Rectus sheath component on the left measures 14.7 x 6.5 cm with pelvic component measuring approximately 5.8 x 11 cm. Right-sided rectus sheath compone nt is much smaller in size and measures 7.7 cm in length. Presacral fluid noted. Fluid is also noted to track anterior to the psoas musculature. IMPRESSION: 1. Large left-sided rectus sheath hematoma with extension into the left hemipelvis and left inguinal canal. Right-sided rectus sheath hematoma is much smaller in size. See above.
[2018-02-02 10:33] LABS: HCT 20.5 % (39.0-53.0); MCH 29.9 pg (25.0-35.0); MCHC 32.3 g/dL (31.0-37.0); MCV 92.4 fL (80.0-100.0); Mean Platelet Volume 7.9; Platelet Count 361 k/uL (150-450); RBC 2.22 m/uL (4.30-5.90); RDW 14.9 % (11.5-15.5); WBC 24.6 k/uL (3.8-10.6)
[2018-02-02 10:34] LABS: HGB 6.6 gm/dL (13.0-17.5)
[2018-02-02 11:48] LABS: Anisocytosis (M) Present; Band Neutrophils % 6 %; Lymphocytes # (M) 1.23 k/uL (1.0-4.8); Metamyelocytes # (M) 0.49 k/uL (0); Metamyelocytes % 2 %; Monocytes # (M) 0.25 k/uL (0-1.0); Myelocytes # (M) 0.74 k/uL (0); Myelocytes % 3 %; Neutrophils % (M) 85 %; Nucleated Red Blood Cells 0 /100 WBC (0-0); Poikilocytosis (M) Present; Promyelocytes # (M) 0.25 k/uL (0); Promyelocytes % 1 %; Total Cells Counted 200; Toxic Granulation Present
[2018-02-02 12:09] LABS: Glucose,Whole Blood 209 mg/dL (75-99)
[2018-02-02] MEDS: FUROSEMIDE 10 MG/ML 2 ML VIAL IV SCH ×2 (14:02→17:34)
--- NOTE | 2018-02-02 14:45 | P.PN ---
Subjective Progress Note Date: 02/02/18 Principal diagnosis: Acute COPD exacerbation complicated by purulent tracheobronchitis This is a 63-year-old male who presents to the emergency department on January 24 with complaints of increasing shortness of breath. He was seen by me in the office recently treated with Depo-Medrol and extended prednisone burst and taper and some antibiotics. Despite that, he did not improve and that's why he ended up coming to the emergency room. In addition, between the time he saw me last in the ER visit, he apparently went to urgent care. He was found have a slight temperature elevation. He apparently was exposed to influenza was concern. His complaints include chest tightness wheezing coughing chest congestion and phlegm production. Chest x-ray was negative for infiltrate. It just showed COPD. I was concerned the last time I saw him that he might not get better and told to come to the emergency room and they did not. In fact, I think he would benefit from bronchoscopy BAL and airway examination. On 01/26/2018 seen in follow-up. He remains wheezy and congested. At times he is able to bring up some yellow phlegm, but for the most part his cough is nonproductive. Remains on 2 L per nasal cannula, with O2 sat at 92-96%. He is afebrile. Hemodynamically stable. He remains on a combination of Pulmicort, Perforomist, DuoNeb, Levaquin, and IV steroids. We'll proceed with bronchoscopy with BAL by Dr. Lee on Wednesday On 01/27/2018 patient seen in follow-up. He states his cough is a lot more productive today, with copious amounts of yellow sputum. Denies any fever or chills, remains bronchospastic and congested. He is wearing his oxygen intermittently, on 2 L per nasal cannula his O2 sat at 92%. He is afebrile. Blood and sputum culture are pending. Urine culture showed no growth. He continues on broad-spectrum antibiotics in the form of Levaquin, IV Solu-Medrol , Pulmicort, Perforomist, DuoNeb nebulized treatments. The plan is to proceed with bronchoscopy with BAL on Wednesday at 11:00. On 01/28/2018 patient seen in follow-up. Still bringing up large amount of yellow sputum, still feels congested, and wheezy. Continues on 2 L per nasal cannula with O2 sat at 93%. Afebrile, lung sounds are positive for diffuse wheezes, and rhonchi. Not much change since admission. We'll proceed with bronchoscopy today at 11 AM. The patient is seen again today 01/29/2018 in follow-up on the regular medical floor. He is awake and alert in no acute distress. He is doing better today as compared to yesterday. Still not quite back to his baseline. He did undergo bronchoscopy with BAL. Cultures are pending. Sputum culture from 01/25 was positive for Streptococcus pneumoniae. He remains on Levaquin. He has been afebrile. Hemodynamically stable. Maintaining good O2 saturations in the 90s on 3 L/m per nasal cannula. Progress note dated 01/30/2018 63-year-old male who was admitted with a diagnosis of COPD exacerbation. He had bronchoscopy with BAL therapeutic lavage on Wednesday. He is feeling a bit better. Certainly not back to baseline. Still complaining of coughing wheezing and shortness of breath. Is having a difficult time coughing up secretions. The patient has no fever or chills. He does cough up any phlegm, has a yellow-green color to it. He had thick secretions in his airways on bronchoscopy. No fever no chills. No nausea vomiting or diarrhea. On 01/31/2018 patient reports persistent wheezing, chest congestion, and only limited improvement since admission despite the maximize medical treatment, and bronchoscopy with BAL. The bronch wash cultures are positive for Streptococcus pneumoniae with sensitivity to ceftriaxone which the patient is currently on. Sputum culture from 01/25/2018 was positive for Streptococcus pneumonia and Barbie albicans. The patient is on oral Diflucan. Patient reports still being very dyspneic with minimal exertion even walking to the bathroom. He is afebrile, he continues on 3 L per nasal cannula with O2 sat at 95%. Hemodynamically stable. His cough is productive of large amount of yellow sputum. On 02/01/2018 patient reports improvement in his dyspnea, his lung sounds remain positive for scattered wheezes and rhonchi, however this is somewhat improved from previous exams. Still remains dyspneic with ambulation, remains on 3 L per nasal cannula with a pulse ox of 94%. Vital signs are stable. Today 's blood work shows WBC of 21.8, up slightly from 18.3 from yesterday's labs, hemoglobin is 8.1, sodium is 142, potassium is 4.6, CO2 is 32, BUN is 38, creatinine 0.78. Straight we started patient on cefepime and vancomycin, Rocephin has been discontinued. Clinically patient is improving, we'll continue current plan of treatment, continue nebulized treatments, continue Solu -Medrol. If he continues to improve, we'll start weaning the steroids down tomorrow. On 02/02/2018 patient seen in follow-up. He states his breathing is much improved, his lung sounds are negative for any wheezes, only a few scattered rhonchi. Patient has been afebrile, vital signs have been stable, he is on 3 L per nasal cannula with O2 sat 95%. On today's blood work it was noted that patient's hemoglobin has acutely decreased to 6.6 from 8.1 on yesterday's labs. His hemoglobin has been steadily trending down, patient was admitted with a hemoglobin of 15.9. Patient denies any black tarry stools, no hematemesis. There has been no obvious source of bleeding. Patient had been complaining of lower abdominal discomfort, with groin tenderness. His groins had been examined and were negative for any signs of hernias. Patient had been coughing extensively, particularly after his bronchoscopy. His right abdomen has been bruised, and at first it was thought to be related to his subcutaneous heparin injections. On today's CT of the abdomen there was a large left greater than right rectus sheath hematomas noted extending into the left hemipelvic and inguinal canals. The rectus sheath component of the left side measures 14.7 x 6.5 cm with pelvic component measuring approximately 5.8 x 11 cm. Right rectus sheath component is much smaller in size and measures 7.7 cm in length. Gen. surgery has been consulted. Patient is not currently on any anticoagulants. On admission his INR was within normal limits. Patient will be transfused with 2 units of packed red blood cells. His coughing has subsided, patient does not have the severe coughing spells like he did last week. On pulmonary standpoint he is improving. His white count is noted to be elevated at 24.6. Patient's brother wash cultures were positive for Streptococcus pneumonia, patient continues on combination of cefepime and vancomycin. No fevers. We will await input of the general surgeon regarding the large bilateral hematomas Objective - Vital Signs Vital signs: Vital Signs Temp 97.7 F 02/02/18 11:55 Pulse 91 02/02/18 12:35 Resp 18 02/02/18 12:35 BP 127/84 02/02/18 12:35 Pulse Ox 95 02/02/18 12:35 Intake & Output 02/01/18 02/02/18 02/02/18 18:59 06:59 18:59 Intake Total 520 300 Balance 520 300 Weight 75 kg Intake: Intake, IV Titration 300 Amount Cefepime 2 gm In Sodium 50 Chloride 0.9% 50 ml @ 100 mls/hr IVPB Q12HR [facility] Rx #:[id number] Vancomycin 1,500 mg In 250 Sodium Chloride 0.9% 250 ml @ 125 mls/hr IVPB Q12HR [facility] Rx#:[id number] Oral 520 Blood Product 0 Rc As-1 Unit 0 [id number] Other: Voiding Method Toilet Toilet # Voids 2 1 2 - Exam GENERAL EXAM: Alert, pleasant, 63-year-old white male comfortable in no apparent distress. HEAD: Normocephalic/atraumatic. EYES: Normal reaction of pupils, equal size. Conjunctiva pink, sclera white. NOSE: Clear with pink turbinates. THROAT: No erythema or exudates. NECK: No masses, no JVD, no thyroid enlargement, no adenopathy. CHEST: No chest wall deformity. Symmetrical expansion. LUNGS: Equal air entry with some scattered rhonchi, somewhat improved from yesterday's exam CVS: Regular rate and rhythm, normal S1 and S2, no gallops, no murmurs, no rubs ABDOMEN: Soft, slightly tender over bilateral lower abdomen and groin areas. There is extensive bruising noted on right lower abdomen, and some bruising on the left lower abdomen. The abdomen is distended, but soft EXTREMITIES: No clubbing, no edema, no cyanosis, 2+ pulses and upper and lower extremities. MUSCULOSKELETAL: Muscle strength and tone normal. SPINE: No scoliosis or deformity SKIN: No rashes CENTRAL NERVOUS SYSTEM: Alert and oriented -3. No focal deficits, tone is normal in all 4 extremities. PSYCHIATRIC: Alert and oriented -3. Appropriate affect. Intact judgment and insight. - Labs CBC & Chem 7: 02/02/18 10:22 02/02/18 07:47 Labs: Abnormal Lab Results - Last 24 Hours (Table) 02/01/18 02/01/18 02/01/18 Range/Units 08:21 08:21 08:21 WBC (3.8-10.6) k/uL RBC (4.30-5.90) m/uL Hgb (13.0-17.5) gm/dL Hct (39.0-53.0) % Neutrophils # (Manual) (1.3-7.7) k/uL Metamyelocytes # (Man) (0) k/uL Myelocytes # (Manual) (0) k/uL Promyelocytes # (Man) (0) k/uL Retic Count 4.0 H (0.5-2.0) % BUN (9-20) mg/dL Glucose (74-99) mg/dL POC Glucose (mg/dL) (75-99) mg/dL Calcium (8.4-10.2) mg/dL Ferritin 455.7 H (22.0-322.0) ng/mL TSH 0.420 L (0.465-4.680) mIU/L Crossmatch 02/01/18 02/01/18 02/02/18 Range/Units 17:09 20:51 06:52 WBC (3.8-10.6) k/uL RBC (4.30-5.90) m/uL Hgb (13.0-17.5) gm/dL Hct (39.0-53.0) % Neutrophils # (Manual) (1.3-7.7) k/uL Metamyelocytes # (Man) (0) k/uL Myelocytes # (Manual) (0) k/uL Promyelocytes # (Man) (0) k/uL Retic Count (0.5-2.0) % BUN (9-20) mg/dL Glucose (74-99) mg/dL POC Glucose (mg/dL) 246 H 228 H 211 H (75-99) mg/dL Calcium (8.4-10.2) mg/dL Ferritin (22.0-322.0) ng/mL TSH (0.465-4.680) mIU/L Crossmatch 02/02/18 02/02/18 02/02/18 Range/Units 07:47 07:47 09:10 WBC 24.6 H (3.8-10.6) k/uL RBC 2.14 L (4.30-5.90) m/uL Hgb 6.6 L* D (13.0-17.5) gm/dL Hct 19.6 L* (39.0-53.0) % Neutrophils # (Manual) 20.90 H (1.3-7.7) k/uL Metamyelocytes # (Man) 0.74 H (0) k/uL Myelocytes # (Manual) 0.98 H (0) k/uL Promyelocytes # (Man) 0.25 H (0) k/uL Retic Count (0.5-2.0) % BUN 33 H (9-20) mg/dL Glucose 181 H (74-99) mg/dL POC Glucose (mg/dL) (75-99) mg/dL Calcium 8.0 L (8.4-10.2) mg/dL Ferritin (22.0-322.0) ng/mL TSH (0.465-4.680) mIU/L Crossmatch See Detail 02/02/18 02/02/18 Range/Units 10:22 11:57 WBC 24.6 H (3.8-10.6) k/uL RBC 2.22 L (4.30-5.90) m/uL Hgb 6.6 L* (13.0-17.5) gm/dL Hct 20.5 L (39.0-53.0) % Neutrophils # (Manual) 22.30 H (1.3-7.7) k/uL Metamyelocytes # (Man) 0.49 H (0) k/uL Myelocytes # (Manual) 0.74 H (0) k/uL Promyelocytes # (Man) 0.25 H (0) k/uL Retic Count (0.5-2.0) % BUN (9-20) mg/dL Glucose (74-99) mg/dL POC Glucose (mg/dL) 209 H (75-99) mg/dL Calcium (8.4-10.2) mg/dL Ferritin (22.0-322.0) ng/mL TSH (0.465-4.680) mIU/L Crossmatch Microbiology - Last 24 Hours (Table) 01/28/18 12:00 Fungal Culture - Preliminary Bronchial Washings - Right Barbie albicans Assessment and Plan Plan: Assessment: #1. COPD exacerbation complicated by purulent tracheobronchitis, she is status post bronchoscopy with BAL on 01/28/2018, bronchial washing cultures are positive for strep pneumoniae. Patient is currently on combination of cefepime and vancomycin, improving. #2. Acute blood loss anemia, related to large bilateral rectal sheath hematoma' s extending into the left hemipelvis and left inguinal canal. This is thought to be related to patient's severe coughing spells several days ago. His cough is now subsided .Today's hemoglobin is 6.6, patient will be transfused with 2 units PRBCs #2. Diabetes mellitus #3. Hypothyroidism #4. Essential hypertension #5. Hyperlipidemia #6. History of CVA #7. History of shingles #8. Chronic hypoxemia Plan: Patient continues to improve from pulmonary standpoint, no worsening dyspnea, lung sounds are positive for some scattered rhonchi, and few end expiratory wheezing, but overall he reports a big improvement. His cough has subsided. We will decrease the Solu-Medrol. Continue cefepime and vancomycin. Patient has bilateral large rectal sheath hematoma's extending into the left hemipelvis and left inguinal canal. Patient has acute blood loss anemia related to the above. She will be transfused with 2 units of PRBCs, general surgery has been consulted. I performed a history & physical examination of the patient and discussed their management with my nurse practitioner, Heike Corley. I reviewed the nurse practitioner's note and agree with the documented findings and plan of care. Lung sounds are positive for a few scattered rhonchi, and expiratory wheezes. The findings and the impression was discussed with the patient. I attest to the documentation by the nurse practitioner. Time with Patient: Less than 30
[2018-02-02] MEDS: methylPREDNISolone SOD SUCCI 40 MG/ML 1 ML VIAL IV SCH ×2 (16:40→23:41)
[2018-02-02 17:47] LABS: Glucose,Whole Blood 219 mg/dL (75-99)
[2018-02-02] MEDS: ZOLPIDEM 5 MG TAB PO SCH (20:27)
[2018-02-02] MEDS: FLUCONAZOLE 100 MG TAB PO SCH (20:27)
[2018-02-02 21:02] LABS: HCT 26.2 % (39.0-53.0); MCH 30.8 pg (25.0-35.0); MCHC 35.2 g/dL (31.0-37.0); MCV 87.5 fL (80.0-100.0); Mean Platelet Volume 7.2; Platelet Count 344 k/uL (150-450); RBC 2.99 m/uL (4.30-5.90); RDW 15.2 % (11.5-15.5)
[2018-02-02 21:08] LABS: Glucose,Whole Blood 134 mg/dL (75-99)
[2018-02-02 21:12] LABS: HGB 9.2 gm/dL (13.0-17.5)
[2018-02-02 21:55] LABS: Band Neutrophils % 6 %; Metamyelocytes % 3 %; Myelocytes # (M) 0.54 k/uL (0); Myelocytes % 2 %; Neutrophils % (M) 79 %; Nucleated Red Blood Cells 1 /100 WBC (0-0); Total Cells Counted 200
[2018-02-02 21:56] LABS: Lymphocytes # (M) 2.41 k/uL (1.0-4.8); Poikilocytosis (M) Present; Polychromasia Present; WBC 26.8 k/uL (3.8-10.6)
[2018-02-03 02:44] LABS: Glucose,Whole Blood 159 mg/dL (75-99)
[2018-02-03] MEDS: MORPHINE ORAL SOLN 10 MG/5 ML CUP PO PRN ×2 (03:06→10:45)
[2018-02-03] MEDS: SODIUM CHLORIDE 0.9% 1,000 ML IV SCH (06:43)
[2018-02-03] MEDS: LEVOTHYROXINE 112 MCG TAB PO SCH (06:43)
--- NOTE | 2018-02-03 07:20 | P.GSCN ---
History of Present Illness Consult date: 02/03/18 History of present illness: 63-year-old male presented to the emergency department with complaints of shortness of breath. On workup the patient has been found to have an acute exacerbation of COPD. This has been complicated with purulent tracheobronchitis. He has also had a bronchoscopy and BAL during this admission. Yesterday he was found to have a severe drop in hemoglobin to 6.6.he also was noted to have bruising of the right flank and right inferior abdomen. CT of his abdomen and pelvis was performed and this did show evidence of both right and left-sided rectus sheath hematomas. He is noted to have been on heparin subcutaneous injections. He complains of some lower abdominal pain. He has been having normal bowel function. He denies any rectal bleeding. His last bowel movement was 2 days ago and the patient denies any blood in that bowel movement. He also states he is continuing to pass flatus. He denies any nausea and vomiting. He has no additional complaints at this time. Review of Systems All systems: negative Past Medical History Past Medical History: COPD, CVA/TIA, Diabetes Mellitus, Hyperlipidemia, Hypertension, Thyroid Disorder Additional Past Medical History / Comment(s): Hemorrhagic CVA requiring evacuation surgically done at [facility], shingljt recovered approximately 6 months ago, COPD and chronic bronchitis, diabetes mellitus, hypertension, hyperlipidemia Last Myocardial Infarction Date:: unk History of Any Multi-Drug Resistant Organisms: None Reported Past Surgical History: Cholecystectomy, Heart Catheterization With Stent, Orthopedic Surgery Additional Past Surgical History / Comment(s): Right ankle ORIF, left arm medial nerve surgery 15 years ago; brain surgery due to hemorrhagic stroke Past Anesthesia/Blood Transfusion Reactions: No Reported Reaction Date of Last Stent Placement:: Past Psychological History: No Psychological Hx Reported Smoking Status: Former smoker Past Alcohol Use History: None Reported Additional Past Alcohol Use History / Comment(s): Patient is a smoker of one pack per day for 30 years. He stopped 9 months ago He drinks alcohol infrequently. He lives at home with his and 7-year-old daughter. He also has 3 adult daughters that are healthy. 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 Past Drug Use History: None Reported - Past Family History Mother Family Medical History: Diabetes Mellitus Additional Family Medical History / Comment(s): at age 65 from diabetic complications Father Family Medical History: Myocardial Infarction ([place]) Brother(s) Additional Family Medical History / Comment(s): He has 2 brothers, one from AIDS at age 56, one brother is alive and underwent CABG in his 50s. Sister(s) Family Medical History: COPD, Diabetes Mellitus Additional Family Medical History / Comment(s): He has 3 sisters, one from COPD, one is alive with diabetes, one alive and healthy. Medications and Allergies Home Medications Medication Instructions Recorded Confirmed Type Insulin Aspart [NovoLOG Flexpen] See Protocol SQ AC-TID 12/21/14 01/24/18 History Insulin Glargine [Lantus] 24 unit SQ HS 12/21/14 01/24/18 History Levothyroxine Sodium [Synthroid] 112 mcg PO DAILY 12/21/14 01/24/18 History Tiotropium [place] [Spiriva] 18 mcg INHALATION RT-DAILY 12/21/14 01/24/18 History Atorvastatin [Lipitor] 80 mg PO DAILY #30 tab 12/24/14 01/24/18 Rx Acetaminophen Tab [Tylenol] 650 mg PO Q4HR PRN #0 tab 09/13/15 03/09/16 Rx Aspirin EC [Ecotrin Low Dose] 81 mg PO DAILY 03/09/16 01/24/18 History Albuterol Inhaler [Ventolin Hfa 1 - 2 puff INHALATION RT-Q6H PRN 01/24/18 History Inhaler] Albuterol Nebulized [Ventolin 2.5 mg INHALATION RT-QID PRN 01/24/18 01/24/18 History Nebulized] Budesonide-Formot 160-4.5 Mcg 2 puff INHALATION RT-BID 01/24/18 01/24/18 History [Symbicort 160-4.5 Mcg Inhaler] Ciprofloxacin HCl [Cipro] 500 mg PO Q12HR 01/24/18 01/24/18 History Depo-Medrol 80 mg IM ONCE 01/24/18 01/24/18 History Furosemide [Lasix] 20 mg PO DAILY 01/24/18 01/24/18 History Losartan Potassium 100 mg PO DAILY 01/24/18 01/24/18 History Varenicline [Chantix Continuing 1 mg PO BID 01/24/18 01/24/18 History Pack] predniSONE See Taper PO DIRECTED 01/24/18 01/24/18 History Allergies Allergy/AdvReac Type Severity Reaction Status Date / Time bupropion HCl Allergy Unknown Verified 01/24/18 13:03 [From Wellbutrin] Surgical - Exam Osteopathic Statement: *. No significant issues noted on an osteopathic structural exam other than those noted in the History and Physical/Consult. Vital Signs Temp Pulse Resp BP Pulse Ox 100.8 F H 125 H 24 143/80 93 L 01/24/18 12:58 01/24/18 12:58 01/24/18 12:58 01/24/18 12:58 01/24/18 12:58 - General well developed, no distress - Eyes PERRL - ENT normal mucosa, no hearing loss - Neck trachea midline - Respiratory No difficulty with respiration - Abdomen Soft, mild tenderness in the lower quadrants, nondistended, no rebound, no guarding, ecchymosis noted in the right flank and right lower quadrant - Neurologic normal sensation - Psychiatric oriented to time, oriented to person, oriented to place Results - Labs 02/02/18 20:39 02/02/18 07:47 Abnormal Lab Results - Last 24 Hours (Table) 02/02/18 02/02/18 02/02/18 Range/Units 07:47 07:47 09:10 WBC 24.6 H (3.8-10.6) k/uL RBC 2.14 L (4.30-5.90) m/uL Hgb 6.6 L* D (13.0-17.5) gm/dL Hct 19.6 L* (39.0-53.0) % Neutrophils # (Manual) 20.90 H (1.3-7.7) k/uL Metamyelocytes # (Man) 0.74 H (0) k/uL Myelocytes # (Manual) 0.98 H (0) k/uL Promyelocytes # (Man) 0.25 H (0) k/uL Nucleated RBCs (0-0) /100 WBC BUN 33 H (9-20) mg/dL Glucose 181 H (74-99) mg/dL POC Glucose (mg/dL) (75-99) mg/dL Calcium 8.0 L (8.4-10.2) mg/dL Crossmatch See Detail 02/02/18 02/02/18 02/02/18 Range/Units 10:22 11:57 17:41 WBC 24.6 H (3.8-10.6) k/uL RBC 2.22 L (4.30-5.90) m/uL Hgb 6.6 L* (13.0-17.5) gm/dL Hct 20.5 L (39.0-53.0) % Neutrophils # (Manual) 22.30 H (1.3-7.7) k/uL Metamyelocytes # (Man) 0.49 H (0) k/uL Myelocytes # (Manual) 0.74 H (0) k/uL Promyelocytes # (Man) 0.25 H (0) k/uL Nucleated RBCs (0-0) /100 WBC BUN (9-20) mg/dL Glucose (74-99) mg/dL POC Glucose (mg/dL) 209 H 219 H (75-99) mg/dL Calcium (8.4-10.2) mg/dL Crossmatch 02/02/18 02/02/18 02/03/18 Range/Units 20:39 21:01 02:41 WBC 26.8 H* (3.8-10.6) k/uL RBC 2.99 L (4.30-5.90) m/uL Hgb 9.2 L D (13.0-17.5) gm/dL Hct 26.2 L (39.0-53.0) % Neutrophils # (Manual) 22.70 H (1.3-7.7) k/uL Metamyelocytes # (Man) 0.80 H (0) k/uL Myelocytes # (Manual) 0.54 H (0) k/uL Promyelocytes # (Man) (0) k/uL Nucleated RBCs 1 H (0-0) /100 WBC BUN (9-20) mg/dL Glucose (74-99) mg/dL POC Glucose (mg/dL) 134 H 159 H (75-99) mg/dL Calcium (8.4-10.2) mg/dL Crossmatch Diabetes panel 02/02/18 Range/Units 07:47 Sodium 138 (137-145) mmol/L Potassium 4.7 (3.5-5.1) mmol/L Chloride 103 (98-107) mmol/L Carbon Dioxide 29 (22-30) mmol/L BUN 33 H (9-20) mg/dL Creatinine 0.77 (0.66-1.25) mg/dL Glucose 181 H (74-99) mg/dL Calcium 8.0 L (8.4-10.2) mg/dL Calcium panel 02/02/18 Range/Units 07:47 Calcium 8.0 L (8.4-10.2) mg/dL Pituitary panel 02/02/18 Range/Units 07:47 Sodium 138 (137-145) mmol/L Potassium 4.7 (3.5-5.1) mmol/L Chloride 103 (98-107) mmol/L Carbon Dioxide 29 (22-30) mmol/L BUN 33 H (9-20) mg/dL Creatinine 0.77 (0.66-1.25) mg/dL Glucose 181 H (74-99) mg/dL Calcium 8.0 L (8.4-10.2) mg/dL Adrenal panel 02/02/18 Range/Units 07:47 Sodium 138 (137-145) mmol/L Potassium 4.7 (3.5-5.1) mmol/L Chloride 103 (98-107) mmol/L Carbon Dioxide 29 (22-30) mmol/L BUN 33 H (9-20) mg/dL Creatinine 0.77 (0.66-1.25) mg/dL Glucose 181 H (74-99) mg/dL Calcium 8.0 L (8.4-10.2) mg/dL - Imaging CT scan - abdomen: report reviewed, image reviewed (Images of the CT of the abdomen and pelvis were reviewed. Evidence of bilateral rectus sheath hematomas noted.) CT scan - pelvis: report reviewed, image reviewed Assessment and Plan (1) Rectus sheath hematoma Narrative/Plan: 63-year-old male with acute blood loss anemia secondary to rectus sheath hematoma - The patient was transfused 2 units of packed red blood cells, his hemoglobin has responded appropriately at a level of 9.2. - There is no evidence of hemorrhagic shock. The patient's vitals are stable - I recommend holding any anticoagulation at this time - Can use abdominal binder for compression of the abdomen to assist with tamponade - Continue to follow patient's vitals and hemoglobin - If any continued bleeding, likely will need an attempt of IR angiogram for embolization of vessel - Will continue to follow. Thank you for this consultation. I look forward in providing in this patient's care. Current Visit: Yes Status: Acute Code(s): S30.1XXA - CONTUSION OF ABDOMINAL WALL, INITIAL ENCOUNTER SNOMED Code(s): 377800834
[2018-02-03 07:44] LABS: Glucose,Whole Blood 119 mg/dL (75-99)
[2018-02-03] MEDS: INSULIN ASPART 100 UNIT/ML 1 ML 10 ML VIAL SQ SCH ×5 (07:56→22:00)
[2018-02-03] MEDS: VANCOMYCIN 1,500 MG in SODIUM CHLORIDE 0.9% 250 ML IVPB SCH ×2 (08:01→21:57)
[2018-02-03] MEDS: CEFEPIME 2 GM in SODIUM CHLORIDE 0.9% 50 ML IVPB SCH ×2 (08:01→21:57)
[2018-02-03] MEDS: methylPREDNISolone SOD SUCCI 40 MG/ML 1 ML VIAL IV SCH ×3 (08:02→23:34)
[2018-02-03] MEDS: INSULIN DETEMIR 100 UNIT/ML 10 ML VIAL SQ SCH ×2 (08:02→22:03)
[2018-02-03] MEDS: FUROSEMIDE 20 MG TAB PO SCH (08:02)
[2018-02-03] MEDS: ATORVASTATIN 80 MG TAB PO SCH (08:02)
[2018-02-03] MEDS: LOSARTAN 50 MG TAB PO SCH (08:03)
[2018-02-03] MEDS: PANTOPRAZOLE 40 MG/10 ML VIAL IVP SCH (08:03)
[2018-02-03] MEDS: VARENICLINE 1 MG TAB PO SCH ×2 (08:03→21:56)
[2018-02-03] MEDS: BUDESONIDE 1 MG/2 ML NEBU INHALATION SCH ×2 (08:43→20:17)
[2018-02-03] MEDS: FORMOTEROL FUMARATE 20 MCG/2 ML NEBU INHALATION SCH ×2 (08:43→20:17)
[2018-02-03] MEDS: IPRATROPIUM-ALBUTEROL 3 ML NEB INHALATION SCH ×4 (08:43→20:17)
[2018-02-03 09:31] LABS: HCT 25.3 % (39.0-53.0); MCH 30.9 pg (25.0-35.0); MCHC 35.4 g/dL (31.0-37.0); MCV 87.3 fL (80.0-100.0); Mean Platelet Volume 7.6; Platelet Count 331 k/uL (150-450)
[2018-02-03 10:17] LABS: Anion Gap 8 mmol/L; Blood Urea Nitrogen 33 mg/dL (9-20); Calcium 7.8 mg/dL (8.4-10.2); Carbon Dioxide 27 mmol/L (22-30); Chloride 103 mmol/L (98-107); Glucose 147 mg/dL (74-99); Sodium 138 mmol/L (137-145)
[2018-02-03 10:56] LABS: Band Neutrophils % 5 %; Metamyelocytes % 4 %; Myelocytes % 2 %; Neutrophils % (M) 79 %; Nucleated Red Blood Cells 1 /100 WBC (0-0); Total Cells Counted 200
[2018-02-03 10:58] LABS: Lymphocytes # (M) 1.83 k/uL (1.0-4.8); Metamyelocytes # (M) 1.05 k/uL (0); Monocytes # (M) 1.05 k/uL (0-1.0); Myelocytes # (M) 0.52 k/uL (0); WBC 26.2 k/uL (3.8-10.6)
--- NOTE | 2018-02-03 11:42 | P.PN ---
Subjective Progress Note Date: 02/03/18 63-year-old male who presented to the emergency room with a chief complaint of shortness of breath. The patient states he originally went to urgent care and was told he possibly was having a COPD exacerbation and was referred to the emergency room. Patient admits to sputum production. Admits to feeling feverish. Temperature when he presented to the emergency room was 100.8. Patient denies chest pain or pressure. Denies palpitations. Denies pain or discomfort. Denies nausea or vomiting. The patient states he was exposed to someone with influenza approximately one week ago. Testing for influenza was negative. The patient has a history of COPD, diabetes mellitus type 2, hyperlipidemia, hypertension, and hypothyroidism. He also has a history of a hemorrhagic CVA that required surgical evacuation at [facility]. He was also diagnosed with shingles approximately 6 months ago. Patient is a history of stent placement. He is a former cigarette smoker. Chest x-ray: Findings suggestive of underlying COPD and chronic left hemidiaphragm elevation/left basilar atelectasis. No acute cardiopulmonary process. Laboratory data: WBC 14.8. Hemoglobin 15.9. Platelet count 232. Sodium 136. Potassium 4.0. B UN 18. Creatinine 0.79. Glucose 271. Lactic acid 1.5. Urinalysis reveals: Trace proteinuria, 4+ glucose, 1+ ketones The patient was admitted to the hospital under the care of Dr. Galeana. Consultations were placed to pulmonary. His blood sugars were significantly elevated last night with readings over 600. He was started on insulin drip. 01/26/2018 Patient examined at the bedside on rounds with Dr. Galeana. Patient remains on an insulin drip as his blood sugars have been ranging between 200 and 300. Patient remains on Solu-Medrol: 60 mg IV every 6 hours. Patient states he does not feel short of breath at rest but he reports dyspnea with minimal exertion. He remains on 2 L nasal cannula with oxygen saturations greater then 92%. Patient is asking about obtaining home oxygen. Explained to patient we will evaluate for home oxygen closer to the time of discharge. The patient is scheduled for bronchoscopy with Dr. Lee on Wednesday. 01/27/2018 Patient examined at the bedside on rounds with Dr. Galeana. Patient remains on Solu-Medrol: 60 mg IV every 6 hours. Patient remains on insulin drip. Blood sugars recently ranging from 123-211. Patient states he does not feel short of breath at rest but he reports dyspnea with minimal exertion. On 2 L NC with oxygen saturations greater than 92%. Blood pressure 133/83. Heart rate in the 90s. The patient is scheduled for bronchoscopy with Dr. Lee on Wednesday. 01/28/2018 Patient examined at the bedside. Patient is scheduled for bronch with BAL today with Dr. Lee. Patient states his breathing does not feel much better today than yesterday. He states he is still SOB with exertion. He remains on 2L NC. Frequent coughing continues per patient. Blood glucose remains elevated with readings between 186-237. Denies nausea or vomiting. Denies chest pain or pressure. Denies pain or discomfort. 01/29/2018-Note per Dr. Galeana: Patient status post Bronch. Fungal OMAR and cultures are pending. Bronchial washing found rare leukocytes were epithelial cells few gram-positive cocci and rare gram-negative bacilli. Patient is on Levaquin currently. Previous sputum culture positive for Streptococcus pneumoniae, moderate. He indicates he is feeling slightly better with less shortness of breath. He is tolerating his diet. He remains on Solu-Medrol 60 mg every 6 hours 01/30/2018-Note per Dr. Galeana: Patient feels slightly better than the previous day. He denies any chest pain, nausea, vomiting, diarrhea, constipation. He has continually have shortness of breath bases exertion. He states it is better than previous day. Her maintenance Solu-Medrol 60 mg every 6 hourly. 01/31/2018 Patient seen and examined at the bedside. Patient states his breathing is still not back to baseline. He is coughing up a decent amount of yellow-green sputum. Patient continues to require oxygen. Currently wearing 3L NC with oxygen saturations greater than 92%. Patient denies chest pain or pressure. Patient is currently on Rocephin and fluconazole. He remains on IV steroids: Solu-Medrol 60 mg every 6 hours. Bronchial washings are positive for Streptococcus pneumoniae. 02/01/2018 Patient seen and examined at the bedside.Patient states his breathing is feeling better this morning. Patient states he still has a productive cough but it is improving. Patient is on 5L NC with oxygen saturations greater than 92%. Bronchial washings are positive for Streptococcus pneumoniae. He remains on IV steroids: Solu-Medrol 60 mg every 6 hours. His antibiotics were changed yesterday per pulmonary to Cefepime and Vancomycin. 02/02/2018 Patient seen and examined at the bedside. Patient states his breathing has improved and feels less labored. Reports continued sputum production. Remains on NC with oxygen saturations greater than 92%. Patients hemoglobin yesterday was 8.1. Repeat this AM is 6.6. Anemia studies ordered yesterday and are currently pending. Stool for occult blood was ordered yesterday but has not been collected. Patient reports he did not have a bowel movement yesterday, but had a bowel movement the day prior. Patient reports his bowel movement was normal. Patient denies any blood in the stool. Patient denies hemoptysis. Patient does report some abdominal distention. Denies any abdominal pain or discomfort. Rectal exam was performed at the bedside with no gross blood noted. Sample sent to the lab for occult blood. 02/03/2018 Patient seen and examined at the bedside. Patient was transfused 2 units RBC yesterday for a hemoglobin of 6.6. Repeat hemoglobin is 9.2. Stool for occult blood was negative. Patient underwent CT of abdomen and pelvis yesterday revealing large left greater than right rectus sheath hematoma extending into the left hemipelvis and inguinal canals. Rectus sheath component on the left measures 14.7 x 6.5cm with pelvic component measuring 5.8 x 11 cm. Right sided rectus sheath component is much smaller and measures 7.7cm in length. Patient was evaluated by Dr. Caballero. No surgical intervention at this time. Patient complains of abdominal pain this morning worsened by movement. Abdominal binder was recommended per general surgery. Patient remains on IV steroids: 40mg q 8 hours. Blood sugars are better controlled ranging from 119-159. Insulin was adjusted yesterday. Objective - Vital Signs Vital signs: Vital Signs Temp 96.6 F L 02/03/18 07:00 Pulse 86 02/03/18 09:00 Resp 20 02/03/18 07:00 BP 161/83 02/03/18 07:00 Pulse Ox 93 L 02/03/18 07:00 Intake & Output 02/02/18 02/03/18 02/03/18 18:59 06:59 18:59 Intake Total 1540 550 200 Output Total 1850 350 Balance -310 200 200 Weight 75 kg Intake: Intake, IV Titration 300 50 Amount Cefepime 2 gm In Sodium 50 50 Chloride 0.9% 50 ml @ 100 mls/hr IVPB Q12HR [facility] Rx #:[id number] Vancomycin 1,500 mg In 250 Sodium Chloride 0.9% 250 ml @ 125 mls/hr IVPB Q12HR [facility] Rx#:[id number] Oral 500 200 Blood Product 1240 Rc As-1 Unit 310 [id number] Rc Pheresis As3 Unit 310 [id number] Output: Urine 1850 350 Other: Voiding Method Toilet # Voids 2 1 - Exam GENERAL: This is a 63-year-old male in no apparent distress at the time of examination. Pleasant and cooperative. HEENT: Head is atraumatic, normocephalic. Pupils are equal, round, and reactive to light. Sclerae anicteric. Conjunctivae are clear. Mucus membranes of the mouth are moist. Neck is supple. RESPIRATORY: Scattered expiratory wheezing noted, improving. No use of accessory muscles. Patient maintaining oxygen saturation greater than 92% on nasal cannula. No chest wall tenderness is noted on palpation or with deep breathing. CARDIOVASCULAR: Regular rate and rhythm. S1 and S2 noted. No JVD noted. No S3 or S4 noted. GASTROINTESTINAL: Abdomen soft and round. No pain or tenderness noted upon palpation of all 4 quadrants. Bowel sounds auscultated 4 quadrants. INTEGUMENTARY: Ecchymosis noted to right lower quadrant of abdomen. No cyanosis. No jaundice. No rashes noted. No cellulitis noted. EXTREMITIES: 2+ peripheral pulses. No evidence of peripheral edema. No calf tenderness noted. NEUROLOGIC: Cranial nerves II-XII intact. PSYCHIATRIC: Awake, alert, and oriented X 3. Appropriate affect. Intact judgement and insight. - Labs CBC & Chem 7: 02/03/18 09:01 02/03/18 09:01 Labs: Abnormal Lab Results - Last 24 Hours (Table) 02/02/18 02/02/18 02/02/18 Range/Units 07:47 09:10 10:22 WBC 24.6 H (3.8-10.6) k/uL RBC 2.22 L (4.30-5.90) m/uL Hgb 6.6 L* (13.0-17.5) gm/dL Hct 20.5 L (39.0-53.0) % Neutrophils # (Manual) 20.90 H 22.30 H (1.3-7.7) k/uL Metamyelocytes # (Man) 0.74 H 0.49 H (0) k/uL Myelocytes # (Manual) 0.98 H 0.74 H (0) k/uL Promyelocytes # (Man) 0.25 H 0.25 H (0) k/uL Nucleated RBCs (0-0) /100 WBC POC Glucose (mg/dL) (75-99) mg/dL Crossmatch See Detail 02/02/18 02/02/18 02/02/18 Range/Units 11:57 17:41 20:39 WBC 26.8 H* (3.8-10.6) k/uL RBC 2.99 L (4.30-5.90) m/uL Hgb 9.2 L D (13.0-17.5) gm/dL Hct 26.2 L (39.0-53.0) % Neutrophils # (Manual) 22.70 H (1.3-7.7) k/uL Metamyelocytes # (Man) 0.80 H (0) k/uL Myelocytes # (Manual) 0.54 H (0) k/uL Promyelocytes # (Man) (0) k/uL Nucleated RBCs 1 H (0-0) /100 WBC POC Glucose (mg/dL) 209 H 219 H (75-99) mg/dL Crossmatch 02/02/18 02/03/18 02/03/18 Range/Units 21:01 02:41 07:31 WBC (3.8-10.6) k/uL RBC (4.30-5.90) m/uL Hgb (13.0-17.5) gm/dL Hct (39.0-53.0) % Neutrophils # (Manual) (1.3-7.7) k/uL Metamyelocytes # (Man) (0) k/uL Myelocytes # (Manual) (0) k/uL Promyelocytes # (Man) (0) k/uL Nucleated RBCs (0-0) /100 WBC POC Glucose (mg/dL) 134 H 159 H 119 H (75-99) mg/dL Crossmatch Assessment and Plan Plan: ASSESSMENT: Acute exacerbation of chronic obstructive pulmonary disease complicated by purulent tracheobronchitis, s/p bronchoscopy with BAL Fever, tachycardia, and leukocytosis, present on admission, meets SIRS criteria , early sepsis ruled in, resolved Continued leukocytosis, maybe be secondary to steroids, can not exclude contributing infectious process Acute blood loss anemia due to rectus sheath hematoma extending into the hemipelvis and left inguinal canal, secondary to severe coughing, s/p tranfusion of 2 units RBC Diabetes mellitus, type II, hemoglobin A1c 12.9% Hyperglycemia, secondary to IV steroids and uncontrolled diabetes mellitus History of hemorrhagic CVA Essential hypertension Coronary artery disease with previous stent placement Hyperlipidemia Hypothyroidism History of nicotine dependence, in remission, patient states he quit smoking 9 months ago after smoking 1 pack per day for 30 years PLAN: Monitor hemoglobin Continue to hold aspirin. subcu heparin has been discontinued General surgery, Dr. Caballero, on consult. Appreciate recommendations and input Obtain abdominal binder Pulmonary on consult. Appreciate recommendations and input Continue IV steroids: 40 mg Q8 hours. Wean per pulmonary Continue Vancomycin and Cefepime per pulmonary patient educator on consult for uncontrolled diabetes Patient will require home oxygen at the time of discharge at 2L NC. Discontinue morphine as discharge is anticipated tomorrow Novolog sliding scale coverage Decrease levemir to 20 units at HS Home meds as appropriate Monitor labs GI prophylaxis: Protonix 40mg PO daily DVT prophylaxis: ULCIO hose to bilateral LE Monitor vital signs and address as appropriate Discharge planning: Patient to return home when stable Further recommendations pending patient's course Anticipate discharge home tomorrow Nurse practitioner note has been reviewed by physician. Signing provider agrees with the documented findings, assessment, and plan of care.
[2018-02-03 12:01] LABS: Glucose,Whole Blood 119 mg/dL (75-99)
[2018-02-03 12:18] LABS: Potassium 4.6 mmol/L (3.5-5.1)
[2018-02-03] MEDS ORDERED: INSULIN ASPART 100 UNIT/ML 1 ML 10 ML VIAL SQ SCH (12:30)
--- NOTE | 2018-02-03 15:51 | P.PN ---
Subjective Progress Note Date: 02/03/18 Principal diagnosis: Acute COPD exacerbation complicated by purulent tracheobronchitis This is a 63-year-old male who presents to the emergency department on January 24 with complaints of increasing shortness of breath. He was seen by me in the office recently treated with Depo-Medrol and extended prednisone burst and taper and some antibiotics. Despite that, he did not improve and that's why he ended up coming to the emergency room. In addition, between the time he saw me last in the ER visit, he apparently went to urgent care. He was found have a slight temperature elevation. He apparently was exposed to influenza was concern. His complaints include chest tightness wheezing coughing chest congestion and phlegm production. Chest x-ray was negative for infiltrate. It just showed COPD. I was concerned the last time I saw him that he might not get better and told to come to the emergency room and they did not. In fact, I think he would benefit from bronchoscopy BAL and airway examination. On 01/26/2018 seen in follow-up. He remains wheezy and congested. At times he is able to bring up some yellow phlegm, but for the most part his cough is nonproductive. Remains on 2 L per nasal cannula, with O2 sat at 92-96%. He is afebrile. Hemodynamically stable. He remains on a combination of Pulmicort, Perforomist, DuoNeb, Levaquin, and IV steroids. We'll proceed with bronchoscopy with BAL by Dr. Lee on Wednesday On 01/27/2018 patient seen in follow-up. He states his cough is a lot more productive today, with copious amounts of yellow sputum. Denies any fever or chills, remains bronchospastic and congested. He is wearing his oxygen intermittently, on 2 L per nasal cannula his O2 sat at 92%. He is afebrile. Blood and sputum culture are pending. Urine culture showed no growth. He continues on broad-spectrum antibiotics in the form of Levaquin, IV Solu-Medrol , Pulmicort, Perforomist, DuoNeb nebulized treatments. The plan is to proceed with bronchoscopy with BAL on Wednesday at 11:00. On 01/28/2018 patient seen in follow-up. Still bringing up large amount of yellow sputum, still feels congested, and wheezy. Continues on 2 L per nasal cannula with O2 sat at 93%. Afebrile, lung sounds are positive for diffuse wheezes, and rhonchi. Not much change since admission. We'll proceed with bronchoscopy today at 11 AM. The patient is seen again today 01/29/2018 in follow-up on the regular medical floor. He is awake and alert in no acute distress. He is doing better today as compared to yesterday. Still not quite back to his baseline. He did undergo bronchoscopy with BAL. Cultures are pending. Sputum culture from 01/25 was positive for Streptococcus pneumoniae. He remains on Levaquin. He has been afebrile. Hemodynamically stable. Maintaining good O2 saturations in the 90s on 3 L/m per nasal cannula. Progress note dated 01/30/2018 63-year-old male who was admitted with a diagnosis of COPD exacerbation. He had bronchoscopy with BAL therapeutic lavage on Wednesday. He is feeling a bit better. Certainly not back to baseline. Still complaining of coughing wheezing and shortness of breath. Is having a difficult time coughing up secretions. The patient has no fever or chills. He does cough up any phlegm, has a yellow-green color to it. He had thick secretions in his airways on bronchoscopy. No fever no chills. No nausea vomiting or diarrhea. On 01/31/2018 patient reports persistent wheezing, chest congestion, and only limited improvement since admission despite the maximize medical treatment, and bronchoscopy with BAL. The bronch wash cultures are positive for Streptococcus pneumoniae with sensitivity to ceftriaxone which the patient is currently on. Sputum culture from 01/25/2018 was positive for Streptococcus pneumonia and Barbie albicans. The patient is on oral Diflucan. Patient reports still being very dyspneic with minimal exertion even walking to the bathroom. He is afebrile, he continues on 3 L per nasal cannula with O2 sat at 95%. Hemodynamically stable. His cough is productive of large amount of yellow sputum. On 02/01/2018 patient reports improvement in his dyspnea, his lung sounds remain positive for scattered wheezes and rhonchi, however this is somewhat improved from previous exams. Still remains dyspneic with ambulation, remains on 3 L per nasal cannula with a pulse ox of 94%. Vital signs are stable. Today 's blood work shows WBC of 21.8, up slightly from 18.3 from yesterday's labs, hemoglobin is 8.1, sodium is 142, potassium is 4.6, CO2 is 32, BUN is 38, creatinine 0.78. Straight we started patient on cefepime and vancomycin, Rocephin has been discontinued. Clinically patient is improving, we'll continue current plan of treatment, continue nebulized treatments, continue Solu -Medrol. If he continues to improve, we'll start weaning the steroids down tomorrow. On 02/02/2018 patient seen in follow-up. He states his breathing is much improved, his lung sounds are negative for any wheezes, only a few scattered rhonchi. Patient has been afebrile, vital signs have been stable, he is on 3 L per nasal cannula with O2 sat 95%. On today's blood work it was noted that patient's hemoglobin has acutely decreased to 6.6 from 8.1 on yesterday's labs. His hemoglobin has been steadily trending down, patient was admitted with a hemoglobin of 15.9. Patient denies any black tarry stools, no hematemesis. There has been no obvious source of bleeding. Patient had been complaining of lower abdominal discomfort, with groin tenderness. His groins had been examined and were negative for any signs of hernias. Patient had been coughing extensively, particularly after his bronchoscopy. His right abdomen has been bruised, and at first it was thought to be related to his subcutaneous heparin injections. On today's CT of the abdomen there was a large left greater than right rectus sheath hematomas noted extending into the left hemipelvic and inguinal canals. The rectus sheath component of the left side measures 14.7 x 6.5 cm with pelvic component measuring approximately 5.8 x 11 cm. Right rectus sheath component is much smaller in size and measures 7.7 cm in length. Gen. surgery has been consulted. Patient is not currently on any anticoagulants. On admission his INR was within normal limits. Patient will be transfused with 2 units of packed red blood cells. His coughing has subsided, patient does not have the severe coughing spells like he did last week. On pulmonary standpoint he is improving. His white count is noted to be elevated at 24.6. Patient's brother wash cultures were positive for Streptococcus pneumonia, patient continues on combination of cefepime and vancomycin. No fevers. We will await input of the general surgeon regarding the large bilateral hematomas On 01/25/2018 patient seen in follow-up. From pulmonary standpoint she continues to improve, he is on room air, his pulse ox is 94%. He is afebrile, vital signs stable. Lung sounds overall improved, he denies Cough, worsening chest congestion, worsening dyspnea. He has been ambulating in the hallway, tolerating activity well. She was seen in consultation by surgical service in regards to his bilateral rectus sheath hematomas. Patient was transfused with 2 units of packed red blood cells, and his hemoglobin has responded appropriately, on today's blood work is hemoglobin is 9.0. She remains hemodynamically stable, denies any chest pain, denies any dyspnea. Surgery recommended. Abdominal binder compression of the abdomen to assist with tympanotomy. Objective - Vital Signs Vital signs: Vital Signs Temp 96.6 F L 02/03/18 07:00 Pulse 82 02/03/18 15:39 Resp 20 02/03/18 07:00 BP 161/83 02/03/18 07:00 Pulse Ox 94 L 02/03/18 08:52 Intake & Output 02/02/18 02/03/18 02/03/18 18:59 06:59 18:59 Intake Total 1540 550 520 Output Total 1850 350 Balance -310 200 520 Weight 75 kg Intake: Intake, IV Titration 300 50 Amount Cefepime 2 gm In Sodium 50 50 Chloride 0.9% 50 ml @ 100 mls/hr IVPB Q12HR [facility] Rx #:[id number] Vancomycin 1,500 mg In 250 Sodium Chloride 0.9% 250 ml @ 125 mls/hr IVPB Q12HR [facility] Rx#:[id number] Oral 500 520 Blood Product 1240 Rc As-1 Unit 310 [id number] Rc Pheresis As3 Unit 310 [id number] Output: Urine 1850 350 Other: Voiding Method Toilet # Voids 2 1 2 - Exam GENERAL EXAM: Alert, pleasant, 63-year-old white male comfortable in no apparent distress. HEAD: Normocephalic/atraumatic. EYES: Normal reaction of pupils, equal size. Conjunctiva pink, sclera white. NOSE: Clear with pink turbinates. THROAT: No erythema or exudates. NECK: No masses, no JVD, no thyroid enlargement, no adenopathy. CHEST: No chest wall deformity. Symmetrical expansion. LUNGS: Equal air entry with some scattered rhonchi, a few scattered wheezes CVS: Regular rate and rhythm, normal S1 and S2, no gallops, no murmurs, no rubs ABDOMEN: Soft, slightly tender over bilateral lower abdomen and groin areas. There is extensive bruising noted on right lower abdomen, and some bruising on the left lower abdomen. The abdomen is distended, but soft EXTREMITIES: No clubbing, no edema, no cyanosis, 2+ pulses and upper and lower extremities. MUSCULOSKELETAL: Muscle strength and tone normal. SPINE: No scoliosis or deformity SKIN: No rashes CENTRAL NERVOUS SYSTEM: Alert and oriented -3. No focal deficits, tone is normal in all 4 extremities. PSYCHIATRIC: Alert and oriented -3. Appropriate affect. Intact judgment and insight. - Labs CBC & Chem 7: 02/03/18 09:01 02/03/18 09:01 Labs: Abnormal Lab Results - Last 24 Hours (Table) 02/02/18 02/02/18 02/02/18 Range/Units 09:10 17:41 20:39 WBC 26.8 H* (3.8-10.6) k/uL RBC 2.99 L (4.30-5.90) m/uL Hgb 9.2 L D (13.0-17.5) gm/dL Hct 26.2 L (39.0-53.0) % RDW (11.5-15.5) % Neutrophils # (Manual) 22.70 H (1.3-7.7) k/uL Monocytes # (Manual) (0-1.0) k/uL Metamyelocytes # (Man) 0.80 H (0) k/uL Myelocytes # (Manual) 0.54 H (0) k/uL Nucleated RBCs 1 H (0-0) /100 WBC BUN (9-20) mg/dL Glucose (74-99) mg/dL POC Glucose (mg/dL) 219 H (75-99) mg/dL Calcium (8.4-10.2) mg/dL Crossmatch See Detail 02/02/18 02/03/18 02/03/18 Range/Units 21:01 02:41 07:31 WBC (3.8-10.6) k/uL RBC (4.30-5.90) m/uL Hgb (13.0-17.5) gm/dL Hct (39.0-53.0) % RDW (11.5-15.5) % Neutrophils # (Manual) (1.3-7.7) k/uL Monocytes # (Manual) (0-1.0) k/uL Metamyelocytes # (Man) (0) k/uL Myelocytes # (Manual) (0) k/uL Nucleated RBCs (0-0) /100 WBC BUN (9-20) mg/dL Glucose (74-99) mg/dL POC Glucose (mg/dL) 134 H 159 H 119 H (75-99) mg/dL Calcium (8.4-10.2) mg/dL Crossmatch 02/03/18 02/03/18 02/03/18 Range/Units 09:01 09:01 11:47 WBC 26.2 H* (3.8-10.6) k/uL RBC 2.90 L (4.30-5.90) m/uL Hgb 9.0 L (13.0-17.5) gm/dL Hct 25.3 L (39.0-53.0) % RDW 16.0 H (11.5-15.5) % Neutrophils # (Manual) 22.00 H (1.3-7.7) k/uL Monocytes # (Manual) 1.05 H (0-1.0) k/uL Metamyelocytes # (Man) 1.05 H (0) k/uL Myelocytes # (Manual) 0.52 H (0) k/uL Nucleated RBCs 1 H (0-0) /100 WBC BUN 33 H (9-20) mg/dL Glucose 147 H (74-99) mg/dL POC Glucose (mg/dL) 119 H (75-99) mg/dL Calcium 7.8 L (8.4-10.2) mg/dL Crossmatch Assessment and Plan Plan: Assessment: #1. COPD exacerbation complicated by purulent tracheobronchitis, she is status post bronchoscopy with BAL on 01/28/2018, bronchial washing cultures are positive for strep pneumoniae. Patient is currently on combination of cefepime and vancomycin, improving. #2. Acute blood loss anemia, related to large bilateral rectal sheath hematoma' s extending into the left hemipelvis and left inguinal canal. This is thought to be related to patient's severe coughing spells several days ago. His cough is now subsided .Today's hemoglobin is 6.6, patient was transfused with 2 units PRBCs #2. Diabetes mellitus #3. Hypothyroidism #4. Essential hypertension #5. Hyperlipidemia #6. History of CVA #7. History of shingles #8. Chronic hypoxemia Plan: Patient denies any worsening pulmonary complaints, continues to improve, he has been ambulating on room air, tolerating activity well. He was transfused with 2 units of packed red blood cells, hemoglobin has responded appropriately. Remains hemodynamically stable, surgery was noted. From pulmonary standpoint if patient continues to improve healing will be discharged home tomorrow. Antibiotics will be stopped at discharge, he has received multiple antibiotics during this hospital stay, including Rocephin, Levaquin, and most recently cefepime and vancomycin. Clinically improved from pulmonary standpoint, patient can be sent home on prednisone taper, and his nebulized treatments and inhalers. Follow-up with Dr. Lee in the office within a week after discharge I performed a history & physical examination of the patient and discussed their management with my nurse practitioner, Heike Corley. I reviewed the nurse practitioner's note and agree with the documented findings and plan of care. Lung sounds are positive for a few scattered rhonchi, and expiratory wheezes. The findings and the impression was discussed with the patient. I attest to the documentation by the nurse practitioner. Time with Patient: Less than 30
[2018-02-03 17:23] LABS: Glucose,Whole Blood 228 mg/dL (75-99)
[2018-02-03 21:07] LABS: Glucose,Whole Blood 282 mg/dL (75-99)
[2018-02-03] MEDS: FLUCONAZOLE 100 MG TAB PO SCH (21:56)
[2018-02-03] MEDS: ZOLPIDEM 5 MG TAB PO SCH (21:57)
[2018-02-03] MEDS: ACETAMINOPHEN TAB 325 MG TAB PO PRN (22:06)
[2018-02-04] MEDS: SODIUM CHLORIDE 0.9% 1,000 ML IV SCH (06:15)
[2018-02-04] MEDS: LEVOTHYROXINE 112 MCG TAB PO SCH (06:16)
[2018-02-04] MEDS: IPRATROPIUM-ALBUTEROL 3 ML NEB INHALATION SCH ×2 (07:04→11:04)
[2018-02-04] MEDS: BUDESONIDE 1 MG/2 ML NEBU INHALATION SCH (07:04)
[2018-02-04] MEDS: FORMOTEROL FUMARATE 20 MCG/2 ML NEBU INHALATION SCH (07:04)
[2018-02-04] MEDS: CEFEPIME 2 GM in SODIUM CHLORIDE 0.9% 50 ML IVPB SCH (07:28)
[2018-02-04] MEDS ORDERED: PANTOPRAZOLE 40 MG TABLET PO SCH (07:30)
[2018-02-04 07:32] LABS: Glucose,Whole Blood 219 mg/dL (75-99)
[2018-02-04] MEDS: INSULIN ASPART 100 UNIT/ML 1 ML 10 ML VIAL SQ SCH ×2 (08:23→12:54)
[2018-02-04] MEDS: methylPREDNISolone SOD SUCCI 40 MG/ML 1 ML VIAL IV SCH (08:23)
[2018-02-04] MEDS: INSULIN DETEMIR 100 UNIT/ML 10 ML VIAL SQ SCH (08:23)
[2018-02-04] MEDS: FUROSEMIDE 20 MG TAB PO SCH (08:24)
[2018-02-04] MEDS: LOSARTAN 50 MG TAB PO SCH (08:24)
[2018-02-04] MEDS: VANCOMYCIN 1,500 MG in SODIUM CHLORIDE 0.9% 250 ML IVPB SCH (08:24)
[2018-02-04] MEDS: VARENICLINE 1 MG TAB PO SCH (08:25)
[2018-02-04 09:32] LABS: Anisocytosis Slight; HCT 25.6 % (39.0-53.0); HGB 8.6 gm/dL (13.0-17.5); MCH 31.1 pg (25.0-35.0); MCHC 33.8 g/dL (31.0-37.0); Mean Platelet Volume 7.2; Platelet Count 364 k/uL (150-450); RBC 2.79 m/uL (4.30-5.90); RDW 16.4 % (11.5-15.5)
[2018-02-04 09:43] LABS: Anion Gap 9 mmol/L; Blood Urea Nitrogen 30 mg/dL (9-20); Carbon Dioxide 27 mmol/L (22-30); Chloride 101 mmol/L (98-107); Glucose 263 mg/dL (74-99); Potassium 4.4 mmol/L (3.5-5.1); Sodium 137 mmol/L (137-145)
[2018-02-04 09:52] LABS: Band Neutrophils % 4 %; Metamyelocytes % 3 %; Myelocytes % 3 %; Neutrophils % (M) 85 %; Nucleated Red Blood Cells 4 /100 WBC (0-0); Total Cells Counted 200
[2018-02-04 09:53] LABS: Lymphocytes # (M) 1.06 k/uL (1.0-4.8); WBC 26.5 k/uL (3.8-10.6)
[2018-02-04 09:54] LABS: Polychromasia Present
[2018-02-04] MEDS: ATORVASTATIN 80 MG TAB PO SCH (10:48)
[2018-02-04] MEDS: ACETAMINOPHEN TAB 325 MG TAB PO PRN (10:55)
--- NOTE | 2018-02-04 12:25 | P.DS ---
Providers Date of admission: 01/24/18 14:20 Expected date of discharge: 02/04/18 Attending physician: Lee Galeana Consults: 01/25/18 07:57 Consult Physician Routine Consulting Provider: Vik Lee Consult Reason/Comments: copd exac Do you want consulting provider notified?: Yes 02/02/18 08:48 Consult Physician Routine Consulting Provider: Hilary Cbaallero Consult Reason/Comments: acute blood loss, hgb 6.6 Do you want consulting provider notified?: Yes Primary care physician: Lee Galeana [facility] Course: 63-year-old male who presented to the emergency room with a chief complaint of shortness of breath. The patient states he originally went to urgent care and was told he possibly was having a COPD exacerbation and was referred to the emergency room. Patient admits to sputum production. Admits to feeling feverish. Temperature when he presented to the emergency room was 100.8. Patient denies chest pain or pressure. Denies palpitations. Denies pain or discomfort. Denies nausea or vomiting. The patient states he was exposed to someone with influenza approximately one week ago. Testing for influenza was negative. The patient has a history of COPD, diabetes mellitus type 2, hyperlipidemia, hypertension, and hypothyroidism. He also has a history of a hemorrhagic CVA that required surgical evacuation at [facility]. He was also diagnosed with shingles approximately 6 months ago. Patient is a history of stent placement. He is a former cigarette smoker. Chest x-ray: Findings suggestive of underlying COPD and chronic left hemidiaphragm elevation/left basilar atelectasis. No acute cardiopulmonary process. Laboratory data: WBC 14.8. Hemoglobin 15.9. Platelet count 232. Sodium 136. Potassium 4.0. B UN 18. Creatinine 0.79. Glucose 271. Lactic acid 1.5. Urinalysis reveals: Trace proteinuria, 4+ glucose, 1+ ketones The patient was admitted to the hospital under the care of Dr. Galeana. Consultations were placed to pulmonary. The patient was started on IV steroids and required high doses for most of his hospitalization. The patient continued to wheeze and experience SOB. He underwent bronchoscopy with BAL with Dr. Lee on 01/28/2018. Bronchial washings were positive for streptococcus pneumoniae. The patient received IV antibiotics during hospitalization. No antibiotics are recommended at the time of discharge per pulmonary. The patients WBC remains elevated which is likely due to IV steroids. The patients blood sugars were elevated and at one point were around 600. The patient required an insulin drip for a short period of time. He was transitioned to a sliding scale and levemir. The patients A1C is 12.9%. The family educator was consulted to evaluate the patient for his uncontrolled DM. The patient did require supplemental oxygen to maintain oxygen saturations greater than 92%. A home oxygen assessment was completed and the patient meets criteria for home oxygen. He is to wear 2L NC at home. On 02/02/2018 the patients hemoglobin was found to be 6.6. Prior to that it was 8.1. His hemoglobin on admission was 14-15 and was gradually decreasing each day. Rectal exam was performed at the bedside with no gross blood noted. Stool for occult blood was negative. Patient reported normal bowel movements. Patient underwent CT of abdomen and pelvis yesterday revealing large left greater than right rectus sheath hematoma extending into the left hemipelvis and inguinal canals. Rectus sheath component on the left measures 14.7 x 6.5cm with pelvic component measuring 5.8 x 11 cm. Right sided rectus sheath component is much smaller and measures 7.7cm in length. Patient was evaluated by Dr. Caballero. No surgical intervention at this time. An abdominal binder was recommended and ordered for the patient. He is to wear it as tolerated. The patient received 2 units RBC transfusion. Hemoglobin increased to the 9.0 range. His heparin subcu was subsequently discontinued and his daily aspirin was discontinued. The patient was deemed stable for discharge. No antibiotics were recommended at the time of discharge. A prescription for a prednisone taper was sent to the patients preferred pharmacy. He is to repeat CBC in 3 days. The patient is to continue to hold his aspirin until he is evaluated on an outpatient basis by his PCP. DISCHARGE DIAGNOSIS: Acute exacerbation of chronic obstructive pulmonary disease complicated by purulent tracheobronchitis, s/p bronchoscopy with BAL Fever, tachycardia, and leukocytosis, present on admission, meets SIRS criteria , early sepsis ruled in, resolved Continued leukocytosis, maybe be secondary to steroids, can not exclude contributing infectious process, ruled out per pulmonary Acute blood loss anemia due to rectus sheath hematoma extending into the hemipelvis and left inguinal canal, secondary to severe coughing, s/p tranfusion of 2 units RBC Diabetes mellitus, type II, hemoglobin A1c 12.9% Hyperglycemia, secondary to IV steroids and uncontrolled diabetes mellitus Hypoxia, requiring supplemental oxygen at 2L NC History of hemorrhagic CVA Essential hypertension Coronary artery disease with previous stent placement Hyperlipidemia Hypothyroidism History of nicotine dependence, in remission, patient states he quit smoking 9 months ago after smoking 1 pack per day for 30 years Nurse practitioner note has been reviewed by physician. Signing provider agrees with the documented findings, assessment, and plan of care. Plan - Discharge Summary Discharge Rx Participant: No New Discharge Prescriptions: New predniSONE See Taper PO DIRECTED #40 tab Continue Levothyroxine Sodium [Synthroid] 112 mcg PO DAILY Insulin Glargine [Lantus] 24 unit SQ HS Tiotropium Gates [Spiriva] 18 mcg INHALATION RT-DAILY Insulin Aspart [NovoLOG Flexpen] See Protocol SQ AC-TID Atorvastatin [Lipitor] 80 mg PO DAILY #30 tab Acetaminophen Tab [Tylenol] 650 mg PO Q4HR PRN #0 tab PRN Reason: Fever And/ Or Pain Albuterol Nebulized [Ventolin Nebulized] 2.5 mg INHALATION RT-QID PRN PRN Reason: Shortness Of Breath Budesonide-Formot 160-4.5 Mcg [Symbicort 160-4.5 Mcg Inhaler] 2 puff INHALATION RT-BID Furosemide [Lasix] 20 mg PO DAILY Losartan Potassium 100 mg PO DAILY Varenicline [Chantix Continuing Pack] 1 mg PO BID Albuterol Inhaler [Ventolin Hfa Inhaler] 1 - 2 puff INHALATION RT-Q6H PRN PRN Reason: Shortness Of Breath Discontinued Aspirin EC [Ecotrin Low Dose] 81 mg PO DAILY Ciprofloxacin HCl [Cipro] 500 mg PO Q12HR Depo-Medrol 80 mg IM ONCE predniSONE See Taper PO DIRECTED Discharge Medication List Insulin Aspart [NovoLOG Flexpen] See Protocol SQ AC-TID 12/21/14 [History] Insulin Glargine [Lantus] 24 unit SQ HS 12/21/14 [History] Levothyroxine Sodium [Synthroid] 112 mcg PO DAILY 12/21/14 [History] Tiotropium Gates [Spiriva] 18 mcg INHALATION RT-DAILY 12/21/14 [History] Atorvastatin [Lipitor] 80 mg PO DAILY #30 tab 12/24/14 [Rx] Acetaminophen Tab [Tylenol] 650 mg PO Q4HR PRN #0 tab 09/13/15 [Rx] Albuterol Inhaler [Ventolin Hfa Inhaler] 1 - 2 puff INHALATION RT-Q6H PRN [History] Albuterol Nebulized [Ventolin Nebulized] 2.5 mg INHALATION RT-QID PRN 01/24/18 [ History] Budesonide-Formot 160-4.5 Mcg [Symbicort 160-4.5 Mcg Inhaler] 2 puff INHALATION RT-BID 01/24/18 [History] Furosemide [Lasix] 20 mg PO DAILY 01/24/18 [History] Losartan Potassium 100 mg PO DAILY 01/24/18 [History] Varenicline [Chantix Continuing Pack] 1 mg PO BID 01/24/18 [History] predniSONE See Taper PO DIRECTED #40 tab 02/03/18 [Rx] Follow up Appointment(s)/Referral(s): Vik Lee DO [Doctor of Osteopathic Medicine] - 1 Week Lee Galeana MD [Primary Care Provider] - 1 Week Hilary Caballero DO [Doctor of Osteopathic Medicine] - 1 Week Ambulatory/Diagnostic Orders: Complete Blood Count w/diff [LAB.AMB] Time Frame: 3 Days, Location: Determined By Patient Patient Instructions/Handouts: Chronic Lung Disease and Infection Prevention ( DC) Activity/Diet/Wound Care/Special Instructions: Do not take your aspirin until you are evaluated by Dr. Galeana or Dr. Leigh Avoid NSAIDS such as aleve, motrin, ibuprofen, etc. Oxygen at 2L Wear your abdominal binder as tolerated Cardiac,diabetic diet Activity as tolerated.
[2018-02-04 12:42] LABS: Glucose,Whole Blood 307 mg/dL (75-99)
[2018-02-04 15:31] VITALS: BP 130/78; PULSE 94; RESP 18; TEMP 97.2
--- NOTE | 2018-02-04 15:37 | P.PN ---
Subjective Progress Note Date: 02/04/18 Principal diagnosis: Acute COPD exacerbation complicated by purulent tracheobronchitis This is a 63-year-old male who presents to the emergency department on January 24 with complaints of increasing shortness of breath. He was seen by me in the office recently treated with Depo-Medrol and extended prednisone burst and taper and some antibiotics. Despite that, he did not improve and that's why he ended up coming to the emergency room. In addition, between the time he saw me last in the ER visit, he apparently went to urgent care. He was found have a slight temperature elevation. He apparently was exposed to influenza was concern. His complaints include chest tightness wheezing coughing chest congestion and phlegm production. Chest x-ray was negative for infiltrate. It just showed COPD. I was concerned the last time I saw him that he might not get better and told to come to the emergency room and they did not. In fact, I think he would benefit from bronchoscopy BAL and airway examination. On 01/26/2018 seen in follow-up. He remains wheezy and congested. At times he is able to bring up some yellow phlegm, but for the most part his cough is nonproductive. Remains on 2 L per nasal cannula, with O2 sat at 92-96%. He is afebrile. Hemodynamically stable. He remains on a combination of Pulmicort, Perforomist, DuoNeb, Levaquin, and IV steroids. We'll proceed with bronchoscopy with BAL by Dr. Lee on Wednesday On 01/27/2018 patient seen in follow-up. He states his cough is a lot more productive today, with copious amounts of yellow sputum. Denies any fever or chills, remains bronchospastic and congested. He is wearing his oxygen intermittently, on 2 L per nasal cannula his O2 sat at 92%. He is afebrile. Blood and sputum culture are pending. Urine culture showed no growth. He continues on broad-spectrum antibiotics in the form of Levaquin, IV Solu-Medrol , Pulmicort, Perforomist, DuoNeb nebulized treatments. The plan is to proceed with bronchoscopy with BAL on Wednesday at 11:00. On 01/28/2018 patient seen in follow-up. Still bringing up large amount of yellow sputum, still feels congested, and wheezy. Continues on 2 L per nasal cannula with O2 sat at 93%. Afebrile, lung sounds are positive for diffuse wheezes, and rhonchi. Not much change since admission. We'll proceed with bronchoscopy today at 11 AM. The patient is seen again today 01/29/2018 in follow-up on the regular medical floor. He is awake and alert in no acute distress. He is doing better today as compared to yesterday. Still not quite back to his baseline. He did undergo bronchoscopy with BAL. Cultures are pending. Sputum culture from 01/25 was positive for Streptococcus pneumoniae. He remains on Levaquin. He has been afebrile. Hemodynamically stable. Maintaining good O2 saturations in the 90s on 3 L/m per nasal cannula. Progress note dated 01/30/2018 63-year-old male who was admitted with a diagnosis of COPD exacerbation. He had bronchoscopy with BAL therapeutic lavage on Wednesday. He is feeling a bit better. Certainly not back to baseline. Still complaining of coughing wheezing and shortness of breath. Is having a difficult time coughing up secretions. The patient has no fever or chills. He does cough up any phlegm, has a yellow-green color to it. He had thick secretions in his airways on bronchoscopy. No fever no chills. No nausea vomiting or diarrhea. On 01/31/2018 patient reports persistent wheezing, chest congestion, and only limited improvement since admission despite the maximize medical treatment, and bronchoscopy with BAL. The bronch wash cultures are positive for Streptococcus pneumoniae with sensitivity to ceftriaxone which the patient is currently on. Sputum culture from 01/25/2018 was positive for Streptococcus pneumonia and Barbie albicans. The patient is on oral Diflucan. Patient reports still being very dyspneic with minimal exertion even walking to the bathroom. He is afebrile, he continues on 3 L per nasal cannula with O2 sat at 95%. Hemodynamically stable. His cough is productive of large amount of yellow sputum. On 02/01/2018 patient reports improvement in his dyspnea, his lung sounds remain positive for scattered wheezes and rhonchi, however this is somewhat improved from previous exams. Still remains dyspneic with ambulation, remains on 3 L per nasal cannula with a pulse ox of 94%. Vital signs are stable. Today 's blood work shows WBC of 21.8, up slightly from 18.3 from yesterday's labs, hemoglobin is 8.1, sodium is 142, potassium is 4.6, CO2 is 32, BUN is 38, creatinine 0.78. Straight we started patient on cefepime and vancomycin, Rocephin has been discontinued. Clinically patient is improving, we'll continue current plan of treatment, continue nebulized treatments, continue Solu -Medrol. If he continues to improve, we'll start weaning the steroids down tomorrow. On 02/02/2018 patient seen in follow-up. He states his breathing is much improved, his lung sounds are negative for any wheezes, only a few scattered rhonchi. Patient has been afebrile, vital signs have been stable, he is on 3 L per nasal cannula with O2 sat 95%. On today's blood work it was noted that patient's hemoglobin has acutely decreased to 6.6 from 8.1 on yesterday's labs. His hemoglobin has been steadily trending down, patient was admitted with a hemoglobin of 15.9. Patient denies any black tarry stools, no hematemesis. There has been no obvious source of bleeding. Patient had been complaining of lower abdominal discomfort, with groin tenderness. His groins had been examined and were negative for any signs of hernias. Patient had been coughing extensively, particularly after his bronchoscopy. His right abdomen has been bruised, and at first it was thought to be related to his subcutaneous heparin injections. On today's CT of the abdomen there was a large left greater than right rectus sheath hematomas noted extending into the left hemipelvic and inguinal canals. The rectus sheath component of the left side measures 14.7 x 6.5 cm with pelvic component measuring approximately 5.8 x 11 cm. Right rectus sheath component is much smaller in size and measures 7.7 cm in length. Gen. surgery has been consulted. Patient is not currently on any anticoagulants. On admission his INR was within normal limits. Patient will be transfused with 2 units of packed red blood cells. His coughing has subsided, patient does not have the severe coughing spells like he did last week. On pulmonary standpoint he is improving. His white count is noted to be elevated at 24.6. Patient's brother wash cultures were positive for Streptococcus pneumonia, patient continues on combination of cefepime and vancomycin. No fevers. We will await input of the general surgeon regarding the large bilateral hematomas On 01/25/2018 patient seen in follow-up. From pulmonary standpoint she continues to improve, he is on room air, his pulse ox is 94%. He is afebrile, vital signs stable. Lung sounds overall improved, he denies Cough, worsening chest congestion, worsening dyspnea. He has been ambulating in the hallway, tolerating activity well. She was seen in consultation by surgical service in regards to his bilateral rectus sheath hematomas. Patient was transfused with 2 units of packed red blood cells, and his hemoglobin has responded appropriately, on today's blood work is hemoglobin is 9.0. She remains hemodynamically stable, denies any chest pain, denies any dyspnea. Surgery recommended. Abdominal binder compression of the abdomen to assist with tympanotomy. On 02/04/2018 patient continues to improve. Less chest congestion, less wheezing, less dyspnea. He was noted to desaturate with ambulation, down to 85% , he will need home oxygen which has been arranged form. Lung sounds are negative for any wheezing, rhonchi or rales. Denies any fever, chills or chest pain. His abdominal binder in place for his bilateral rectus sheath hematomas, his hemoglobin today is 8.6, vital signs are stable, hemodynamically stable. No surgical intervention was indicated at this time. From pulmonary standpoint patient is stable for discharge home today. No need for outpatient antibiotics , patient has completed a course of Levaquin, Rocephin, cefepime and vancomycin. Objective - Vital Signs Vital signs: Vital Signs Temp 96.5 F L 02/04/18 06:40 Pulse 90 02/04/18 11:14 Resp 20 02/04/18 06:40 BP 149/83 02/04/18 06:40 Pulse Ox 90 L 02/04/18 11:07 Intake & Output 02/03/18 02/04/18 02/04/18 18:59 06:59 18:59 Intake Total 520 100 530 Balance 520 100 530 Intake: Intake, IV Titration 50 Amount Cefepime 2 gm In Sodium 50 Chloride 0.9% 50 ml @ 100 mls/hr IVPB Q12HR [facility] Rx #:[id number] Oral 520 100 480 Other: Voiding Method Toilet Toilet # Voids 2 1 2 # Bowel Movements 1 2 - Exam GENERAL EXAM: Alert, pleasant, 63-year-old white male comfortable in no apparent distress. HEAD: Normocephalic/atraumatic. EYES: Normal reaction of pupils, equal size. Conjunctiva pink, sclera white. NOSE: Clear with pink turbinates. THROAT: No erythema or exudates. NECK: No masses, no JVD, no thyroid enlargement, no adenopathy. CHEST: No chest wall deformity. Symmetrical expansion. LUNGS: Equal air entry, no rhonchi, no wheezes or rales CVS: Regular rate and rhythm, normal S1 and S2, no gallops, no murmurs, no rubs ABDOMEN: Soft, slightly tender over bilateral lower abdomen and groin areas. There is extensive bruising noted on right lower abdomen, and some bruising on the left lower abdomen. The abdomen is distended, but soft. Abdominal binder in place EXTREMITIES: No clubbing, no edema, no cyanosis, 2+ pulses and upper and lower extremities. MUSCULOSKELETAL: Muscle strength and tone normal. SPINE: No scoliosis or deformity SKIN: No rashes CENTRAL NERVOUS SYSTEM: Alert and oriented -3. No focal deficits, tone is normal in all 4 extremities. PSYCHIATRIC: Alert and oriented -3. Appropriate affect. Intact judgment and insight. - Labs CBC & Chem 7: 02/04/18 09:04 02/04/18 09:04 Labs: Abnormal Lab Results - Last 24 Hours (Table) 02/03/18 02/03/18 02/04/18 Range/Units 17:17 20:54 07:21 WBC (3.8-10.6) k/uL RBC (4.30-5.90) m/uL Hgb (13.0-17.5) gm/dL Hct (39.0-53.0) % RDW (11.5-15.5) % Neutrophils # (Manual) (1.3-7.7) k/uL Metamyelocytes # (Man) (0) k/uL Myelocytes # (Manual) (0) k/uL Nucleated RBCs (0-0) /100 WBC BUN (9-20) mg/dL Creatinine (0.66-1.25) mg/dL Glucose (74-99) mg/dL POC Glucose (mg/dL) 228 H 282 H 219 H (75-99) mg/dL Calcium (8.4-10.2) mg/dL 02/04/18 02/04/18 02/04/18 Range/Units 09:04 09:04 12:35 WBC 26.5 H* (3.8-10.6) k/uL RBC 2.79 L (4.30-5.90) m/uL Hgb 8.6 L (13.0-17.5) gm/dL Hct 25.6 L (39.0-53.0) % RDW 16.4 H (11.5-15.5) % Neutrophils # (Manual) 23.50 H (1.3-7.7) k/uL Metamyelocytes # (Man) 0.80 H (0) k/uL Myelocytes # (Manual) 0.80 H (0) k/uL Nucleated RBCs 4 H (0-0) /100 WBC BUN 30 H (9-20) mg/dL Creatinine 0.65 L (0.66-1.25) mg/dL Glucose 263 H (74-99) mg/dL POC Glucose (mg/dL) 307 H (75-99) mg/dL Calcium 8.0 L (8.4-10.2) mg/dL Assessment and Plan Plan: Assessment: #1. COPD exacerbation complicated by purulent tracheobronchitis, she is status post bronchoscopy with BAL on 01/28/2018, bronchial washing cultures are positive for strep pneumoniae. Patient is currently on combination of cefepime and vancomycin, improving. #2. Acute blood loss anemia, related to large bilateral rectal sheath hematoma' s extending into the left hemipelvis and left inguinal canal. This is thought to be related to patient's severe coughing spells several days ago. His cough is now subsided .Today's hemoglobin is 6.6, patient was transfused with 2 units PRBCs #2. Diabetes mellitus #3. Hypothyroidism #4. Essential hypertension #5. Hyperlipidemia #6. History of CVA #7. History of shingles #8. Chronic hypoxemia Plan: Patient is improving, tolerating activity well, she will need home oxygen as he was found to desaturate with ambulation. Patient's antibiotics can be discontinued at this time, patient has been adequately treated with multiple rounds of antibiotics including Rocephin, Levaquin, cefepime and vancomycin. Sputum well to treatments. Stable for discharge home today on prednisone taper , and his maintenance inhalers and nebulized treatments. Follow-up appointment with Dr. Lee 02/09/2018 at 10:45 in the morning I performed a history & physical examination of the patient and discussed their management with my nurse practitioner, Heike Corley. I reviewed the nurse practitioner's note and agree with the documented findings and plan of care. Lung sounds are negative for any rhonchi, wheezes or rales. The findings and the impression was discussed with the patient. I attest to the documentation by the nurse practitioner. Time with Patient: Less than 30
[2018-02-05] MEDS ORDERED: VANCOMYCIN TROUGH DUE 1 EACH MISC MISCELLANE ONE (08:00)
== END 2018-02-04 15:59 | disposition home or self-care (01) | DRG 854 ==
LOC: EC 12:55 → SUPCPDRO 12:55 → 5MS5E 14:20 → 4MS4W 14:41
PROVIDERS: ADMIT Family Medicine; ATTEND Family Medicine
PROC: 0B9D8ZX Drainage of Right Middle Lung Lobe, Via Natural or Artificial Opening Endoscopic, Diagnostic (ICD-10-PCS; principal; 2018-01-28 11:00)
PROC: 30233N1 Transfusion of Nonautologous Red Blood Cells into Peripheral Vein, Percutaneous Approach (ICD-10-PCS; 2018-02-02)
DX: A41.9 Sepsis, unspecified organism (principal); D62 Acute posthemorrhagic anemia; E11.65 Type 2 diabetes mellitus with hyperglycemia; J39.8 Other specified diseases of upper respiratory tract; J44.0 Chronic obstructive pulmonary disease with (acute) lower respiratory infection; T17.990A Other foreign object in respiratory tract, part unspecified in causing asphyxiation, initial encounter; J44.1 Chronic obstructive pulmonary disease with (acute) exacerbation; E03.9 Hypothyroidism, unspecified; E78.5 Hyperlipidemia, unspecified; F17.210 Nicotine dependence, cigarettes, uncomplicated; I10 Essential (primary) hypertension; I25.10 Atherosclerotic heart disease of native coronary artery without angina pectoris; J20.9 Acute bronchitis, unspecified; R09.02 Hypoxemia; T38.0X5A Adverse effect of glucocorticoids and synthetic analogues, initial encounter; Z20.828 Contact with and (suspected) exposure to other viral communicable diseases; I25.2 Old myocardial infarction; Z79.4 Long term (current) use of insulin; Z79.51 Long term (current) use of inhaled steroids; Z79.899 Other long term (current) drug therapy; Z82.49 Family history of ischemic heart disease and other diseases of the circulatory system; Z82.5 Family history of asthma and other chronic lower respiratory diseases; Z83.0 Family history of human immunodeficiency virus [HIV] disease; Z83.3 Family history of diabetes mellitus; Z86.19 Personal history of other infectious and parasitic diseases; Z86.73 Personal history of transient ischemic attack (TIA), and cerebral infarction without residual deficits; Z95.5 Presence of coronary angioplasty implant and graft; M79.81 Nontraumatic hematoma of soft tissue; R58 Hemorrhage, not elsewhere classified
CPT/HCPCS: 31624; 36415; 71046; 74177; 80048; 80053; 80202; 81003; 82272; 82728; 82947; 83036; 83540; 83550; 83605; 84439; 84443; 85025; 85045; 85610; 85730; 86850; 86900; 86901; 86920; 87040; 87070; 87077; 87086; 87102; 87116; 87186; 87205; 87206; 87252; 87496; 87498; 87502; 87529; 87634; 87798; 88108; 88305; 89050; 93005; 94640; 94760; 96361; 96365; 99285

== ENCOUNTER → 2019-11-14 | Outpatient (CLI) | payer MEDICARE | END | disposition home or self-care (01) | LOC: LABWHC1 09:46 | PROVIDERS: ATTEND Nurse Practitioner Family | DX: E03.9 Hypothyroidism, unspecified (principal) | CPT/HCPCS: 36415; 84439; 84443 ==

== ENCOUNTER 2020-06-08 22:54 | Inpatient (IN) | payer MEDICARE ==
[2020-06-08] MEDS ORDERED: IPRATROPIUM-ALBUTEROL 3 ML NEB INHALATION STA (23:22)
[2020-06-08] MEDS ORDERED: AMPICILLIN-SULBACTAM 3 GM in SODIUM CHLORIDE 0.9% 100 ML IVPB STA (23:22)
[2020-06-08] MEDS ORDERED: SODIUM CHLORIDE 0.9% 1,000 ML IV ONE (23:23)
--- NOTE | 2020-06-08 23:49 | XR ---
EXAMINATION TYPE: XR chest 2V DATE OF EXAM: 06/08/2020 COMPARISON: 03/02/2019 HISTORY: Cough TECHNIQUE: 2 views FINDINGS: There is no heart failure nor confluent pneumonic infiltrate. Costophrenic angles are clear . Thoracic aorta is atheromatous. There is no pleural effusion. Bony thorax is intact. There is slight elevation of the left diaphragm. IMPRESSION: No active cardiopulmonary disease. No change.
--- NOTE | 2020-06-08 23:51 | XR ---
EXAMINATION TYPE: XR hand complete RT Right wrist 4 views DATE OF EXAM: 06/08/2020 COMPARISON: NONE HISTORY: Pain TECHNIQUE: Right hand 3 views. Right wrist 4 views. FINDINGS: Metacarpals are intact. I see no fracture nor dislocation. Joint spaces are normal. There i s some soft tissue swelling around the carpus. The carpal bones are intact. Joint spaces are fairly normal. There are no erosions. There is no sublu xation. The fingers appear intact. IMPRESSION: Soft tissue swelling around the carpus. No evidence of fracture of the hand. No evidence of wrist fracture.
[2020-06-09] LABS: Basophils # (A) 0.1 k/uL (0-0.2); Basophils % (A) 1 %; Eosinophils # (A) 0.4 k/uL (0-0.7); Eosinophils % (A) 3 %; HGB 15.5 gm/dL (13.0-17.5); Lymphocytes # (A) 2.1 k/uL (1.0-4.8); Lymphocytes % (A) 16 %; MCH 30.8 pg (25.0-35.0); MCHC 33.1 g/dL (31.0-37.0); Mean Platelet Volume 7.5; Monocytes % (A) 7 %; Neutrophils # (A) 9.6 k/uL (1.3-7.7); Neutrophils % (A) 73 %; Platelet Count 281 k/uL (150-450); RBC 5.05 m/uL (4.30-5.90); RDW 12.2 % (11.5-15.5); WBC 13.2 k/uL (3.8-10.6)
--- NOTE | 2020-06-09 00:07 | ED ---
General Adult HPI - General Chief complaint: Skin/Abscess/Foreign Body Stated complaint: Arm Infection Time Seen by Provider: 06/08/20 23:12 Source: patient, RN notes reviewed, old records reviewed Mode of arrival: ambulatory Limitations: no limitations - History of Present Illness Initial comments: Patient is a 65-year-old male who presents emergency Department today with chief complaint of a Bite on his right wrist today. Patient reports that since the past few hours after sustaining a Bite is had increased pain and redness and swelling involving the right wrist. Patient states he has full range of motion of the fingers and sensation of the fingers and thumb. Patient reports that this was his own cat bit him. Patient reports the cat is up-to-date on vaccines. Patient reports that he also is feeling short of breath he has a history of COPD and typically with walking long distances and going to the car to come to the emergency department he was getting more winded. He does use breathing treatments. Patient states that she has had no recorded fevers. Patient has had a history of stroke causing some right sided hand weakness but he states that he has more pain with squeezing his hand now and does seem to be slightly weaker due to pain. - Related Data Home Medications Medication Instructions Recorded Confirmed Insulin Aspart [NovoLOG Flexpen] See Protocol SQ AC-TID 12/21/14 01/24/18 Insulin Glargine [Lantus] 24 unit SQ HS 12/21/14 01/24/18 Levothyroxine Sodium [Synthroid] 112 mcg PO DAILY 12/21/14 01/24/18 Tiotropium [place] [Spiriva] 18 mcg INHALATION RT-DAILY 12/21/14 01/24/18 Albuterol Inhaler (Mhu) [Ventolin 1 - 2 puff INHALATION RT-Q6H PRN 01/24/18 01/24/18 Hfa Inhaler (Mhu)] Albuterol Nebulized [Ventolin 2.5 mg INHALATION RT-QID PRN 01/24/18 01/24/18 Nebulized] Budesonide-Formot 160-4.5 Mcg 2 puff INHALATION RT-BID 01/24/18 01/24/18 [Symbicort 160-4.5 Mcg Inhaler] Furosemide [Lasix] 20 mg PO DAILY 01/24/18 01/24/18 Losartan Potassium 100 mg PO DAILY 01/24/18 01/24/18 Varenicline [Chantix Continuing 1 mg PO BID 01/24/18 01/24/18 Pack] Previous Rx's Medication Instructions Recorded Atorvastatin [Lipitor] 80 mg PO DAILY #30 tab 12/24/14 Acetaminophen Tab [Tylenol] 650 mg PO Q4HR PRN #0 tab 09/13/15 predniSONE See Taper PO DIRECTED #40 tab 02/03/18 Insulin Aspart [NovoLOG Flexpen] 10 units SQ AC-TID 90 Days #3 02/04/18 dispenser Insulin Glargine [Lantus] 24 unit SQ HS 90 Days #3 vial 02/04/18 Allergies Allergy/AdvReac Type Severity Reaction Status Date / Time bupropion HCl Allergy Unknown Verified 06/08/20 23:06 [From Wellbutrin] Review of Systems ROS Statement: Those systems with pertinent positive or pertinent negative responses have been documented in the HPI. ROS Other: All systems not noted in ROS Statement are negative. Past Medical History Past Medical History: COPD, CVA/TIA, Diabetes Mellitus, Hyperlipidemia, Hypert ension, Thyroid Disorder Additional Past Medical History / Comment(s): Hemorrhagic CVA requiring evacuation surgically done at [facility], [facility] 6 months ago, COPD and chronic bronchitis, diabetes mellitus, hypertension, hyperlipidemia Last Myocardial Infarction Date:: unk History of Any Multi-Drug Resistant Organisms: None Reported Past Surgical History: Cholecystectomy, Heart Catheterization With Stent, Orthopedic Surgery Additional Past Surgical History / Comment(s): Right ankle ORIF, left arm medial nerve surgery 15 years ago; brain surgery due to hemorrhagic stroke Past Anesthesia/Blood Transfusion Reactions: No Reported Reaction Date of Last Stent Placement:: Past Psychological History: No Psychological Hx Reported Smoking Status: Former smoker Past Alcohol Use History: None Reported Past Drug Use History: None Reported - Past Family History Mother Family Medical History: Diabetes Mellitus Additional Family Medical History / Comment(s): at age 65 from diabetic complications Father Family Medical History: Myocardial Infarction (ME) Brother(s) Additional Family Medical History / Comment(s): He has 2 brothers, one from AIDS at age 56, one brother is alive and underwent CABG in his 50s. Sister(s) Family Medical History: COPD, Diabetes Mellitus Additional Family Medical History / Comment(s): He has 3 sisters, one from COPD, one is alive with diabetes, one alive and healthy. General Exam - General Exam Comments Initial Comments: 65 year old male, no distress. Limitations: no limitations General appearance: alert, in no apparent distress Head exam: Present: atraumatic, normocephalic, normal inspection Eye exam: Present: normal appearance, PERRL, EOMI. Absent: scleral icterus, conjunctival injection, periorbital swelling ENT exam: Present: normal exam, mucous membranes moist Neck exam: Present: normal inspection. Absent: tenderness, meningismus, lymphadenopathy Respiratory exam: Present: wheezes, rhonchi (Patient has wheezing and rhonchi bilaterally.). Absent: normal lung sounds bilaterally, respiratory distress, rales, stridor Cardiovascular Exam: Present: regular rate, normal rhythm, normal heart sounds. Absent: systolic murmur, diastolic murmur, rubs, gallop, clicks GI/Abdominal exam: Present: soft, normal bowel sounds. Absent: distended, tenderness, guarding, rebound, rigid Extremities exam: Present: normal inspection, full ROM, normal capillary refill. Absent: tenderness, pedal edema, joint swelling, calf tenderness Right Elbow exam: Present: normal inspection, full ROM Forearm Wrist exam: Present: normal inspection, full ROM Hand Wrist exam: Present: full ROM, swelling, erythema (Patient has swelling and erythema and 2 puncture wounds on the right wrist. Puncture wounds or any of the radial aspect of her wrist. He does have full range of motion and no severe pain with passive range of motion at this time.). Absent: normal inspection Neuro motor exam: Present: wrist extension intact, thumb opposition intact, thumb IP flexion intact, thumb adduction intact, fingers 2-5 abduction intact Back exam: Present: normal inspection Neurological exam: Present: alert Psychiatric exam: Present: normal affect, normal mood Skin exam: Present: warm, dry, intact, normal color. Absent: rash Course Vital Signs 06/08/20 06/08/20 06/09/20 23:03 23:55 00:12 Temperature 98.8 F Pulse Rate 118 H 107 H 104 H Respiratory 26 H Rate Blood Pressure 179/78 O2 Sat by Pulse 92 L Oximetry Medical Decision Making - Medical Decision Making 65-year-old male presents today for evaluation for concern for Bite to the right wrist. This is his own domestic cat. He does have history of diabetes and COPD. He presented today with also complains of shortness of breath and rho nchorous lung sounds after walking from the car. He states he sometimes uses supplemental oxygen but did not have that upon arriving to emergency department. He decided be slightly hypoxic 92%. Is given a DuoNeb treatment does report some improvement with his wheezing and coughing. Patient was started on IV antibiotic of Unasyn for concern for the Bite and the area of erythema was marked. He does have no significant pain with range of motion of the wrist at this time. I discussed the patient's comorbidities and concern for Fight infection spreading discussed admission with IV antibiotics at this time. Patient is agreeable to plan. is at bedside. Discussed case with Dr. Chatman. - Lab Data Result diagrams: 06/08/20 23:51 06/08/20 23:51 Lab Results 06/08/20 06/08/20 06/08/20 Range/Units 23:51 23:51 23:51 WBC 13.2 H (3.8-10.6) k/uL RBC 5.05 (4.30-5.90) m/uL Hgb 15.5 (13.0-17.5) gm/dL Hct 47.0 (39.0-53.0) % MCV 93.0 (80.0-100.0) fL MCH 30.8 (25.0-35.0) pg MCHC 33.1 (31.0-37.0) g/dL RDW 12.2 (11.5-15.5) % Plt Count 281 (150-450) k/uL Neutrophils % 73 % Lymphocytes % 16 % Monocytes % 7 % Eosinophils % 3 % Basophils % 1 % Neutrophils # 9.6 H (1.3-7.7) k/uL Lymphocytes # 2.1 (1.0-4.8) k/uL Monocytes # 1.0 (0-1.0) k/uL Eosinophils # 0.4 (0-0.7) k/uL Basophils # 0.1 (0-0.2) k/uL ESR 8 (0-15) mm/hr PT (9.0-12.0) sec INR (<1.2) APTT (22.0-30.0) sec Sodium 135 L (137-145) mmol/L Potassium 4.0 (3.5-5.1) mmol/L Chloride 102 (98-107) mmol/L Carbon Dioxide 25 (22-30) mmol/L Anion Gap 8 mmol/L BUN 16 (9-20) mg/dL Creatinine 0.90 (0.66-1.25) mg/dL Est GFR (CKD-EPI)AfAm >90 (>60 ml/min/1.73 sqM) Est GFR (CKD-EPI)NonAf 88 (>60 ml/min/1.73 sqM) Glucose 159 H (74-99) mg/dL Plasma Lactic Acid [place] 1.4 (0.7-2.0) mmol/L Calcium 9.2 (8.4-10.2) mg/dL Total Bilirubin 0.9 (0.2-1.3) mg/dL AST 25 (17-59) U/L ALT 15 (4-49) U/L Alkaline Phosphatase 80 (38-126) U/L C-Reactive Protein 10.2 H (<10.0) mg/L Total Protein 7.0 (6.3-8.2) g/dL Albumin 4.2 (3.5-5.0) g/dL 06/08/20 Range/Units 23:51 WBC (3.8-10.6) k/uL RBC (4.30-5.90) m/uL Hgb (13.0-17.5) gm/dL Hct (39.0-53.0) % MCV (80.0-100.0) fL MCH (25.0-35.0) pg MCHC (31.0-37.0) g/dL RDW (11.5-15.5) % Plt Count (150-450) k/uL Neutrophils % % Lymphocytes % % Monocytes % % Eosinophils % % Basophils % % Neutrophils # (1.3-7.7) k/uL Lymphocytes # (1.0-4.8) k/uL Monocytes # (0-1.0) k/uL Eosinophils # (0-0.7) k/uL Basophils # (0-0.2) k/uL ESR (0-15) mm/hr PT 10.9 (9.0-12.0) sec INR 1.1 (<1.2) APTT 25.8 (22.0-30.0) sec Sodium (137-145) mmol/L Potassium (3.5-5.1) mmol/L Chloride (98-107) mmol/L Carbon Dioxide (22-30) mmol/L Anion Gap mmol/L BUN (9-20) mg/dL Creatinine (0.66-1.25) mg/dL Est GFR (CKD-EPI)AfAm (>60 ml/min/1.73 sqM) Est GFR (CKD-EPI)NonAf (>60 ml/min/1.73 sqM) Glucose (74-99) mg/dL Plasma Lactic Acid [place] (0.7-2.0) mmol/L Calcium (8.4-10.2) mg/dL Total Bilirubin (0.2-1.3) mg/dL AST (17-59) U/L ALT (4-49) U/L Alkaline Phosphatase (38-126) U/L C-Reactive Protein (<10.0) mg/L Total Protein (6.3-8.2) g/dL Albumin (3.5-5.0) g/dL - Radiology Data Radiology results: report reviewed Soft tissue swelling around the purpose. No evidence of fracture on the hand. No evidence of wrist fracture. Chest x-ray shows no active cardiopulmonary disease. No change. Disposition Clinical Impression: Cat bite, COPD (chronic obstructive pulmonary disease), Diabetes Disposition: ADMITTED IP TO THIS HOSP Condition: Stable Is patient prescribed a controlled substance at d/c from ED?: No Referrals: Lee Galeana MD [Primary Care Provider] - 1-2 days Time of Disposition: 01:15
[2020-06-09] MEDS ORDERED: KETOROLAC 30 MG/ML 1 ML VIAL IVP STA (00:10)
[2020-06-09] MEDS ORDERED: MORPHINE SULFATE 4 MG/ML SYRINGE IVP STA (00:10)
[2020-06-09 00:11] LABS: INR 1.1 (<1.2); Partial Thromboplastin Time 25.8 sec (22.0-30.0); Prothrombin Time 10.9 sec (9.0-12.0)
[2020-06-09 00:12] LABS: ALT 15 U/L (4-49); AST 25 U/L (17-59); African American GFR (CKD) >90 (>60 ml/min/1.73 sqM); Albumin 4.2 g/dL (3.5-5.0); Alkaline Phosphatase 80 U/L (38-126); Anion Gap 8 mmol/L; Blood Urea Nitrogen 16 mg/dL (9-20); C Reactive Protein 10.2 mg/L (<10.0); Calcium 9.2 mg/dL (8.4-10.2); Carbon Dioxide 25 mmol/L (22-30); Chloride 102 mmol/L (98-107); Glucose 159 mg/dL (74-99); Non-African American GFR(CKD) 88 (>60 ml/min/1.73 sqM); Sodium 135 mmol/L (137-145); Total Bilirubin 0.9 mg/dL (0.2-1.3)
[2020-06-09] MEDS: SODIUM CHLORIDE 0.9% 1,000 ML IV SCH ×4 (00:26→23:36)
[2020-06-09 00:46] LABS: Erythrocyte Sedimentation Rate 8 mm/hr (0-15)
[2020-06-09] MEDS ORDERED: cefTRIAXone 1,000 MG VIAL (IM USE) IM STA (00:59)
[2020-06-09] MEDS ORDERED: IBUPROFEN 400 MG TAB PO PRN (01:04)
[2020-06-09] MEDS ORDERED: NALOXONE 0.4 MG/ML 1 ML VIAL IV PRN (01:04)
[2020-06-09] MEDS ORDERED: ACETAMINOPHEN TAB 325 MG TAB PO PRN (01:04)
[2020-06-09] MEDS: AMPICILLIN-SULBACTAM 3 GM in SODIUM CHLORIDE 0.9% 100 ML IVPB SCH ×4 (05:50→23:51)
[2020-06-09 06:15] LABS: Glucose,Whole Blood 167 mg/dL (75-99)
--- NOTE | 2020-06-09 11:14 | P.HPIM ---
History of Present Illness H&P Date: 06/09/20 Chief Complaint: Cat bite right hand wrist This is a 65-year-old male well-known to our practice who presents to the emergency room with a cat bite of BITES to the right hand and wrist. This gentleman has a known history of chronic obstructive pulmonary disease, hyperlipidemia myocardial infarction CVA hypertension diabetes TIA and subsequently had stroke Review of Systems Constitutional: Reports as per HPI Ears, nose, mouth and throat: Reports as per HPI Cardiovascular: Reports as per HPI Respiratory: Reports congestion, Reports cough Gastrointestinal: Reports as per HPI (Multiple Bite right wrist hand, cat) Integumentary: Reports color changes (Swelling, erythema), Reports wounds Past Medical History Past Medical History: COPD, CVA/TIA, Diabetes Mellitus, Hyperlipidemia, Hypertension, Thyroid Disorder Additional Past Medical History / Comment(s): Hemorrhagic CVA requiring evacuation surgically done at [facility], [email or web address] recovered approximately 6 months ago, COPD and chronic bronchitis, diabetes mellitus, hypertension, hyperlipidemia Last Myocardial Infarction Date:: unk History of Any Multi-Drug Resistant Organisms: None Reported Past Surgical History: Cholecystectomy, Heart Catheterization With Stent, Orthopedic Surgery Additional Past Surgical History / Comment(s): Right ankle ORIF, left arm medial nerve surgery 15 years ago; brain surgery due to hemorrhagic stroke, laproscopic cholecystectomy (2016) Past Anesthesia/Blood Transfusion Reactions: No Reported Reaction Date of Last Stent Placement:: Past Psychological History: No Psychological Hx Reported Smoking Status: Former smoker Past Alcohol Use History: None Reported Additional Past Alcohol Use History / Comment(s): Patient is a smoker of one pack per day for 30 years. He stopped 9 months ago He drinks alcohol infrequently. He lives at home with his and 7-year-old daughter. He also has 3 adult daughters that are healthy. 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 Past Drug Use History: None Reported - Past Family History Mother Family Medical History: Diabetes Mellitus Additional Family Medical History / Comment(s): at age 65 from diabetic complications Father Family Medical History: Myocardial Infarction ([place]) Brother(s) Additional Family Medical History / Comment(s): He has 2 brothers, one from AIDS at age 56, one brother is alive and underwent CABG in his 50s. Sister(s) Family Medical History: COPD, Diabetes Mellitus Additional Family Medical History / Comment(s): He has 3 sisters, one from COPD, one is alive with diabetes, one alive and healthy. Medications and Allergies Home Medications Medication Instructions Recorded Confirmed Type Atorvastatin [Lipitor] 80 mg PO DAILY #30 tab 12/24/14 06/09/20 Rx Losartan Potassium 100 mg PO DAILY 01/24/18 06/09/20 History Insulin Glargine [Lantus] 24 unit SQ HS 90 Days #3 vial 02/04/18 06/09/20 Rx Aspirin [Adult Low Dose Aspirin EC] 81 mg PO DAILY 06/09/20 06/09/20 History Fluticasone/Vilanterol [Breo 1 puff INHALATION DAILY 06/09/20 06/09/20 History Ellipta 100-25 Mcg Inhaler] Hydrochlorothiazide 12.5 mg PO DAILY 06/09/20 06/09/20 History [hydroCHLOROthiazide] Levothyroxine Sodium 150 mcg PO DAILY 06/09/20 06/09/20 History Umeclidinium [place] [Incruse 1 puff INHALATION DAILY 06/09/20 06/09/20 History Ellipta] Allergies Allergy/AdvReac Type Severity Reaction Status Date / Time bupropion HCl Allergy Unknown Verified 06/09/20 08:29 [From Wellbutrin] Physical Exam Osteopathic Statement: *. No significant issues noted on an osteopathic structural exam other than those noted in the History and Physical/Consult. Vitals: Vital Signs Temp Pulse Pulse Resp BP BP Pulse Ox 06/09/20 09:04 16 06/09/20 09:01 97.5 F L 85 16 139/80 90 L 06/09/20 03:00 97.5 F L 103 H 16 114/67 95 06/09/20 01:38 98.9 F 105 H 18 129/79 95 06/09/20 00:12 104 H 06/08/20 23:55 107 H 06/08/20 23:03 98.8 F 118 H 26 H 179/78 92 L Intake and Output 06/08/20 06/09/20 06/09/20 22:59 06:59 14:59 Intake Total 1100 Balance 1100 Intake: Intake, IV Titration 1100 Amount Ampicillin-Sulbactam 3 gm 100 In Sodium Chloride 0.9% 100 ml @ 200 mls/hr IVPB ONCE STA Rx#:[id number] Sodium Chloride 0.9% 1, 1000 000 ml @ 999 mls/hr IV . Q1H1M ONE Rx#:[id number] Oral 0 Other: Voiding Method Toilet # Voids 1 Weight 77.111 kg General: [Patient awake, alert and oriented times 3. Patient in no acute distress.] HEENT: [PERRL. EOMI. No pharyngeal erythema or exudate.] Neck: [No adenopathy.] Cardiac: [Heart regular in rate and rhythm. No S3. No S4. No clicks, rubs. No murmur.] Lungs: [Clear to auscultation bilaterally.] Abdomen: [No mass. No organomegaly. Bowel sounds presnt and normoactive in all 4 quadrants.] Extremes: Volar aspect of right hand wrist has multiple punctures, erythema and swelling from mid palm to the mid right forearm : Normal male genitalia Musculoskeletal: [No joint erythema, edema or tenderness.] Skin: [No rash.] Neurologic: [No lateralizing deficits. CN II - XII grossly intact.] Lymphatic: [No adenopathy.] Results CBC & Chem 7: 06/08/20 23:51 06/08/20 23:51 Labs: Abnormal Lab Results - Last 24 Hours (Table) 06/08/20 06/08/20 06/09/20 Range/Units 23:51 23:51 06:14 WBC 13.2 H (3.8-10.6) k/uL Neutrophils # 9.6 H (1.3-7.7) k/uL Sodium 135 L (137-145) mmol/L Glucose 159 H (74-99) mg/dL POC Glucose (mg/dL) 167 H (75-99) mg/dL C-Reactive Protein 10.2 H (<10.0) mg/L Thrombosis Risk Factor Assmnt - Choose All That Apply Any of the Below Risk Factors Present?: Yes Each Factor Represents 1 point: Abnormal pulmonary function (COPD) Other Risk Factors: Yes Each Risk Factor Represents 2 Points: Age 61-74 years Other congenital or acquired thrombophilia - If yes, enter type in comment: No Thrombosis Risk Factor Assessment Total Risk Factor Score: 3 Thrombosis Risk Factor Assessment Level: Moderate Risk Assessment and Plan (1) COPD (chronic obstructive pulmonary disease) Current Visit: Yes Status: Acute Code(s): J44.9 - CHRONIC OBSTRUCTIVE PULMONARY DISEASE, UNSPECIFIED SNOMED Code(s): 86994969 (2) Cat bite Current Visit: Yes Status: Acute Code(s): W55.01XA - BITTEN BY CAT, INITIAL ENCOUNTER SNOMED Code(s): 791417757 (3) Diabetes Current Visit: Yes Status: Acute Code(s): E11.9 - TYPE 2 DIABETES MELLITUS WITHOUT COMPLICATIONS SNOMED Code(s): 37694889 (4) Acute exacerbation of chronic obstructive airways disease Current Visit: No Status: Acute Code(s): J44.1 - CHRONIC OBSTRUCTIVE PULMONARY DISEASE W (ACUTE) EXACERBATION SNOMED Code(s): 749543943 (5) Acute exacerbation of chronic obstructive pulmonary disease (COPD) Current Visit: No Status: Acute Code(s): J44.1 - CHRONIC OBSTRUCTIVE PULMONARY DISEASE W (ACUTE) EXACERBATION SNOMED Code(s): 408503716 (6) CVA (cerebral vascular accident) Current Visit: No Status: Acute Code(s): I63.9 - CEREBRAL INFARCTION, UNSPECIFIED SNOMED Code(s): 734562940 Plan: Patient has a known history of heart disease chronic obstructive pulmonary disease history of tobacco use high blood pressure Was bitten by his cat last evening multiple puncture wounds to the volar aspect of the right hand and wrist with erythema and edema Currently on IV Unasyn Tentatively ordered a bone scan right hand Suspect tenosynovitis has pain with passive motion Consultation with orthopedic surgery Dr. Laurent Harmon notified Patient is also a diabetic Time with Patient: Greater than 30
--- NOTE | 2020-06-09 11:30 | P.CNOR ---
History of Present Illness - [facility] Consult date: 06/09/20 Consult reason: other (Right hand infection) History of present illness: Patient is a very pleasant [id number] male whose presented to the hospital in regards to right hand swelling after cat bite. Patient had bitten by his cat at home multiple times however this was the first time he says that it's gotten infected. He says he's been bitten about 17 times. All by the same. The patient says that he started noticing swelling over the past couple of days and redness. He presented to emergency room and was a 7 infection and was started on antibiotics. He says that today the redness seems much improved. He said that initially was significant defined over the dorsum of his right wrist extending up his forearm. There is an outline at the area and he says it is much improved. He feels that he can move his fingers well without any problem. He does not have any severe pain in his elbow or hand or fingers. He denies any fevers or chills. He is currently on Unasyn. Review of Systems Positive history of diabetes denies any fevers chills or night sweats. He adm its to multiple bites from his same cat in the past. Otherwise as per HPI Past Medical History Past Medical History: COPD, CVA/TIA, Diabetes Mellitus, Hyperlipidemia, Hypertension, Thyroid Disorder Additional Past Medical History / Comment(s): Hemorrhagic CVA requiring evacuation [facility] recovered approximately 6 months ago, COPD and chronic bronchitis, diabetes mellitus, hypertension, hyperlipidemia Last Myocardial Infarction Date:: unk History of Any Multi-Drug Resistant Organisms: None Reported Past Surgical History: Cholecystectomy, Heart Catheterization With Stent, Orthopedic Surgery Additional Past Surgical History / Comment(s): Right ankle ORIF, left arm medial nerve surgery 15 years ago; brain surgery due to hemorrhagic stroke, laproscopic cholecystectomy (2016) Past Anesthesia/Blood Transfusion Reactions: No Reported Reaction Date of Last Stent Placement:: Past Psychological History: No Psychological Hx Reported Smoking Status: Former smoker Past Alcohol Use History: None Reported Additional Past Alcohol Use History / Comment(s): Patient is a smoker of one pack per day for 30 years. He stopped 9 months ago He drinks alcohol infrequently. He lives at home with his and 7-year-old daughter. He also has 3 adult daughters that are healthy. 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 Past Drug Use History: None Reported - Past Family History Mother Family Medical History: Diabetes Mellitus Additional Family Medical History / Comment(s): at age 65 from diabetic complications Father Family Medical History: Myocardial Infarction (ME) Brother(s) Additional Family Medical History / Comment(s): He has 2 brothers, one from AIDS at age 56, one brother is alive and underwent CABG in his 50s. Sister(s) Family Medical History: COPD, Diabetes Mellitus Additional Family Medical History / Comment(s): He has 3 sisters, one from COPD, one is alive with diabetes, one alive and healthy. Medications and Allergies Home Medications Medication Instructions Recorded Confirmed Type Atorvastatin [Lipitor] 80 mg PO DAILY #30 tab 12/24/14 06/09/20 Rx Losartan Potassium 100 mg PO DAILY 01/24/18 06/09/20 History Insulin Glargine [Lantus] 24 unit SQ HS 90 Days #3 vial 02/04/18 06/09/20 Rx Aspirin [Adult Low Dose Aspirin EC] 81 mg PO DAILY 06/09/20 06/09/20 History Fluticasone/Vilanterol [Breo 1 puff INHALATION DAILY 06/09/20 06/09/20 History Ellipta 100-25 Mcg Inhaler] Hydrochlorothiazide 12.5 mg PO DAILY 06/09/20 06/09/20 History [hydroCHLOROthiazide] Levothyroxine Sodium 150 mcg PO DAILY 06/09/20 06/09/20 History Umeclidinium Sharon [Incruse 1 puff INHALATION DAILY 06/09/20 06/09/20 History Ellipta] Allergies Allergy/AdvReac Type Severity Reaction Status Date / Time bupropion HCl Allergy Unknown Verified 06/09/20 08:29 [From Wellbutrin] Physical Examination Osteopathic Statement: *. No significant issues noted on an osteopathic structural exam other than those noted in the History and Physical/Consult. - Wrist & Hand right Location of pain: dorsal wrist Appearance: wrist erythema, wrist warmth (diffuse), puncture (At the right wrist there are 4 puncture wounds. The one wound has some depth to it and I removed the scab at the area. I'm able get a small bit of pus from that space. There is no large fluid collection. The other areas do not have any gross fluid collection. There is erythema diffusely over his right wrist and diffuse swelling. There is now outlined marker at the site where it was read yesterday which seems to be improving today. His fingers not have any significant swelling he has full motion of his fingers and wrist and hand and elbow. His compartments are soft.) Results - Labs Labs: Abnormal Lab Results - Last 24 Hours (Table) 06/08/20 06/08/20 06/09/20 Range/Units 23:51 23:51 06:14 WBC 13.2 H (3.8-10.6) k/uL Neutrophils # 9.6 H (1.3-7.7) k/uL Sodium 135 L (137-145) mmol/L Glucose 159 H (74-99) mg/dL POC Glucose (mg/dL) 167 H (75-99) mg/dL C-Reactive Protein 10.2 H (<10.0) mg/L H & H 06/08/20 Range/Units 23:51 Hgb 15.5 (13.0-17.5) gm/dL Hct 47.0 (39.0-53.0) % Coagulation 06/08/20 Range/Units 23:51 INR 1.1 (<1.2) Result Diagrams: 06/08/20 23:51 06/08/20 23:51 Assessment and Plan Assessment: Right wrist infection status post cat bite, apparently superficial Small fluid collection at one of the bite sites on the wrist History of diabetes History of stroke Plan: Right wrist infection status post cat bite, apparently superficial Small fluid collection at one of the bite sites on the wrist History of diabetes History of stroke I spoke with Dr. Laguerre in regards to the patient and he is worried about the site infection particular given the history of diabetes. The patient has been making progress with IV antibiotics which is encouraging. The erythematous area certainly less than it was yesterday according to the outline on his wrist. The patient's compartments are soft and he does not appear to have any evidence of any compartment syndrome or flexor tenosynovitis. His movement in his hand is well maintained without any significant pain. Today at bedside I prepped the area with Betadine and then removed some of the scabbing at the deepest puncture wound. I was able to get a small amount of opening and a small amount of pus out of the wound site itself. I took a culture of this to be sent. I cannot get any further pus from the area. The other sites to not have any apparent fluid collection or pus. I placed small dry dressing over the site which may be removed as needed. If the collection recurs and there is worsening of the erythema that he may need surgical irrigation and debridement. ORIF if he continues to make progress we may be able to continue to treat him with antibiotics and local wound care. Hopefully removing some of the pus and allowing that drainage may help alleviate further erythema and infectious process along with the antibiotics. We will continue to follow closely. We'll make him nothing by mouth after midnight in case we need to taken to the operating room for irrigation and debridement tomorrow. Time with Patient: Greater than 30
[2020-06-09 11:36] LABS: Glucose,Whole Blood 128 mg/dL (75-99)
[2020-06-09] MEDS: IPRATROPIUM 0.5 MG/2.5 ML NEBU INHALATION SCH ×2 (15:07→19:24)
[2020-06-09 16:34] LABS: Glucose,Whole Blood 124 mg/dL (75-99)
[2020-06-09 20:06] LABS: Glucose,Whole Blood 168 mg/dL (75-99)
[2020-06-09] MEDS: INSULIN DETEMIR (LEVEMIR) 100 UNIT/ML SYR SQ SCH (21:15)
[2020-06-10] MEDS: AMPICILLIN-SULBACTAM 3 GM in SODIUM CHLORIDE 0.9% 100 ML IVPB SCH ×4 (05:12→23:13)
[2020-06-10] MEDS: LEVOTHYROXINE 75 MCG TAB PO SCH (05:12)
[2020-06-10] MEDS: SODIUM CHLORIDE 0.9% 1,000 ML IV SCH ×2 (05:12→11:17)
[2020-06-10 06:28] LABS: Glucose,Whole Blood 53 mg/dL (75-99)
[2020-06-10 06:30] LABS: Glucose,Whole Blood 55 mg/dL (75-99)
[2020-06-10] MEDS ORDERED: DEXTROSE 50% SYRINGE 50 ML IVP STA (06:31)
[2020-06-10] MEDS ORDERED: DEXTROSE 50% SYRINGE 50 ML IVP ONE (06:33)
[2020-06-10 06:47] LABS: Glucose,Whole Blood 187 mg/dL (75-99)
[2020-06-10] MEDS: LOSARTAN 50 MG TAB PO SCH (08:18)
[2020-06-10] MEDS: hydroCHLOROthiazide 12.5 MG CAP PO SCH (08:18)
[2020-06-10] MEDS: ATORVASTATIN 80 MG TAB PO SCH (08:18)
[2020-06-10] MEDS: IV FLUID CONTINUATION 1,000 ML IV ONE ×2 (09:34→11:16)
[2020-06-10] MEDS ORDERED: fentaNYL (PF) 50 MCG/ML 2 ML AMP ONE (09:39)
[2020-06-10] MEDS ORDERED: SUCCINYLCHOLINE CHLORIDE 100 MG/5 ML SYR IV ONE (09:39)
[2020-06-10] MEDS ORDERED: LIDOCAINE 1% INJ 10MG/ML (20 ML MDV) ONE (09:39)
[2020-06-10] MEDS ORDERED: PROPOFOL 10 MG/ML 20 ML VIAL IV ONE (09:39)
[2020-06-10] MEDS ORDERED: SODIUM CHLORIDE 0.9% 1,000 ML IV ONE (09:43)
--- NOTE | 2020-06-10 09:51 | P.PN ---
Subjective Progress Note Date: 06/10/20 This is a 65-year-old male well-known to our practice who presents to the emergency room with a cat bite of BITES to the right hand and wrist. This gentleman has a known history of chronic obstructive pulmonary disease, hyperlipidemia myocardial infarction CVA hypertension diabetes TIA and subsequently had stroke 06/10/2020 maintained on IV antibiotics of Unasyn, second phase of bone scan in progress. Wound cultures in progress, and preliminary blood cultures no growth at 24 hours .Afebrile, scheduled for I&D today. NPO at [place], hypoglycemic this morning in the 50s requiring an amp of D50. Blood sugars currently stable. Denies chest pain, palpitations or increasing shortness of breath. Denies n ausea or vomiting. Denies any lightheadedness, dizziness or focal deficits. Objective - Vital Signs Vital signs: Vital Signs Temp 98.0 F 06/10/20 08:12 Pulse 87 06/10/20 08:12 Resp 16 06/10/20 08:12 BP 154/77 06/10/20 08:12 Pulse Ox 98 06/10/20 08:12 Intake & Output 06/09/20 06/10/20 06/10/20 18:59 06:59 18:59 Intake Total 840 Balance 840 Intake: Intake, IV Titration 590 Amount Ampicillin-Sulbactam 3 gm 200 In Sodium Chloride 0.9% 100 ml @ 200 mls/hr IVPB Q6H CLAY Rx#:[id number] Sodium Chloride 0.9% 1, 390 000 ml @ 130 mls/hr IV . Q7H42M CLAY Rx#:[id number] Oral 250 Other: Voiding Method Toilet # Voids 1 1 1 - Exam General: [Patient sitting up in bed, awake, alert and oriented times 3,no acute distress.] HEENT: [PERRL. EOMI. No pharyngeal erythema or exudate.] Neck: [No adenopathy.] Cardiac: [Heart regular in rate and rhythm. No S3. No S4. No clicks, rubs. No murmur.] Lungs: [Scattered rhonchi, occasional scattered fine bibasilar crackles] Abdomen: [No mass. No organomegaly. Bowel sounds presnt and normoactive in all 4 quadrants.] Extremes: Volar aspect of right hand wrist has multiple punctures, erythema, edema, tenderness from mid palm to the mid right forearm Skin: [Warm and dry ,No rash.] Neurologic: [No lateralizing deficits. CN II - XII grossly intact.] - Labs CBC & Chem 7: 06/08/20 23:51 06/08/20 23:51 Labs: Abnormal Lab Results - Last 24 Hours (Table) 06/09/20 06/09/20 06/09/20 Range/Units 11:35 16:33 20:05 POC Glucose (mg/dL) 128 H 124 H 168 H (75-99) mg/dL 06/10/20 06/10/20 06/10/20 Range/Units 06:26 06:28 06:42 POC Glucose (mg/dL) 53 L 55 L 187 H (75-99) mg/dL Microbiology - Last 24 Hours (Table) 06/09/20 00:02 Blood Culture - Preliminary Blood No Growth after 24 hours 06/09/20 11:15 Gram Stain - Preliminary Hand - Right Wound Culture - Preliminary 06/09/20 12:10 Anaerobic Culture - Preliminary Hand - Right Assessment and Plan Assessment: (1) COPD (chronic obstructive pulmonary disease), acute exacerbation Current Visit: Yes Status: Acute Code(s): J44.9 - CHRONIC OBSTRUCTIVE PULMONARY DISEASE, UNSPECIFIED SNOMED Code(s): 33089359 (2) Cat bite, possible osteomyelitis, bone scan in progress. I&D pending Current Visit: Yes Status: Acute Code(s): W55.01XA - BITTEN BY CAT, INITIAL ENCOUNTER SNOMED Code(s): 417847376 (3) Diabetes Current Visit: Yes Status: Acute Code(s): E11.9 - TYPE 2 DIABETES MELLITUS WITHOUT COMPLICATIONS SNOMED Code(s): 20022545 (4) Acute exacerbation of chronic obstructive airways disease Current Visit: No Status: Acute Code(s): J44.1 - CHRONIC OBSTRUCTIVE PULMONARY DISEASE W (ACUTE) EXACERBATION SNOMED Code(s): 089859637 (5) Acute exacerbation of chronic obstructive pulmonary disease (COPD) Current Visit: No Status: Acute Code(s): J44.1 - CHRONIC OBSTRUCTIVE PULMONARY DISEASE W (ACUTE) EXACERBATION SNOMED Code(s): 665097052 (6) CVA (cerebral vascular accident) Current Visit: No Status: Acute Code(s): I63.9 - CEREBRAL INFARCTION, UNSPECIFIED SNOMED Code(s): 780929750 Plan: Continue on current medication regime ,monitoring and symptomatic treatment. Maintain IV antibiotics of Unasyn. Bone scan results pending. Scheduled for I&D today. Decrease IV fluids to 50 MLS per hour, then KVO after procedure. Chest x-ray postprocedure. Close monitoring of Accu-Cheks. The impression and plan of care has been dictated as directed. : I performed a history and examination of this patient, discussed the same with the dictator. I agree with the dictator's note ,documented as a scribe. Any additional findings or plans will be noted.
[2020-06-10 10:36] LABS: Glucose,Whole Blood 72 mg/dL (75-99)
[2020-06-10] MEDS: IPRATROPIUM 0.5 MG/2.5 ML NEBU INHALATION SCH ×3 (11:08→19:48)
[2020-06-10] MEDS: SYMBICORT 80-4.5 MCG INHALER INHALATION SCH ×2 (11:08→19:48)
--- NOTE | 2020-06-10 11:14 | P.OP ---
Date of Procedure: 06/10/20 Preoperative Diagnosis: Right wrist infected wound secondary to cat bite with abscess Right wrist pain Postoperative Diagnosis: Same Anesthesia: GETA Pathology: other (Deep right wrist wound culture sent to microbiology) Condition: stable Disposition: PACU Description of Procedure: BRIEF OPERATIVE NOTE Preoperative Diagnosis:Right wrist infected wound secondary to cat bite with abscess Right wrist pain Postoperative Diagnosis:Right wrist infected wound secondary to cat bite with abscess Right wrist pain Procedure: Irrigation and excisional debridement of right wrist wound infection Deep wound culture right wrist wound Surgeon: Dr. aBin Clerk Rating: None Anesthesia: General anesthesia Estimated blood loss: Approximately 10 mL Complications: None apparent Components implanted: I placed a small iodoform drain in the wound Disposition: To recovery room in good stable condition. OPERATIVE INDICATIONS The patient has been having issues with his right wrist ever since being bitten by his cat at home. He says it is bit More than 15 times this the first time and never got infected. He has a history of diabetes. He was seen yesterday and he had been treated conservatively as outpatient and then here in Hospital. He was having good improvement in Hospital with IV antibiotics and at bedside I performed a small I&D however he continued have significant erythema and evidence of small pocket of fluid at the distal radial puncture wound site. The cellulitis was unchanged from yesterday and was no longer having further improvement. Patient had pain in his wrist particularly with motion. We discussed different treatment options including possibly of formal surgical irrigation and excisional debridement. I discussed risks, patient alternatives and benefits as well as other treatment options. I discussed the potential risks including but not limited to the risk of bleeding risk infection risk and need for further surgery risk of decreased loss of motion was all explant to and patient like to proceed with surgical intervention signed informed consent. OPERATIVE SUMMARY After discussing all the risks, patient alternatives and benefits at length, the patient elected to proceed with surgical intervention, signed informed consent, and presented for their procedure. The patient was seen and examined in the preoperative holding area and the surgical site was marked. The patient was given antibiotics and brought to the operating room. The patient was sedated and intubated by anesthesia in standard fashion. The patient remained on his stretcher and we used a arm board for his right upper extremity. His neck and C-spine and good neutral alignment and position throughout. The patient was prepped and draped in a normal standard fashion. An appropriate timeout and keystone protocol performed. We were able to proceed with the surgery. The area was easily identified in his right wrist. There are 4 small puncture wounds and the most significant one was the distal and radial puncture wound site. I removed the scab and a small amount of pus was able to come out.The area and further pus came through. I extended the incision with sharp scalpel and probe down further. There was a small pocket approximately 1 x 1 cm where there was significant pus that removed from the wound site. It did not seem to involve the joint capsule or the bone. There is some denuded tissue and I performed excisional debridement to remove the denuded and devascularized tissue. Deep cultures were taken and sent to microbiology. I was able to probe the area and remove all the pus. The wound was then copiously irrigated and suctioned dry with a liter of saline. There is no further purulence or pus noted. After the excisional debridement I was able to find good tissue with good potential healing. I placed a quarter inch iodoform gauze at the deep tissue extending out of the wound site. The new incision site was closed with 3-0 nylon. There was cleaned and dried and dressed with bulky dressing with 4 x 4's ABDs and Bang wrap. The drapes are opened down patient was woken up by anesthesia extubated Brodrick of room good stable condition. The deep cultures will be sent to microbiology and we will continue local wound care. I'll plan to remove the eye to form gauze tomorrow at bedside. They were woken up by anesthesia, extubated, and brought to the recovery room in good stable condition. The patient will be admitted to the hospital for observation and for appropriate postoperative care, medical management and monitoring. We will continue to follow them closely about the postoperative course.
--- NOTE | 2020-06-10 13:22 | NM ---
EXAMINATION TYPE: NM bone 3 phase DATE OF EXAM: 06/10/2020 COMPARISON: Right wrist and hand x-rays 2 days ago. HISTORY: Right wrist and hand pain and swelling after cat bite injury. Triple phase bone scintigraphy was performed following the injection of 26.2 mCi Tc 99m MDP. Immedia te images and 4.5 hours post injection images acquired. Imaging is performed of the bilateral wrists and hands. FINDINGS: There is left distal upper extremity arterial injection. Dynamic arterial along with soft tissue phas e images show increased radiotracer uptake diffusely in the distal right forearm along with left wris t and proximal hand up to metacarpal level versus opposite left side. Left-sided venous injection wit h some overlying contamination noted. Delayed phase images show focal increased uptake localized to t he distal radius. IMPRESSION: Confirmation of diffuse cellulitis with focal area of acute osteomyelitis distal radius s uspected.
--- NOTE | 2020-06-10 13:42 | XR ---
EXAMINATION TYPE: XR chest 2V DATE OF EXAM: 06/10/2020 COMPARISON: CTA chest February 12, 2017. Two-view chest x-ray June 08, 2020. HISTORY: COPD with difficulty breathing. TECHNIQUE: Frontal and lateral views of the chest are obtained. FINDINGS: There is elevated left hemidiaphragm and background chronic emphysematous change redemonst rated. No new suspicious focal airspace opacity, pleural effusion, or pneumothorax is seen bilaterall y The cardiac silhouette size remains within normal limits with atherosclerotic change in the aortic knob. The osseous structures are somewhat demineralized with underlying dextroconvex scoliosis red emonstrated. IMPRESSION: Chronic changes without new acute pulmonary process. No significant change from most rec ent x-ray.
[2020-06-10] MEDS: HYDROcodone/APAP 5-325MG 1 EACH TAB PO PRN (13:45)
[2020-06-10 16:12] LABS: Glucose,Whole Blood 140 mg/dL (75-99)
[2020-06-10 21:32] LABS: Glucose,Whole Blood 131 mg/dL (75-99)
--- NOTE | 2020-06-10 22:24 | P.CONS ---
History of Present Illness - Reason for Consult Consult date: 06/10/20 Right wrist cellulitis and question of osteomyelitis Requesting physician: Aneglo Leigh Jr - Chief Complaint Right wrist pain swelling redness x few days - History of Present Illness Patient is 65-year-old male who presented to [facility] ER on 06/08/2024. Pain swelling redness of the right wrist that was progressively getting worse for the last few days before presentation hospital apparently the patient was bitten by his pet cat on the right wrist area subsequently the patient started noticing pain swelling redness of the right wrist that has gr adually increased in severity and was almost 10 out of 10 mg he presented to the hospital and was mostly sharp in nature with associated swelling redness and some drainage on the Route areola patient was evaluated by the physician the patient has been afebrile admission and no fever has been recorded he did have x-rays we did show some soft tissue swelling patient subsequently has been evaluated by orthopedics and the patient was taken to the wound swelling status post I&D and drainage of the right wrist abscess patient also have a bone scan completed which raises the possibility of right radius ostial myelitis patient is currently on Unasyn infections was consulted for further management of antibiotic therapy cultures are currently pending Review of Systems Positive point has been mentioned in the HPI rest of the systems are negative Past Medical History Past Medical History: COPD, CVA/TIA, Diabetes Mellitus, Hyperlipidemia, Hypertension, Thyroid Disorder Additional Past Medical History / Comment(s): Hemorrhagic CVA requiring evacuation surgically done at [facility], [place] [address] recovered approximately 6 months ago, COPD and chronic bronchitis, diabetes mellitus, hypertension, hyperlipidemia Last Myocardial Infarction Date:: unk History of Any Multi-Drug Resistant Organisms: None Reported Past Surgical History: Cholecystectomy, Heart Catheterization With Stent, Orthopedic Surgery Additional Past Surgical History / Comment(s): Right ankle ORIF, left arm medial nerve surgery 15 years ago; brain surgery due to hemorrhagic stroke, laproscopic cholecystectomy (2016) Past Anesthesia/Blood Transfusion Reactions: No Reported Reaction Date of Last Stent Placement:: 2 Past Psychological History: No Psychological Hx Reported Smoking Status: Former smoker Past Alcohol Use History: None Reported Additional Past Alcohol Use History / Comment(s): Patient is a smoker of one pack per day for 30 years. He stopped 9 months ago He drinks alcohol infrequently. He lives at home with his and 7-year-old daughter. He also has 3 adult daughters that are healthy. 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 Past Drug Use History: None Reported - Past Family History Mother Family Medical History: Diabetes Mellitus Additional Family Medical History / Comment(s): at age 65 from diabetic complications Father Family Medical History: Myocardial Infarction ([place]) Brother(s) Additional Family Medical History / Comment(s): He has 2 brothers, one from AIDS at age 56, one brother is alive and underwent CABG in his 50s. Sister(s) Family Medical History: COPD, Diabetes Mellitus Additional Family Medical History / Comment(s): He has 3 sisters, one from COPD, one is alive with diabetes, one alive and healthy. Medications and Allergies Home Medications Medication Instructions Recorded Confirmed Type Atorvastatin [Lipitor] 80 mg PO DAILY #30 tab 12/24/14 06/09/20 Rx Losartan Potassium 100 mg PO DAILY 01/24/18 06/09/20 History Insulin Glargine [Lantus] 24 unit SQ HS 90 Days #3 vial 02/04/18 06/09/20 Rx Aspirin [Adult Low Dose Aspirin EC] 81 mg PO DAILY 06/09/20 06/09/20 History Fluticasone/Vilanterol [Breo 1 puff INHALATION DAILY 06/09/20 06/09/20 History Ellipta 100-25 Mcg Inhaler] Hydrochlorothiazide 12.5 mg PO DAILY 06/09/20 06/09/20 History [hydroCHLOROthiazide] Levothyroxine Sodium 150 mcg PO DAILY 06/09/20 06/09/20 History Umeclidinium [place] [Incruse 1 puff INHALATION DAILY 06/09/20 06/09/20 History Ellipta] Allergies Allergy/AdvReac Type Severity Reaction Status Date / Time bupropion HCl Allergy Unknown Verified 06/09/20 08:29 [From Wellbutrin] Physical Exam Vitals: Vital Signs Temp Pulse Pulse Pulse Resp BP Pulse Ox 06/10/20 15:43 84 06/10/20 15:33 82 06/10/20 14:43 98.5 F 81 16 131/68 96 06/10/20 12:06 98.5 F 81 16 121/81 98 06/10/20 11:22 100 06/10/20 11:11 96 06/10/20 11:10 98.1 F 88 18 141/88 97 06/10/20 10:45 103 H 20 128/65 94 L 06/10/20 10:30 102 H 16 128/65 94 L 06/10/20 10:15 98.2 F 114 H 16 183/92 98 06/10/20 09:35 97 F L 96 155/87 98 06/10/20 08:12 98.0 F 87 16 154/77 98 06/10/20 03:00 97.9 F 88 17 132/81 96 Intake and Output 06/10/20 06/10/20 06/10/20 06:59 14:59 22:59 Intake Total 230 1972 Balance 230 1971 Intake: IV 300 Intake, IV Titration 230 882 Amount Ampicillin-Sulbactam 3 gm 100 102 In Sodium Chloride 0.9% 100 ml @ 200 mls/hr IVPB Q6H [facility] Rx#:[id number] Sodium Chloride 0.9% 1, 130 000 ml @ 130 mls/hr IV . Q7H42M [facility] Rx#:[id number] Sodium Chloride 0.9% 1, 780 000 ml @ 50 mls/hr IV . Q20H CLAY Rx#:[id number] Oral 0 790 Other: Voiding Method Toilet # Voids 1 2 # Bowel Movements 1 GENERAL DESCRIPTION: An elderly male lying in bed, no distress. No tachypnea or accessory muscle of respiration use. HEENT: Shows Pallor , no scleral icterus. Oral mucous membrane is dry. No pharyngeal erythema or thrush NECK: Trachea central, no thyromegaly. LUNGS: Unlabored breathing. Clear to auscultation anteriorly. No wheeze or crackle. HEART: S1, S2, regular rate and rhythm. No loud murmur ABDOMEN: Soft, no tenderness , guarding or rigidity, no organomegaly EXTREMITIES: Right wrist the currently wrapped up in OR dressing no drainage and the dressing SKIN: No rash, no masses palpable. NEUROLOGICAL: The patient is awake, alert, oriented x3, mood and affect normal. Results CBC & Chem 7: 06/08/20 23:51 06/08/20 23:51 Labs: Abnormal Lab Results - Last 24 Hours (Table) 06/10/20 06/10/20 06/10/20 Range/Units 06:26 06:28 06:42 POC Glucose (mg/dL) 53 L 55 L 187 H (75-99) mg/dL 06/10/20 06/10/20 Range/Units 10:35 16:09 POC Glucose (mg/dL) 72 L 140 H (75-99) mg/dL Microbiology - Last 24 Hours (Table) 06/10/20 10:02 Wound Culture - Preliminary Wrist - Right 06/10/20 10:02 Anaerobic Culture - Preliminary Wrist - Right 06/09/20 00:02 Blood Culture - Preliminary Blood No Growth after 24 hours 06/09/20 11:15 Gram Stain - Preliminary Hand - Right Wound Culture - Preliminary 06/09/20 12:10 Anaerobic Culture - Preliminary Hand - Right Assessment and Plan Assessment: 1- patient with her right breast cellulitis Bite now with evidence of abscess has been drained by orthopedist morning with abnormal bone scan suspicious for right radialOsteomyelitis negative from the oral luis of the Wound and the cat bite usually high risk of osteomyelitis because of the sharp teeth and deep penetration (1) Pasteurella cellulitis due to cat bite Current Visit: Yes Status: Acute Code(s): L03.90 - CELLULITIS, UNSPECIFIED; A28.0 - PASTEURELLOSIS; W55.01XA - BITTEN BY CAT, INITIAL ENCOUNTER SNOMED Code(s): 927414475 (2) Osteomyelitis of right radius Current Visit: Yes Status: Acute Code(s): M86.9 - OSTEOMYELITIS, UNSPECIFIED SNOMED Code(s): 68215728 Plan: 1- Unasyn 3 g every 6 hours to continue we will wait for the culture finalized to determine his discharge antibiotics 2- director of casework 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
[2020-06-10] MEDS: INSULIN DETEMIR (LEVEMIR) 100 UNIT/ML SYR SQ SCH (22:31)
[2020-06-11] MEDS: SODIUM CHLORIDE 0.9% 1,000 ML IV SCH (06:11)
[2020-06-11] MEDS: AMPICILLIN-SULBACTAM 3 GM in SODIUM CHLORIDE 0.9% 100 ML IVPB SCH ×3 (06:31→18:24)
[2020-06-11] MEDS: LEVOTHYROXINE 75 MCG TAB PO SCH (06:32)
[2020-06-11 07:02] LABS: Glucose,Whole Blood 53 mg/dL (75-99)
[2020-06-11 07:02] LABS: Glucose,Whole Blood 51 mg/dL (75-99)
[2020-06-11] MEDS ORDERED: DEXTROSE 50% SYRINGE 50 ML IVP ONE (07:11)
[2020-06-11 07:17] LABS: Glucose,Whole Blood 54 mg/dL (75-99)
[2020-06-11 07:20] LABS: Glucose,Whole Blood 236 mg/dL (75-99)
[2020-06-11 07:32] LABS: Basophils # (A) 0.1 k/uL (0-0.2); Basophils % (A) 1 %; Eosinophils # (A) 0.4 k/uL (0-0.7); Eosinophils % (A) 4 %; HCT 42.5 % (39.0-53.0); HGB 13.8 gm/dL (13.0-17.5); Lymphocytes # (A) 2.8 k/uL (1.0-4.8); Lymphocytes % (A) 25 %; MCH 30.3 pg (25.0-35.0); MCHC 32.5 g/dL (31.0-37.0); MCV 93.2 fL (80.0-100.0); Mean Platelet Volume 7.3; Monocytes % (A) 9 %; Neutrophils # (A) 6.9 k/uL (1.3-7.7); Neutrophils % (A) 61 %; Platelet Count 271 k/uL (150-450); RBC 4.56 m/uL (4.30-5.90); RDW 12.3 % (11.5-15.5); WBC 11.3 k/uL (3.8-10.6)
[2020-06-11] MEDS: ATORVASTATIN 80 MG TAB PO SCH (07:51)
[2020-06-11] MEDS: hydroCHLOROthiazide 12.5 MG CAP PO SCH (07:51)
[2020-06-11] MEDS: LOSARTAN 50 MG TAB PO SCH (07:51)
[2020-06-11 08:02] LABS: African American GFR (CKD) >90 (>60 ml/min/1.73 sqM); Anion Gap 7 mmol/L; Blood Urea Nitrogen 9 mg/dL (9-20); Calcium 8.6 mg/dL (8.4-10.2); Carbon Dioxide 27 mmol/L (22-30); Chloride 106 mmol/L (98-107); Glucose 56 mg/dL (74-99); Non-African American GFR(CKD) >90 (>60 ml/min/1.73 sqM); Potassium 3.3 mmol/L (3.5-5.1); Sodium 140 mmol/L (137-145)
[2020-06-11] MEDS: IPRATROPIUM 0.5 MG/2.5 ML NEBU INHALATION SCH ×4 (08:57→19:15)
[2020-06-11] MEDS: SYMBICORT 80-4.5 MCG INHALER INHALATION SCH ×2 (08:57→19:15)
[2020-06-11 11:37] LABS: Glucose,Whole Blood 114 mg/dL (75-99)
[2020-06-11] MEDS ORDERED: Potassium Replacement Protocol 1 EACH MISC MISCELLANE PRN (12:15)
[2020-06-11] MEDS ORDERED: Magnesium Replacement Protocol 1 EACH MISC MISCELLANE PRN (12:16)
--- NOTE | 2020-06-11 12:27 | P.PN ---
Subjective Progress Note Date: 06/11/20 Principal diagnosis: S/P I and D right distal upper extremity/posterior hand/wrist Patient is seen at bedside this morning. He is postop day #1 from I and D left posterior wrist and hand for suspected cat bite infection. He has pain at the surgical site as expected but denies any new complaints. He denies fever, chills, numbness, tingling or other. He has been on IV antibiotics and cultures are pending. Review of systems is negative for calf pain, chest pain, shortness of breath or other Objective - Vital Signs Vital signs: Vital Signs Temp 97.7 F 06/11/20 07:53 Pulse 94 06/11/20 09:08 Resp 20 06/11/20 07:53 BP 144/82 06/11/20 07:53 Pulse Ox 95 06/11/20 07:53 Intake & Output 06/10/20 06/11/20 06/11/20 18:59 06:59 18:59 Intake Total 1971 1290 300 Balance 1971 1290 300 Intake: IV 300 Intake, IV Titration 882 590 Amount Ampicillin-Sulbactam 3 gm 102 200 In Sodium Chloride 0.9% 100 ml @ 200 mls/hr IVPB Q6H [facility] Rx#:[id number] Sodium Chloride 0.9% 1, 390 000 ml @ 130 mls/hr IV . Q7H42M [facility] Rx#:[id number] Sodium Chloride 0.9% 1, 780 000 ml @ 20 mls/hr IV . Q24H CLAY Rx#:[id number] Oral 790 700 300 Other: Voiding Method Toilet Toilet # Voids 2 1 1 # Bowel Movements 1 1 - Exam Inspection reveals wound with gauze wick packing intact. Minimal drainage. Erythema has receded. It is not overly hot. There is some swelling distally. There is no active bleeding. Neurovascular status is intact throughout the uppe r extremity with motor and sensation fully intact. 2+ radial pulse and less than 2 second cap refill is present - Constitutional General appearance: Present: no acute distress - Labs CBC & Chem 7: 06/11/20 07:12 06/11/20 07:12 Labs: Abnormal Lab Results - Last 24 Hours (Table) 06/10/20 06/10/20 06/11/20 Range/Units 16:09 21:31 06:54 WBC (3.8-10.6) k/uL Potassium (3.5-5.1) mmol/L Glucose (74-99) mg/dL POC Glucose (mg/dL) 140 H 131 H 51 L (75-99) mg/dL 06/11/20 06/11/20 06/11/20 Range/Units 06:56 07:10 07:12 WBC 11.3 H (3.8-10.6) k/uL Potassium (3.5-5.1) mmol/L Glucose (74-99) mg/dL POC Glucose (mg/dL) 53 L 54 L (75-99) mg/dL 06/11/20 06/11/20 06/11/20 Range/Units 07:12 07:18 11:36 WBC (3.8-10.6) k/uL Potassium 3.3 L (3.5-5.1) mmol/L Glucose 56 L (74-99) mg/dL POC Glucose (mg/dL) 236 H 114 H (75-99) mg/dL Microbiology - Last 24 Hours (Table) 06/09/20 00:02 Blood Culture - Preliminary Blood No Growth after 48 hours 06/10/20 10:02 Gram Stain - Preliminary Wrist - Right Wound Culture - Preliminary 06/10/20 10:02 Anaerobic Culture - Preliminary Wrist - Right Assessment and Plan Assessment: S/P I and D left wrist. Cat bite infection Plan: Bang was restricting and causing distal swelling thus it was removed. Continue elevation and wound care. Continue IV antibiotics. Awaiting cultures and appreciate ID recommendations. Will continue to follow. Time with Patient: Less than 30
[2020-06-11] MEDS ORDERED: IPRATROPIUM-ALBUTEROL 3 ML NEB INHALATION PRN (13:03)
--- NOTE | 2020-06-11 13:08 | P.PN ---
Subjective Progress Note Date: 06/11/20 This is a 65-year-old male well-known to our practice who presents to the emergency room with a cat bite of BITES to the right hand and wrist. This gentleman has a known history of chronic obstructive pulmonary disease, hyperlipidemia myocardial infarction CVA hypertension diabetes TIA and subsequently had stroke 06/10/2020 maintained on IV antibiotics of Unasyn, second phase of bone scan in progress. Wound cultures in progress, and preliminary blood cultures no growth at 24 hours .Afebrile, scheduled for I&D today. NPO at [place], hypoglycemic this morning in the 50s requiring an amp of D50. Blood sugars currently stable. Denies chest pain, palpitations or increasing shortness of breath. Denies n ausea or vomiting. Denies any lightheadedness, dizziness or focal deficits. 06/11/2020 status post I&D yesterday, tolerated procedure well. Chest x-ray postprocedure reported chronic changes with no new acute pulmonary process. Bone scan completed yesterday, suggests the possibility of right radius osteomyelitis. Infectious disease consulted, with recommendations noted and appreciated. Maintained on Unasyn. Afebrile, WBC 11.3. Final cultures pending. Potassium 3.3. Objective - Vital Signs Vital signs: Vital Signs Temp 97.7 F 06/11/20 07:53 Pulse 94 06/11/20 09:08 Resp 20 06/11/20 07:53 BP 144/82 06/11/20 07:53 Pulse Ox 95 06/11/20 07:53 Intake & Output 06/10/20 06/11/20 06/11/20 18:59 06:59 18:59 Intake Total 1971 1290 300 Balance 1971 1290 300 Intake: IV 300 Intake, IV Titration 882 590 Amount Ampicillin-Sulbactam 3 gm 102 200 In Sodium Chloride 0.9% 100 ml @ 200 mls/hr IVPB Q6H [facility] Rx#:[id number] Sodium Chloride 0.9% 1, 390 000 ml @ 130 mls/hr IV . Q7H42M [facility] Rx#:[id number] Sodium Chloride 0.9% 1, 780 000 ml @ 20 mls/hr IV . Q24H [facility] Rx#:[id number] Oral 790 700 300 Other: Voiding Method Toilet Toilet # Voids 2 1 1 # Bowel Movements 1 1 - Exam General: [Patient sitting up in bed, awake, alert and oriented times 3,no acute distress.] HEENT: [PERRL. EOMI. No pharyngeal erythema or exudate.] Neck: [No adenopathy.] Cardiac: [Heart regular in rate and rhythm. No S3. No S4. No clicks, rubs. No murmur.] Lungs: [Scattered rhonchi, occasional scattered fine bibasilar crackles] Abdomen: [No mass. No organomegaly. Bowel sounds presnt and normoactive in all 4 quadrants.] Extremes: Right forearm dressing clean dry and intact. Positive edema Skin: [Warm and dry ,No rash.] Neurologic: [No lateralizing deficits. CN II - XII grossly intact.] Microbiology 06/09/20 00:02 Blood Blood Culture - Preliminary No Growth after 48 hours 06/10/20 10:02 Wrist - Right Gram Stain - Preliminary 06/10/20 10:02 Wrist - Right Wound Culture - Preliminary 06/10/20 10:02 Wrist - Right Anaerobic Culture - Preliminary 06/09/20 11:15 Hand - Right Gram Stain - Preliminary 06/09/20 11:15 Hand - Right Wound Culture - Preliminary 06/09/20 12:10 Hand - Right Anaerobic Culture - Preliminary - Labs CBC & Chem 7: 06/11/20 07:12 06/11/20 07:12 Labs: Abnormal Lab Results - Last 24 Hours (Table) 06/10/20 06/10/20 06/11/20 Range/Units 16:09 21:31 06:54 WBC (3.8-10.6) k/uL Potassium (3.5-5.1) mmol/L Glucose (74-99) mg/dL POC Glucose (mg/dL) 140 H 131 H 51 L (75-99) mg/dL 06/11/20 06/11/20 06/11/20 Range/Units 06:56 07:10 07:12 WBC 11.3 H (3.8-10.6) k/uL Potassium (3.5-5.1) mmol/L Glucose (74-99) mg/dL POC Glucose (mg/dL) 53 L 54 L (75-99) mg/dL 06/11/20 06/11/20 06/11/20 Range/Units 07:12 07:18 11:36 WBC (3.8-10.6) k/uL Potassium 3.3 L (3.5-5.1) mmol/L Glucose 56 L (74-99) mg/dL POC Glucose (mg/dL) 236 H 114 H (75-99) mg/dL Microbiology - Last 24 Hours (Table) 06/09/20 00:02 Blood Culture - Preliminary Blood No Growth after 48 hours 06/10/20 10:02 Gram Stain - Preliminary Wrist - Right Wound Culture - Preliminary 06/10/20 10:02 Anaerobic Culture - Preliminary Wrist - Right Assessment and Plan Assessment: (1) COPD (chronic obstructive pulmonary disease), acute exacerbation Current Visit: Yes Status: Acute Code(s): J44.9 - CHRONIC OBSTRUCTIVE PULMONARY DISEASE, UNSPECIFIED SNOMED Code(s): 50920165 (2) Cat bite, right wrist abscess, right radius osteomyelitis, status post I&D , cultures pending Current Visit: Yes Status: Acute Code(s): W55.01XA - BITTEN BY CAT, INITIAL ENCOUNTER SNOMED Code(s): 270095839 (3) Diabetes Current Visit: Yes Status: Acute Code(s): E11.9 - TYPE 2 DIABETES MELLITUS WITHOUT COMPLICATIONS SNOMED Code(s): 89019513 (4) Acute exacerbation of chronic obstructive airways disease Current Visit: No Status: Acute Code(s): J44.1 - CHRONIC OBSTRUCTIVE PULMONARY DISEASE W (ACUTE) EXACERBATION SNOMED Code(s): 410975334 (5) Acute exacerbation of chronic obstructive pulmonary disease (COPD) Current Visit: No Status: Acute Code(s): J44.1 - CHRONIC OBSTRUCTIVE PULMONARY DISEASE W (ACUTE) EXACERBATION SNOMED Code(s): 356230239 (6) CVA (cerebral vascular accident) Current Visit: No Status: Acute Code(s): I63.9 - CEREBRAL INFARCTION, U NSPECIFIED SNOMED Code(s): 097424759 (7) hypokalemia Plan: Continue on current medication regime ,monitoring and symptomatic treatment. Cultures pending. Maintain IV antibiotics of Unasyn as per ID. patient has not been receiving his at bedtime neck , then hypoglycemic in a.m. - discussed with RN to ensure patient receives.Close monitoring of Accu-Cheks. Potassium replacement supplements ordered. Magnesium level added on, results pending. Case management arranging outpatient IV antibiotic therapy. Confirming order for PICC line placement as per ID. Discharge planning in progress for tomorrow. The impression and plan of care has been dictated as directed. : I performed a history and examination of this patient, discussed the same with the dictator. I agree with the dictator's note ,documented as a scribe. Any additional findings or plans will be noted.
--- NOTE | 2020-06-11 16:04 | PN ---
PROGRESS NOTE DATE OF SERVICE: 06/11/2020 REASON FOR FOLLOWUP: Right wrist cat bite cellulitis, underlying osteomyelitis. INTERVAL HISTORY: The patient is currently afebrile, has been breathing comfortably. Still complaining of discomfort to the right wrist area, no worsening. No chest pain, shortness of breath or cough. No abdominal pain, no diarrhea. PHYSICAL EXAMINATION: Blood pressure 144/82 with a pulse of 95, temperature is 97.7, he is 95% on room air. General description is an elderly male, lying in bed in no distress. RESPIRATORY SYSTEM: Unlabored breathing, clear to auscultation anteriorly. HEART: S1, S2. Regular rate and rhythm. ABDOMEN: Soft, no tenderness. Right wrist swelling has slightly decreased. LABS: Hemoglobin is 13, white count 11.3, creatinine 0.80. Wound culture showing Gram- negative bacilli. DIAGNOSTIC IMPRESSION/PLAN: Right hand, right forearm cat bite cellulitis with underlying osteomyelitis with right radius wound culture showing gram-negative, possibly . The patient will get a PICC line for outpatient IV antibiotic therapy, likely once a day and continue with oral Flagyl. Continue supportive care. MMODL / IJN: [id number] /
[2020-06-11 16:59] LABS: Glucose,Whole Blood 156 mg/dL (75-99)
[2020-06-11 17:43] VITALS: BMI 25.8
[2020-06-11 20:59] LABS: Glucose,Whole Blood 195 mg/dL (75-99)
[2020-06-11] MEDS: INSULIN DETEMIR (LEVEMIR) 100 UNIT/ML SYR SQ SCH (22:32)
[2020-06-12] MEDS: AMPICILLIN-SULBACTAM 3 GM in SODIUM CHLORIDE 0.9% 100 ML IVPB SCH ×3 (00:15→11:54)
[2020-06-12] MEDS: HYDROcodone/APAP 5-325MG 1 EACH TAB PO PRN (00:15)
[2020-06-12] MEDS: LEVOTHYROXINE 75 MCG TAB PO SCH (05:52)
[2020-06-12] MEDS: SODIUM CHLORIDE 0.9% 1,000 ML IV SCH (06:06)
[2020-06-12 06:32] LABS: Glucose,Whole Blood 142 mg/dL (75-99)
[2020-06-12] MEDS: IPRATROPIUM 0.5 MG/2.5 ML NEBU INHALATION SCH ×3 (08:05→14:53)
[2020-06-12] MEDS: SYMBICORT 80-4.5 MCG INHALER INHALATION SCH (08:06)
[2020-06-12] MEDS: ATORVASTATIN 80 MG TAB PO SCH (08:19)
[2020-06-12] MEDS: LOSARTAN 50 MG TAB PO SCH (08:19)
[2020-06-12] MEDS: hydroCHLOROthiazide 12.5 MG CAP PO SCH (08:20)
--- NOTE | 2020-06-12 08:39 | P.DS ---
Providers Date of admission: 06/10/20 09:13 Expected date of discharge: 06/12/20 Attending physician: Angelo Leigh Consults: 06/09/20 10:58 Consult Physician Routine Consulting Provider: [facility] Consult Reason/Comments: Cat bite right hand and wrist suspect tenosynovitis Do you want consulting provider notified?: Yes 06/10/20 14:36 Consult Physician Routine Consulting Provider: Waqar Last Consult Reason/Comments: osteomylitis Do you want consulting provider notified?: Yes Primary care physician: Lee Galeana [facility] Course: Final Diagnoses (1) COPD (chronic obstructive pulmonary disease), acute exacerbation Current Visit: Yes Status: Acute Code(s): J44.9 - CHRONIC OBSTRUCTIVE PULMONARY DISEASE, UNSPECIFIED SNOMED Code(s): 09907405 (2) Cat bite, right wrist abscess, right radius osteomyelitis, status post I&D , cultures pending Current Visit: Yes Status: Acute Code(s): W55.01XA - BITTEN BY CAT, INITIAL ENCOUNTER SNOMED Code(s): 541725079 (3) Diabetes Current Visit: Yes Status: Acute Code(s): E11.9 - TYPE 2 DIABETES MELLITUS WITHOUT COMPLICATIONS SNOMED Code(s): 74706237 (4) Acute exacerbation of chronic obstructive airways disease Current Visit: No Status: Acute Code(s): J44.1 - CHRONIC OBSTRUCTIVE PULMONARY DISEASE W (ACUTE) EXACERBATION SNOMED Code(s): 985960241 (5) Acute exacerbation of chronic obstructive pulmonary disease (COPD) Current Visit: No Status: Acute Code(s): J44.1 - CHRONIC OBSTRUCTIVE PULMONARY DISEASE W (ACUTE) EXACERBATION SNOMED Code(s): 534851181 (6) CVA (cerebral vascular accident) Current Visit: No Status: Acute Code(s): I63.9 - CEREBRAL INFARCTION, UNSPECIFIED SNOMED Code(s): 890206262 (7) hypokalemia Hospital course:This is a 65-year-old male well-known to our practice who presents to the emergency room with a cat bite of BITES to the right hand and wrist. This gentleman has a known history of chronic obstructive pulmonary disease, hyperlipidemia myocardial infarction CVA hypertension diabetes TIA and subsequently had stroke 06/10/2020 maintained on IV antibiotics of Unasyn, second phase of bone scan in progress. Wound cultures in progress, and preliminary blood cultures no growth at 24 hours .Afebrile, scheduled for I&D today. NPO at [place], hypoglycemic this morning in the 50s requiring an amp of D50. Blood sugars currently stable. Denies chest pain, palpitations or increasing shortness of breath. Denies nausea or vomiting. Denies any lightheadedness, dizziness or focal deficits. 06/11/2020 status post I&D yesterday, tolerated procedure well. Chest x-ray postprocedure reported chronic changes with no new acute pulmonary process. Bone scan completed yesterday, suggests the possibility of right radius osteomyelitis. Infectious disease consulted, with recommendations noted and appreciated. Maintained on Unasyn. Afebrile, WBC 11.3. Final cultures pending. Potassium 3.3. Significant clinical improvement. Patient will be discharged home today in stable condition with guarded prognosis, pending labs, PICC line placement, final DC antibiotics and clearance from ID and orthopedic surgery. The impression and plan of care has been dictated as directed. : I performed a history and examination of this patient, discussed the same with the dictator. I agree with the dictator's note ,documented as a scribe. Any additional findings or plans will be noted. Patient Condition at Discharge: Stable Plan - Discharge Summary Discharge Rx Participant: Yes New Discharge Prescriptions: New Ibuprofen [Motrin] 400 mg PO Q6HR PRN #20 tab PRN Reason: Pain Acetaminophen Tab [Tylenol] 650 mg PO Q6HR PRN tab PRN Reason: Mild Pain Or Fever > 100.5 Pantoprazole [Protonix] 40 mg PO DAILY #30 tablet. Continue Atorvastatin [Lipitor] 80 mg PO DAILY #30 tab Losartan Potassium 100 mg PO DAILY Insulin Glargine [Lantus] 24 unit SQ HS 90 Days #3 vial Umeclidinium [place] [Incruse Ellipta] 1 puff INHALATION DAILY Fluticasone/Vilanterol [Breo Ellipta 100-25 Mcg Inhaler] 1 puff INHALATION DAILY Levothyroxine Sodium 150 mcg PO DAILY Hydrochlorothiazide [hydroCHLOROthiazide] 12.5 mg PO DAILY Aspirin [Adult Low Dose Aspirin EC] 81 mg PO DAILY Discharge Medication List Atorvastatin [Lipitor] 80 mg PO DAILY #30 tab 12/24/14 [Rx] Losartan Potassium 100 mg PO DAILY 01/24/18 [History] Insulin Glargine [Lantus] 24 unit SQ HS 90 Days #3 vial 02/04/18 [Rx] Aspirin [Adult Low Dose Aspirin EC] 81 mg PO DAILY 06/09/20 [History] Fluticasone/Vilanterol [Breo Ellipta 100-25 Mcg Inhaler] 1 puff INHALATION DAILY 06/09/20 [History] Hydrochlorothiazide [hydroCHLOROthiazide] 12.5 mg PO DAILY 06/09/20 [History] Levothyroxine Sodium 150 mcg PO DAILY 06/09/20 [History] Umeclidinium [place] [Incruse Ellipta] 1 puff INHALATION DAILY 06/09/20 [History] Acetaminophen Tab [Tylenol] 650 mg PO Q6HR PRN tab 06/12/20 [Rx] Ibuprofen [Motrin] 400 mg PO Q6HR PRN #20 tab 06/12/20 [Rx] Pantoprazole [Protonix] 40 mg PO DAILY #30 tablet. 06/12/20 [Rx] Follow up Appointment(s)/Referral(s): Yudelka Bain DO [Doctor of Osteopathic Medicine] - 1 Week MID,Infusion [NON-STAFF] - (Please arrive in office starting on 06/2020 at for IV aantibiotic infusions. ) Lee Galeana MD [Primary Care Provider] - 3 Days Waqar Last MD [STAFF PHYSICIAN] - 1 Week (In MID ) Activity/Diet/Wound Care/Special Instructions: Labs pending. Pending PICC line placement, DC antibiotics, clearance from ID. o utpatient labs as per ID. 1. Daily dressing changes over the right upper extremity as needed 2. Activity to tolerance with the right upper extremity
[2020-06-12 08:45] LABS: African American GFR (CKD) >90 (>60 ml/min/1.73 sqM); Anion Gap 6 mmol/L; Blood Urea Nitrogen 13 mg/dL (9-20); Calcium 8.3 mg/dL (8.4-10.2); Carbon Dioxide 27 mmol/L (22-30); Chloride 106 mmol/L (98-107); Glucose 130 mg/dL (74-99); Non-African American GFR(CKD) >90 (>60 ml/min/1.73 sqM); Potassium 3.8 mmol/L (3.5-5.1); Sodium 139 mmol/L (137-145)
[2020-06-12] MEDS ORDERED: PANTOPRAZOLE 40 MG TABLET PO SCH (08:45)
[2020-06-12 08:58] LABS: Basophils # (A) 0.1 k/uL (0-0.2); Basophils % (A) 1 %; Eosinophils # (A) 0.4 k/uL (0-0.7); Eosinophils % (A) 5 %; HCT 41.4 % (39.0-53.0); HGB 13.4 gm/dL (13.0-17.5); Lymphocytes # (A) 1.7 k/uL (1.0-4.8); Lymphocytes % (A) 24 %; MCH 30.7 pg (25.0-35.0); MCHC 32.5 g/dL (31.0-37.0); MCV 94.4 fL (80.0-100.0); Mean Platelet Volume 7.7; Monocytes # (A) 0.8 k/uL (0-1.0); Monocytes % (A) 10 %; Neutrophils # (A) 4.2 k/uL (1.3-7.7); Neutrophils % (A) 58 %; Platelet Count 235 k/uL (150-450); RBC 4.38 m/uL (4.30-5.90); RDW 12.1 % (11.5-15.5); WBC 7.2 k/uL (3.8-10.6)
[2020-06-12 09:16] VITALS: RESP 12
--- NOTE | 2020-06-12 10:45 | P.PN ---
Progress Note - Text Progress Note Date: 06/12/20 Postoperative day #2 Patient is seen and examined today at bedside. The patient has some pain around the surgical site as expected. Pain is being controlled with medication.he feels his infection is improving. Physical Exam Afebrile with stable vital signs Abdomen is soft nontender. Chest has good excursion deep and space expiration The incision site is clean dry and intact. sutures are intact.He is moving his fingers fairly well his wrist is somewhat sore when he moves up he is able to move adequately. The incision site is not having any draining. There is no appreciable fluid collection. There is still some erythema around the area.his compartments are soft throughout. Extremities have not had neurologic change from prior to surgery. Calves and thighs were soft nontender without evidence of DVT. Assessment/Plan Postoperative day #2 says was irrigation and debridement with excisional debridement ofabscess at the right wrist due to a cat bite Patient is progressing as expected from the surgery. he is making progress with antibiotics. He was found to have osteomyelitis at his distal radius on the bone scan and is scheduled to have long-term IV antibiotics as per infectious disease. He is awaiting his PICC line placement state onset is stable he will be okay for discharge. It is okay from orthopedic standpoint for discharge once his IV antibiotics were established. A plan to see him back in We will continue to increase the patient's mobilization with therapy. We will continue pain control with oral or IV medications. We'll continue to follow patient closely.
[2020-06-12 11:40] LABS: Glucose,Whole Blood 81 mg/dL (75-99)
[2020-06-12 12:11] VITALS: PULSE 80
[2020-06-12] MEDS ORDERED: LIDOCAINE 1% INJ 10MG/ML (20 ML MDV) SQ ONE (15:22)
--- NOTE | 2020-06-12 15:26 | PN ---
PROGRESS NOTE DATE OF SERVICE: 06/12/2020 REASON FOR FOLLOWUP: Right wrist cat bite cellulitis and underlying osteomyelitis. INTERVAL HISTORY: Patient is currently afebrile, has been breathing comfortably. The patient denies having any chest pain, shortness of breath, no nausea, no vomiting, no abdominal pain. PHYSICAL EXAMINATION: Blood pressure 102/60 with a pulse of 78, temperature is 98.8, she is 96% on room air. General description is an elderly male up in the bed in no distress. RESPIRATORY SYSTEM: Unlabored breathing, clear to auscultation anteriorly. HEART: S1, S2, regular rate and rhythm. Abdomen: Soft, no tenderness. Right forearm swelling has come down. LABS: Hemoglobin , white count normal, blood cultures, possible IMPRESSION: Patient with right forearm cat bite cellulitis with concern for underlying osteomyelitis. PLAN: Rocephin daily. MMODL / IJN: [id number] /
[2020-06-12] MEDS ORDERED: metroNIDAZOLE 500 MG TAB PO SCH (16:00)
--- NOTE | 2020-06-12 16:11 | IR ---
EXAMINATION TYPE: IR cvc insert >=5 years DATE OF EXAM: 06/12/2020 COMPARISON: 06/10/2020 chest radiograph CLINICAL HISTORY: Infection, need for long-term antibiotics MILIEU COORDINATOR: Dr. Cherie Zheng DO PROCEDURE: The procedure was discussed with the patient. The risks, complications, benefits, and alternatives we re discussed and any questions were answered. Informed consent was obtained. Maximal barrier technique utilized. The skin overlying the left basilic vein was localized with ultra sound and noted to be compressible and patent. An ultrasound image was obtained and submitted on the patient's chart. Sterile technique utilized with the ultrasound machine. The skin overlying was prep ped and draped and Lidocaine used for local anesthesia. Access was gained to the vein under ultrasoun d guidance with a 21 gauge needle and a 0.018 inch wire was advanced. A skin arpit was made with a sca lpel. Access site was dilated with Peel-Away sheath. 5 FR single lumen catheter tailored to the appro priate length of 52 cm and advanced such that the distal tip is at the cavoatrial junction. Spot imag e was obtained verifying PICC placement. Catheter was fixed to the skin and a sterile dressing was pl aced following hemostasis. Catheter was aspirated and flushed with saline. Patient was discharged fro m the radiology department in stable condition without immediate complication. Fluoro time: 0.2 Fluoroscopic images obtained: 26 IMPRESSION: Status post ultrasound-guided and fluoroscopic-guided PICC placement, ready for use.
[2020-06-12 16:47] VITALS: BP 111/74; TEMP 98
[2020-06-12 16:47] LABS: Glucose,Whole Blood 126 mg/dL (75-99)
== END 2020-06-12 18:45 | disposition home health service (06) | DRG 623 ==
LOC: EC 22:54 → 1SOBS 06-09 01:04 → OBSVTOIN 06-10 09:13
PROVIDERS: ADMIT Family Medicine; ATTEND Family Medicine
PROC: 0X9 Anatomical Regions, Upper Extremities, Drainage (ICD-10-PCS; 2020-06-09)
PROC: 0JBG0ZZ Excision of Right Lower Arm Subcutaneous Tissue and Fascia, Open Approach (ICD-10-PCS; principal; 2020-06-10 11:20)
PROC: 02HV33Z Insertion of Infusion Device into Superior Vena Cava, Percutaneous Approach (ICD-10-PCS; 2020-06-12)
DX: E11.69 Type 2 diabetes mellitus with other specified complication (principal); J44.1 Chronic obstructive pulmonary disease with (acute) exacerbation; L02.413 Cutaneous abscess of right upper limb; L03.113 Cellulitis of right upper limb; M86.141 Other acute osteomyelitis, right hand; A28.0 Pasteurellosis; E11.649 Type 2 diabetes mellitus with hypoglycemia without coma; E78.5 Hyperlipidemia, unspecified; E87.6 Hypokalemia; I10 Essential (primary) hypertension; I25.2 Old myocardial infarction; Z79.4 Long term (current) use of insulin; R09.02 Hypoxemia; S61.451A Open bite of right hand, initial encounter; S61.539A Puncture wound without foreign body of unspecified wrist, initial encounter; S61.551A Open bite of right wrist, initial encounter; W55.01XA Bitten by cat, initial encounter; Z79.51 Long term (current) use of inhaled steroids; Z79.82 Long term (current) use of aspirin; Z79.890 Hormone replacement therapy; Z79.899 Other long term (current) drug therapy; Z82.49 Family history of ischemic heart disease and other diseases of the circulatory system; Z11.59 Encounter for screening for other viral diseases; Z82.5 Family history of asthma and other chronic lower respiratory diseases; Z83.0 Family history of human immunodeficiency virus [HIV] disease; Z83.3 Family history of diabetes mellitus; Z86.73 Personal history of transient ischemic attack (TIA), and cerebral infarction without residual deficits; Z87.891 Personal history of nicotine dependence; Z90.49 Acquired absence of other specified parts of digestive tract; Z86.19 Personal history of other infectious and parasitic diseases; E07.9 Disorder of thyroid, unspecified
CPT/HCPCS: 36415; 36573; 71046; 78315; 80048; 80053; 83605; 83735; 85025; 85610; 85652; 85730; 86140; 87040; 87070; 87075; 87205; 94640; 96361; 96365; 96375; 99285

== ENCOUNTER 2021-11-04 18:17 | Emergency (ER) | payer MEDICARE ==
[2021-11-04 19:00] VITALS: TEMP 98.2
[2021-11-04] MEDS ORDERED: ONDANSETRON 4 MG/2 ML VIAL IVP STA (20:23)
[2021-11-04] MEDS ORDERED: SODIUM CHLORIDE 0.9% 1,000 ML IV ONE (20:23)
[2021-11-04 20:44] VITALS: RESP 20
--- NOTE | 2021-11-04 20:58 | ED ---
General Adult HPI - General Chief complaint: Shortness of Breath Stated complaint: Covid+/BAM Time Seen by Provider: 11/04/21 20:05 Source: patient Mode of arrival: ambulatory Limitations: no limitations - History of Present Illness Initial comments: 66-year-old male patient presents to the emergency department today for infusion monoclonal antibodies after testing positive on a home test day. States he started having symptoms on Wednesday. He states symptoms include loss of taste and smell, mild cough, nausea, and diarrhea. He denies any increased shortness of breath. Reports intermittent fever, chills, and headache. Denies taking any medication for symptoms today. Does have history of COPD and wears oxygen as needed at home. He does take Symbicort on a daily basis. Patient denies any recent rash, chest pain, abdominal pain, constipation, back pain, numbness, tingling, dizziness, weakness, hematuria, dysuria, urinary urgency, urinary freq uency, visual changes, or any other complaints. - Related Data Home Medications Medication Instructions Recorded Confirmed Losartan Potassium 100 mg PO DAILY 01/24/18 06/09/20 Aspirin [Adult Low Dose Aspirin EC] 81 mg PO DAILY 06/09/20 06/09/20 Fluticasone/Vilanterol [Breo 1 puff INHALATION DAILY 06/09/20 06/09/20 Ellipta 100-25 Mcg Inhaler] Hydrochlorothiazide 12.5 mg PO DAILY 06/09/20 06/09/20 [hydroCHLOROthiazide] Levothyroxine Sodium 150 mcg PO DAILY 06/09/20 06/09/20 Umeclidinium [place] [Incruse 1 puff INHALATION DAILY 06/09/20 06/09/20 Ellipta] Previous Rx's Medication Instructions Recorded Atorvastatin [Lipitor] 80 mg PO DAILY #30 tab 12/24/14 Insulin Glargine [Lantus Vial] 24 unit SQ HS 90 Days #3 vial 02/04/18 Acetaminophen Tab [Tylenol] 650 mg PO Q6HR PRN tab 06/12/20 HYDROcodone/APAP 5-325MG [Goodell 1 each PO Q6HR PRN #12 tab 06/12/20 5-325] Ibuprofen [Motrin] 400 mg PO Q6HR PRN #20 tab 06/12/20 Pantoprazole [Protonix] 40 mg PO DAILY #30 tablet. 06/12/20 metroNIDAZOLE [Flagyl] 500 mg PO TID #90 tab 06/12/20 Ondansetron [Zofran ODT] 4 mg PO Q8HR PRN #10 tab 11/04/21 guaiFENesin-DM 600/30MG [Mucinex 1 each PO Q12HR #10 tab 11/04/21 Dm] Allergies Allergy/AdvReac Type Severity Reaction Status Date / Time bupropion HCl Allergy Unknown Verified 11/04/21 18:59 [From Wellbutrin] Review of Systems ROS Statement: Those systems with pertinent positive or pertinent negative responses have been documented in the HPI. ROS Other: All systems not noted in ROS Statement are negative. Past Medical History Past Medical History: COPD, CVA/TIA, Diabetes Mellitus, Hyperlipidemia, Hypertension, Thyroid Disorder Additional Past Medical History / Comment(s): Hemorrhagic CVA requiring evacua tion surgically done at [facility], shinglesx2 recovered approximately 6 months ago, COPD and chronic bronchitis, diabetes mellitus, hypertension, hyperlipidemia Last Myocardial Infarction Date:: unk History of Any Multi-Drug Resistant Organisms: None Reported Past Surgical History: Cholecystectomy, Heart Catheterization With Stent, Orthopedic Surgery Additional Past Surgical History / Comment(s): Right ankle ORIF, left arm medial nerve surgery 15 years ago; brain surgery due to hemorrhagic stroke, laproscopic cholecystectomy (2015) Past Anesthesia/Blood Transfusion Reactions: No Reported Reaction Date of Last Stent Placement:: Past Psychological History: No Psychological Hx Reported Smoking Status: Former smoker Past Alcohol Use History: None Reported Past Drug Use History: None Reported - Past Family History Mother Family Medical History: Diabetes Mellitus Additional Family Medical History / Comment(s): at age 65 from diabetic complications Father Family Medical History: Myocardial Infarction ([place]) Brother(s) Additional Family Medical History / Comment(s): He has 2 brothers, one from AIDS at age 56, one brother is alive and underwent CABG in his 50s. Sister(s) Family Medical History: COPD, Diabetes Mellitus Additional Family Medical History / Comment(s): He has 3 sisters, one from COPD, one is alive with diabetes, one alive and healthy. General Exam Limitations: no limitations General appearance: alert, in no apparent distress, other (This is a well- developed, well-nourished adult male in no acute distress.) ENT exam: Present: normal exam, normal oropharynx, mucous membranes moist Respiratory exam: Present: normal lung sounds bilaterally. Absent: respiratory distress, wheezes, rales, rhonchi, stridor Cardiovascular Exam: Present: regular rate, normal rhythm, normal heart sounds. Absent: systolic murmur, diastolic murmur, rubs, gallop, clicks GI/Abdominal exam: Present: soft, normal bowel sounds. Absent: distended, tende rness, guarding, rebound, rigid Neurological exam: Present: alert, oriented X3, CN II-XII intact Psychiatric exam: Present: normal affect, normal mood Skin exam: Present: warm, dry, intact, normal color. Absent: rash Course Vital Signs 11/04/21 11/04/21 11/04/21 18:55 20:35 20:41 Temperature 98.2 F Pulse Rate 113 H Respiratory 18 20 Rate Blood Pressure 114/68 O2 Sat by Pulse 91 L 92 L Oximetry 11/04/21 22:00 Temperature Pulse Rate 101 H Respiratory 20 Rate Blood Pressure 89/69 O2 Sat by Pulse 93 L Oximetry Medical Decision Making - Medical Decision Making 66-year-old male patient presented to the emergency department today for evaluation after testing positive for COVID-19 at home. Physical examination revealed diminished lung sounds. He was 90-93% on room air upon arrival. Chest x-ray showed Chronically elevated diaphragm. He did receive monoclonal antibody infusion without difficulty. He will be discharged home with instructions to wear oxygen and follow up with his primary care physician for recheck in 1-2 days. Return parameters were discussed in detail. He verbalizes understanding and agrees with this plan. My attending is Dr. Kim. - Lab Data Lab Results 11/04/21 Range/Units 19:00 Coronavirus (PCR) Detected A (Not Detectd) - Radiology Data Radiology results: report reviewed, image reviewed Review x-ray of the chest is obtained. Report was reviewed in its entirety. Impression by Dr. Prather shows mild chronic elevation of the left diaphragm could relate to some paralysis. Normal heart. No change. Disposition Clinical Impression: COVID-19 Disposition: HOME SELF-CARE Condition: Good Instructions (If sedation given, give patient instructions): Coronavirus Disease 2019 (COVID-19) Additional Instructions: Tips to help you feel better: -Maintain adequate fluid intake - especially water. -Rest, you are healing your body will require extra sleep. -Eat even if you do not feel like it - broth, jello, toast are fine if you cannot eat full meals. -Take tylenol and motrin alternating (if you have no allergies or have not been instructed to avoid these medications) to help with body aches and fevers. -Obtain over the counter vitamin C, zinc, and vitamin D3. -Take medications as prescribed. Follow-up with your primary care physician for recheck in 1-2 days. Return for any new, worsening, or concerning symptoms. Prescriptions: guaiFENesin-DM 600/30MG [Mucinex Dm] 1 each PO Q12HR #10 tab Ondansetron [Zofran ODT] 4 mg PO Q8HR PRN #10 tab PRN Reason: Nausea Is patient prescribed a controlled substance at d/c from ED?: No Referrals: Lee Galeana MD [Primary Care Provider] - 1-2 days Time of Disposition: 23:06
[2021-11-04] MEDS ORDERED: BAMLANIVIMAB (EUA) 700 MG, ETESEVIMAB (EUA) 1,400 MG in SODIUM CHLORIDE 0.9% 100 ML IVPB ONE (21:00)
[2021-11-04] MEDS ORDERED: SODIUM CHLORIDE 0.9% 50 ML IVPB ONE (21:00)
[2021-11-04 22:01] VITALS: BP 89/69; PULSE 101
--- NOTE | 2021-11-04 22:20 | XR ---
EXAMINATION TYPE: XR chest 2V DATE OF EXAM: 11/04/2021 COMPARISON: 06/10/2020 HISTORY: Short of breath TECHNIQUE: FINDINGS: There is slight elevated left diaphragm. Heart is normal. Lungs are clear. Consolidation. T here are no hilar masses. Bony thorax appears intact. IMPRESSION: Mild chronic elevation of the left diaphragm could relate to some paralysis. Normal heart . No change.
== END 2021-11-04 23:53 | disposition home or self-care (01) ==
LOC: EC 18:17
DX: U07.1 COVID-19 (principal); J44.9 Chronic obstructive pulmonary disease, unspecified; E11.9 Type 2 diabetes mellitus without complications; I10 Essential (primary) hypertension; E07.9 Disorder of thyroid, unspecified; I25.2 Old myocardial infarction; Z86.73 Personal history of transient ischemic attack (TIA), and cerebral infarction without residual deficits; Z87.891 Personal history of nicotine dependence; Z88.8 Allergy status to other drugs, medicaments and biological substances; Z79.899 Other long term (current) drug therapy; Z79.51 Long term (current) use of inhaled steroids; Z79.890 Hormone replacement therapy; Z79.82 Long term (current) use of aspirin
CPT/HCPCS: 87635; 71046; 99285; 96374; 96361; J2405; J3490

== ENCOUNTER → 2023-04-22 | Outpatient (CLI) | payer MEDICARE ==
[2023-04-22 15:45] LABS: African American GFR (CKD) >90 (>60 ml/min/1.73 sqM); Blood Urea Nitrogen 17 mg/dL (9-20); Non-African American GFR(CKD) 81 (>60 ml/min/1.73 sqM)
--- NOTE | 2023-04-22 16:34 | CT ---
EXAMINATION TYPE: CT angio chest CT DLP: 513.9 mGycm, Automated exposure control for dose reduction was used. DATE OF EXAM: 04/22/2023 4:15 PM COMPARISON: CTA chest 02/12/2017, 08/03/2016 CLINICAL INDICATION:Male, 68 years old with history of I71.20 THORACIC AORTIC ANEURYSM, WITHOUT RUPTU RE,; f/u anuerysm TECHNIQUE/CONTRAST: CTA scan of the thorax is performed without and with IV Contrast, patient injected with 100 mL of Iso lucy 370, MIP images are created and reviewed. 3-D reformats of the aorta was performed on a separate workstation. FINDINGS: Lungs/Pleura: No evidence of pleural effusion or pneumothorax. Partial atelectasis of the right middl e lobe. Moderate centrilobular emphysematous changes. No suspicious pulmonary nodule. Airway: Trace secretions within the trachea. Heart: Heart is within normal limits for size.. No pericardial effusion. Moderate to severe coronary microcalcifications. Vasculature: No intramural hematoma or dissection. Moderate atelectatic calcification of the aorta an d its branches. Stable ascending thoracic aortic aneurysm measuring up to 4.3 cm when measuring with similar technique. Similar aneurysmal dilatation of the aortic root measuring up to 4.3 cm when measu ring with similar technique. Ectasia of the descending thoracic aorta measuring up to 2.9 cm, previou sly 2.5 cm. Mediastinum: Mildly enlarged precarinal lymph node measuring up to 1.2 cm short axis. Slightly increa sed from prior examination and measure 6 oh meters short axis. Musculoskeletal: No acute osseous abnormalities Soft Tissues: Unremarkable. Lower neck: No significant findings. Upper Abdomen: Postcholecystectomy changes. Splenic flexure diverticulosis without evidence for acute diverticulitis. IMPRESSION: 1. Stable ascending thoracic aortic aneurysm and aortic root aneurysm from prior examination. Increa sed ectasia of the descending thoracic aorta. 2. Nonspecific mildly enlarged precarinal lymph node measuring up to 1.2 cm. This may be reactive. 3. Moderate COPD changes.
--- NOTE | 2023-04-23 11:08 | CA ---
Transthoracic Echo Report Name: Rizwana Roberts Age: 68 Gender: M : 1955 Exam Date: 04/22/2023 14:57 Exam Location: [facility] Ht (in): 68 Wt (lb): 174 Ordering Physician: Lee Galeana MD Attending/Referring Phys: Yon Yoon MD Education Reviewer Deidra Page RDCS Procedure CPT: Indications: I71.20 THORACIC AORTIC ANEURYSM, WITHOUT RUPTURE, Cardiac Hx: Technical Quality: Fair Contrast 1: Total Dose (mL): Contrast 2: Total Dose (mL): MEASUREMENTS (Male / Female) Normal Values 2D ECHO LV Diastolic Diameter PLAX 2.7 cm 4.2 - 5.9 / 3.9 - 5.3 cm LV Systolic Diameter PLAX 1.4 cm IVS Diastolic Thickness 1.1 cm 0.6 - 1.0 / 0.6 - 0.9 cm LVPW Diastolic Thickness 1.1 cm 0.6 - 1.0 / 0.6 - 0.9 cm LV Relative Wall Thickness 0.8 RV Internal Dim ED PLAX 2.5 cm LA Volume 37.3 cm??? 18 - 58 / 22 - 52 cm??? M-MODE Aortic Root Diameter MM 4.2 cm LA Systolic Diameter MM 2.6 cm LA Ao Ratio MM 0.6 AV Cusp Separation MM 2.3 cm DOPPLER AV Peak Velocity 101.7 cm/s AV Peak Gradient 4.1 mmHg AV Mean Velocity 61.8 cm/s AV Mean Gradient 1.9 mmHg AV Velocity Time Integral 19.0 cm LVOT Peak Velocity 78.9 cm/s LVOT Peak Gradient 2.5 mmHg LVOT Velocity Time Integral 15.2 cm MV Area PHT 2.6 cm??? Mitral E Point Velocity 69.2 cm/s Mitral A Point Velocity 83.2 cm/s Mitral E to A Ratio 0.8 MV Deceleration Time 289.9 ms MV E' Velocity 6.8 cm/s Mitral E to MV E' Ratio 10.1 TR Peak Velocity 248.6 cm/s TR Peak Gradient 24.7 mmHg FINDINGS Left Ventricle Normal Left ventricular size, wall thickness, systolic function with no obvious regional wall motion abnormalities. Normal Left ventricular diastolic filling pattern. Left ventricular ejection fraction is estimated at 55-60 %. Right Ventricle Normal right ventricular size and function. Right ventricular systolic pressure within normal limits. Right Atrium Normal right atrial size. Left Atrium Normal left atrial size. Mitral Valve Structurally normal mitral valve. No mitral stenosis, regurgitation or prolapse. Aortic Valve Trileaflet aortic valve. No aortic valve stenosis or regurgitation. Tricuspid Valve Structurally normal tricuspid valve. Mild tricuspid regurgitation. Pulmonic Valve Structurally normal pulmonic valve. Pericardium No pericardial effusion. Aorta Mildly dilated aortic annulus. CONCLUSIONS 1. Normal left ventricular size and function 2. Mild tricuspid regurgitation 3. Mildly dilated ascending aorta Previewed by: Dr. Humberto Pulido MD (Electronically Signed) Final Date: 23 April 2023 11:07
== END | disposition home or self-care (01) ==
LOC: RADECHMAIN 14:46
PROVIDERS: ATTEND Family Medicine
DX: I71.21 Aneurysm of the ascending aorta, without rupture (principal); J44.9 Chronic obstructive pulmonary disease, unspecified; R59.0 Localized enlarged lymph nodes
CPT/HCPCS: 93306; 82565; 84520; 71275; 36415; Q9967

== ENCOUNTER → 2024-04-24 | Outpatient (CLI) | payer MEDICARE ==
[2024-04-24 13:22] LABS: African American GFR (CKD) >90 (>60 ml/min/1.73 sqM); Blood Urea Nitrogen 16 mg/dL (9-20); Non-African American GFR(CKD) 89 (>60 ml/min/1.73 sqM)
--- NOTE | 2024-04-24 14:17 | CT ---
EXAMINATION TYPE: CT angio chest DATE OF EXAM: 04/24/2024 COMPARISON: 04/22/2023 HISTORY: Follow-up thoracic aortic aneurysm CONTRAST: CTA thoracic aorta with 3-D reconstruction is performed without Oral Contrast and with IV Contrast, p atient injected with 100 mL of Isovue 370. Contrast CTA of the thoracic aorta was performed from the lung apex through the upper abdomen. 3D re construction imaging obtained at a separate workstation. CT Chest: THORACIC AORTA: Essentially stable ascending thoracic aortic aneurysm measuring 4.4 cm AP dimension b y 4.4 cm previously. The aortic arch and descending thoracic aorta are stable with mild ectasia is se en. There is mural thrombus noted. There is no evidence of dissection. LUNGS: Chronic elevation left hemidiaphragm. The lungs are clear and free of infiltrate or atelectasi s. No pulmonary nodule or mass is detected. No pleural effusion or CT evidence of interstitial lung disease. MEDIASTINUM: No evidence for mediastinal hematoma. The heart is not enlarged. No evidence for med iastinal mass or adenopathy. HILAR STRUCTURES: No evidence for mass. No hilar adenopathy is appreciated. OTHER: No significant abnormality. IMPRESSION- Stable ascending thoracic aortic aneurysm.
== END | disposition home or self-care (01) ==
LOC: RADCTMAIN 12:53
PROVIDERS: ATTEND Thoracic Surgery (Cardiothoracic Vascular Surgery)
DX: I71.21 Aneurysm of the ascending aorta, without rupture (principal); I71.20 Thoracic aortic aneurysm, without rupture, unspecified
CPT/HCPCS: 82565; 84520; 71275; 36415; Q9967

== ENCOUNTER → 2025-01-02 | Outpatient (CLI) | payer MEDICARE | LOC: CPPFTMAIN 07:26 | PROVIDERS: ATTEND Internal Medicine Critical Care Medicine | DX: J96.11 Chronic respiratory failure with hypoxia (principal); Z88.8 Allergy status to other drugs, medicaments and biological substances; Z87.891 Personal history of nicotine dependence | CPT/HCPCS: 94060; 94726; 94729 ==

== ENCOUNTER → 2025-05-08 | Outpatient (CLI) | payer MEDICARE ==
[2025-05-08 14:03] LABS: African American GFR (CKD) >90 (>60 ml/min/1.73 sqM); Blood Urea Nitrogen 16 mg/dL (9-20); Non-African American GFR(CKD) 80 (>60 ml/min/1.73 sqM)
--- NOTE | 2025-05-08 16:07 | CT ---
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 MIP images are created and reviewed. CT DLP: 686.[address] CTDI: mGy Automated exposure control for dose reduction was used. FINDINGS: There are moderate emphysematous changes. There is a small calcified granuloma in the right lower lobe. There is no suspicious lung mass or nodule. No acute cardiopulmonary disease There is no airspace consolidation or abnormal interstitial density. 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 There is no mediastinal, hilar or axillary adenopathy. Limited scanning through the upper abdomen reveals no gross abnormality. There are no focal osseous lesions. IMPRESSION: 1. Stable 4.3-4.4 cm dilatation of ascending thoracic aorta. 2. stable 4.3 cm dilatation of the aortic root. 3. Moderate emphysematous changes 4. No acute cardiopulmonary disease. [facility], , 05/08/2025 4:05 PM
== END | disposition home or self-care (01) ==
LOC: RADCTMAIN 13:16
PROVIDERS: ATTEND Thoracic Surgery (Cardiothoracic Vascular Surgery)
DX: I77.810 Thoracic aortic ectasia (principal); J43.9 Emphysema, unspecified
CPT/HCPCS: 82565; 84520; 71275; 36415; Q9967